=== PATIENT | male | born 1950 | race Caucasian/White ===

== ENCOUNTER 2020-10-16 08:57 | Outpatient (REF) | payer OTHER, SELFPAY ==
[2020-10-16 10:18] LABS: Glucose Urine UA NEG (NEG); Leukocyte Esterase Urine NEG (NEG); Nitrite Urine NEG (NEG); PH 6.5 (5.0-8.0); Specific Gravity - Urine 1.015 (1.005-1.025); Urine Blood NEG (NEG); Urine Ketones NEG (NEG); Urine Protein NEG (NEG-TRACE)
[2020-10-16 10:21] LABS: Basophils Percent Auto 0.9 % (0-2); Eosinophils Absolute Auto 0.3 X10*3/uL (0.0-0.4); Eosinophils Percent Auto 7.4 % (0-4); Hematocrit 39.3 % (42-52); Hemoglobin 13.1 g/dl (14.0-18.0); Imm Gran Abs Auto 0.01 X10*3/uL (0.00-0.03); Imm Gran Pct Auto 0.3 % (0.0-0.4); Lymphocytes Absolute Auto 1.2 X10*3/uL (1.2-4.9); Lymphocytes Percent Auto 36.3 % (20-40); MANUAL DIFF FLAG SCAN; Mean Corpuscular HGB Conc 33.3 g/dl (31.0-36.0); Mean Corpuscular Hemoglobin 30.5 pg (27.0-33.0); Mean Corpuscular Volume 91.4 fL (80-98); Monocytes Absolute Auto 0.8 X10*3/uL (0.1-1.2); Monocytes Percent Auto 23.8 % (2-11); Neutrophils Absolute Auto 1.1 X10*3/uL (2.0-8.3); Neutrophils Percent Auto 31.3 % (45-73); Platelet Count 164 X10*3/uL (160-400); Red Cell Distribution Width 12.3 % (11.0-16.0); SCAN SMEAR FLAG 1; White Blood Count 3.4 X10*3/uL (4.8-10.8)
[2020-10-16 10:22] LABS: Appearance Urine CLEAR; Color Urine YELLOW
[2020-10-16 10:31] LABS: RBC Urine 0-2 /HPF (0); WBC Urine 0 /HPF (0-4)
[2020-10-16 10:39] LABS: Alanine Aminotransferase 26 U/L (0-40); Albumin Level 4.4 g/dL (3.5-5.0); Alkaline Phosphatase 82 U/L (39-117); Anion Gap 12 (12-20); Aspartate Amino Transferase 27 U/L (5-37); Bilirubin Total 1.3 mg/dL (0.0-1.0); Blood Urea Nitrogen 20 mg/dL (9-16); C Reactive Protein 0.07 mg/dL (< or = 0.50); Carbon Dioxide 26 mmol/L (22-29); Chloride 106 mmol/L (96-108); Cholesterol 133 mg/dL; Estimated Glomerular Filt Rate 47; Glucose Random 95 mg/dL (60-115); HDL Cholesterol 41 mg/dL; LDL Cholesterol Calculated 75 mg/dl; Potassium 4.5 mmol/L (3.3-5.1); Sodium 139 mmol/L (135-145); Triglycerides 89 mg/dL
[2020-10-16 10:59] LABS: PSA,Total (Free>4and<10) 4.95 ng/mL (0.00-4.00); Thyroid Stimulating Hormone 0.47 uIU/mL (0.32-4.0)
[2020-10-16 11:29] LABS: SLIDE REVIEW VERIFIED
[2020-10-16 11:39] LABS: Erythrocyte Sedimentation Rate 8 MM/HR (0-15)
[2020-10-18 13:27] LABS: Free Prostate Spec Ag 1.6 ng/mL; Percent Free Prostate Spec Ag 36 % (calc) (>25); Prostate Specific Ag Total 4.4 ng/mL (< OR = 4.0)
[2020-10-19 11:27] LABS: CRP High Sensitivity 0.7 mg/L
== END 2020-10-16 08:58 | disposition home or self-care (01) ==
LOC: HO.LAB 08:57
DX: Z00.01 Encounter for general adult medical examination with abnormal findings (principal); Z12.5 Encounter for screening for malignant neoplasm of prostate; N40.0 Benign prostatic hyperplasia without lower urinary tract symptoms
CPT/HCPCS: 36415; 80053; 80061; 81001; 84153; 84154; 84443; 85025; 85652; 86140; 86141

== ENCOUNTER 2021-01-25 12:44 | Emergency (ER) | payer OTHER, SELFPAY ==
--- NOTE | ~2021-01-25 | XR_ITS ---
EXAMINATION: RIGHT HAND. RIGHT FINGERS CLINICAL INFORMATION: Pinky injury. Pain COMPARISON: None TECHNIQUE: Right hand 3 views right fingers 2 views. FINDINGS: Right hand: There is a comminuted fracture of proximal phalanx mid segment fifth digit. The fracture does not extend to the articular surface. Rest of the visualized fingers in the right hand is unremarkable. Soft tissue laceration suspected along the proximal phalanx fifth digit XR/XR hand RT min 3V IMPRESSION: Comminuted fracture proximal phalanx mid segments of digit. There is soft tissue laceration as well. The fracture does not extend to the articular surface.
--- NOTE | ~2021-01-25 | XR_ITS ---
EXAMINATION: RIGHT HAND. RIGHT FINGERS CLINICAL INFORMATION: Pinky injury. Pain COMPARISON: None TECHNIQUE: Right hand 3 views right fingers 2 views. FINDINGS: Right hand: There is a comminuted fracture of proximal phalanx mid segment fifth digit. The fracture does not extend to the articular surface. Rest of the visualized fingers in the right hand is unremarkable. Soft tissue laceration suspected along the proximal phalanx fifth digit XR/XR finger RT min 2V IMPRESSION: Comminuted fracture proximal phalanx mid segments of digit. There is soft tissue laceration as well. The fracture does not extend to the articular surface.
[2021-01-25 12:50] VITALS: BP 158/74; PULSE 67; RESP 18; TEMP 36.6; O2SAT 98; BMI 28.2
[2021-01-25] MEDS: Lidocaine HCl 1 % MPF 5 ML VIAL SUBCUT ×3 (13:56→14:15)
[2021-01-25] MEDS: Diphth,Pertus(ACell),Tet Adult 0.5 ML SYRINGE IM (13:57)
[2021-01-25] MEDS: cephALEXin 500 MG CAPSULE PO (14:57)
--- NOTE | 2021-01-25 14:59 | ED.WOUNDLAC ---
HPI - Wound/Laceration General Chief Complaint: Wound/Laceration Stated Complaint: R HAND LAC Time Seen by Provider: 01/25/21 13:30 History of Present Illness HPI narrative: Patient complains of laceration to right hand and right pinky when a piece of wood kicked back and hit him in the hand well and was using a table saw, he does complain of some decreased sensation and difficulty moving the finger, no other injury Related Data Home Medications Medication Instructions Recorded Confirmed amlodipine 1 tab PO DAILY 02/01/21 02/01/21 atorvastatin 1 tab PO DAILY 02/01/21 02/01/21 cephalexin 1 tab PO QID 02/01/21 02/01/21 methylprednisolone mg PO 02/01/21 02/01/21 metoprolol succinate 1 tab PO DAILY 02/01/21 02/01/21 omeprazole 1 cap PO QAM 02/01/21 02/01/21 tramadol 1 tab PO Q6H PRN 02/01/21 02/01/21 valsartan 1 tab PO DAILY 02/01/21 02/01/21 Previous Rx's Medication Instructions Recorded hydrocodone-acetaminophen 1 - 2 tab PO Q6H PRN #20 tab 02/01/21 Allergies Allergy/AdvReac Type Severity Reaction Status Date / Time codeine [From CODITUSSIN AC] Allergy Intermediate VOMITING Verified 01/31/21 11:34 guaifenesin Allergy Intermediate VOMITING Verified 01/31/21 11:34 [From CODITUSSIN AC] lactose [LACTOSE] Allergy Intermediate GI Verified 01/31/21 11:34 UPSET/DIARRHEA liquid codein Allergy Unknown Unknown Uncoded 01/25/21 14:58 Review of Systems Review of Systems: positive for right hand and right 5th finger laceration Negatives are no head injury no headache no neck pain no back pain no difficulty breathing no fainting Yes all other systems are reviewed and are negative PMFSH Past Medical History Source: nursing notes reviewed Medical History Arthritis High cholesterol HTN (hypertension) Social History Social History Patient Tobacco Use Status: Current someday Tobacco user Tobacco use type: Cigar Use of substances other than those prescribed or required for medical reasons: No Are you DNR?: No Advance Directives: No Advance Directives Information Provided: Yes 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 Physical Exam Vital Signs: Vital Signs: Last Vital Signs Temp 98 F 01/25/21 12:50 Pulse 67 01/25/21 12:50 Resp 18 01/25/21 12:50 BP 158/74 H 01/25/21 12:50 Pulse Ox 98 01/25/21 12:50 Body Mass Index 28.2 general appearance no distress Head is normocephalic atraumatic Neck is supple Respiratory no distress There is a 4 cm laceration at the base of the right 5th finger which is into subcutaneous tissue, the finger is deformed at the middle phalanx and extension and flexion are poorly evaluated so cannot confirm whether there is a tendon deficit, sensation is decreased distal Course Course Course Narrative: right hand laceration 4 cm is cleansed and irrigated with normal saline, explored for foreign body none seen, lidocaine was used for anesthesia using 6 cc of 1% lidocaine The wound was closed with 5 0 nylon suture 7 sutures, bleeding was controlled and bandage was applied X-ray did show a comminuted open fracture so antibiotic was started and patient is referred to Hand doctor for evaluation of possible tendon deficits which could not be evaluated properly given the fracture and for further treatment for opened angulated fracture Discharge Plan Discharge Clinical Impression: Open fracture Patient Disposition: Home, Self-Care Additional Instructions: X-ray showed you broke the finger with a deep large laceration so you need antibiotics to prevent infection We gave a tetanus shot I could not fully evaluate tendon function so you need to follow-up with hand doctor for re-evaluation and to see if you need any further procedure for the broken finger Return any time for redness pain swelling fever red stripe up arm discharge from wound any sign of infected Prescriptions: No Action atorvastatin 40 mg tablet 1 tab PO DAILY RF: 0 metoprolol succinate 200 mg tablet extended release 24 hr 1 tab PO DAILY RF: 0 amlodipine 5 mg tablet 1 tab PO DAILY RF: 0 omeprazole 40 mg capsule,delayed release(DR/EC) 1 cap PO QAM RF: 0 tramadol 50 mg tablet 1 tab PO Q6H PRN (Reason: Pain) RF: 0 valsartan 320 mg tablet 1 tab PO DAILY RF: 0 cephalexin 500 mg tablet 1 tab PO QID RF: 0 methylprednisolone 4 mg tablets,dose pack PO RF: 0 hydrocodone-acetaminophen 5-325 mg tablet 1 - 2 tab PO Q6H PRN (Reason: pain) Qty: 20 RF: 0 Referrals: Crista Sheth MD [Physician] - 2 days (Open fracture left 5th finger proximal phalanx, difficult to evaluate full flexion due to the fracture so cannot confirm tendon function normal) Interventions: ED Discharge Assessment Last Done: 01/25/21 15:08 Discharge Date/Time: 01/25/21 15:16
== END 2021-01-25 15:16 | disposition home or self-care (01) ==
PROVIDERS: Emergency Provider Emergency Medicine Emergency Medical Services
DX: S62.616B Displaced fracture of proximal phalanx of right little finger, initial encounter for open fracture (principal); I10 Essential (primary) hypertension; W20.8XXA Other cause of strike by thrown, projected or falling object, initial encounter; Y93.89 Activity, other specified; Y92.9 Unspecified place or not applicable; Y99.9 Unspecified external cause status
CPT/HCPCS: 12042; 73130; 73140; 90471; 90715; 99283; 99284

== ENCOUNTER 2021-01-28 07:27 | Outpatient (REF) | payer OTHER, SELFPAY ==
--- NOTE | ~2021-01-28 | XR_ITS ---
EXAMINATION: XR HAND, RIGHT CLINICAL INFORMATION: Fifth digit injury. Follow-up radiograph. COMPARISON: Right hand radiographs on 01/25/2021. TECHNIQUE: PA, lateral, and oblique views of the right hand. FINDINGS: Redemonstrated is a comminuted fracture of the proximal phalanx of the 5th digit. The fracture does not appear to extend into either articular surface. The remainder of the right hand is unchanged in appearance from the recent prior examination. No additional fractures identified. XR/XR hand RT min 3V IMPRESSION: Comminuted fracture of the proximal phalanx of the 5th digit, not significantly changed from 01/25/2021.
== END 2021-01-28 07:28 | disposition home or self-care (01) ==
LOC: HO.XRAY 07:27
PROVIDERS: Visit Provider Physician Assistant
DX: S62.617B Displaced fracture of proximal phalanx of left little finger, initial encounter for open fracture (principal)
CPT/HCPCS: 73130

== ENCOUNTER 2021-01-28 08:55 | Outpatient (REF) | payer OTHER, SELFPAY | END 2021-01-28 08:56 | disposition home or self-care (01) | LOC: HO.HOSX 08:55 | PROVIDERS: Visit Provider Physician Assistant | DX: Z13.89 Encounter for screening for other disorder (principal) ==

== ENCOUNTER 2021-01-31 07:18 | Outpatient (REF) | payer OTHER, SELFPAY ==
--- NOTE | ~2021-01-31 | XR_ITS ---
EXAMINATION: XR HAND, RIGHT CLINICAL INFORMATION: Right finger fracture. COMPARISON: 01/28/2021 and studies dating back to 01/25/2021. TECHNIQUE: PA, lateral, and oblique views of the right hand. FINDINGS: There is again noted to be a comminuted fracture involving the 5th proximal phalanx with approximately 3 mm of volar displacement of the major distal fracture fragment and dorsal angulation of the major distal fracture fragment. No significant change in alignment is appreciated. No definite new periosteal reaction. There is degenerative change of the distal interphalangeal joint with some marginal spurring and some subcortical irregularity of the 2nd and 5th fingers. XR/XR hand RT min 3V IMPRESSION: No significant change in alignment of comminuted fracture proximal 5th phalanx without definite periosteal new bone formation identified.
== END 2021-01-31 07:19 | disposition home or self-care (01) ==
LOC: HO.HOSX 07:18
PROVIDERS: Visit Provider Physician Assistant
DX: S62.616B Displaced fracture of proximal phalanx of right little finger, initial encounter for open fracture (principal); S64.40XA Injury of digital nerve of unspecified finger, initial encounter
CPT/HCPCS: 73130

== ENCOUNTER 2021-02-01 09:36 | Day surgery (SDC) | payer OTHER, SELFPAY ==
--- NOTE | 2021-01-31 11:01 | HO.ANESPROP2 ---
Documented by User: Alondra Suzan 01/31/21 11:03 HPI - Anesthesia Eval Consult details Narrative: 71yo M for Right Small Finger Fx ORIF,I&D,poss fdp and fds repair,poss digital nerve repair PMFSH Active Problems Active Problems: All Active Problems (Updated 01/28/21 @ 11:58 by Zina Watt PA-C) Open finger fracture (Acute) Fracture of proximal phalanx of finger of right hand (Acute) Hand pain (Acute) Past Medical History Medical History Arthritis High cholesterol HTN (hypertension) Social History Social History Patient Tobacco Use Status: Current someday Tobacco user Tobacco use type: Cigar Use of substances other than those prescribed or required for medical reasons: No Are you DNR?: No Advance Directives: No Advance Directives Information Provided: Yes 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 Meds Allergies Allergy/AdvReac Type Severity Reaction Status Date / Time codeine [From CODITUSSIN AC] Allergy Intermediate VOMITING Verified 01/31/21 11:34 guaifenesin Allergy Intermediate VOMITING Verified 01/31/21 11:34 [From CODITUSSIN AC] lactose [LACTOSE] Allergy Intermediate GI Verified 01/31/21 11:34 UPSET/DIARRHEA liquid codein Allergy Unknown Unknown Uncoded 01/25/21 14:58 Home Medications Medication Instructions Recorded Confirmed Last Taken Type amlodipine 1 tab PO DAILY 02/01/21 02/01/21 02/01/21 History atorvastatin 1 tab PO DAILY 02/01/21 02/01/21 02/01/21 History cephalexin 1 tab PO QID 02/01/21 02/01/21 02/01/21 History methylprednisolone mg PO 02/01/21 02/01/21 Unknown History metoprolol succinate 1 tab PO DAILY 02/01/21 02/01/21 02/01/21 History omeprazole 1 cap PO QAM 02/01/21 02/01/21 02/01/21 History tramadol 1 tab PO Q6H PRN 02/01/21 02/01/21 Unknown History valsartan 1 tab PO DAILY 02/01/21 02/01/21 02/01/21 History Exam Exam Date and Time: January 31, 2021 1101 Assessment and Plan Assessment Anesthesia Assessment: Chart Reviewed Documented by User: Salma Marr 02/01/21 10:44 PMF Past Medical History Medical History Arthritis High cholesterol HTN (hypertension) Social History Social History Patient Tobacco Use Status: Current someday Tobacco user Tobacco use type: Cigar Use of substances other than those prescribed or required for medical reasons: No Are you DNR?: No Advance Directives: No Advance Directives Information Provided: Yes 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 Meds Allergies Allergy/AdvReac Type Severity Reaction Status Date / Time codeine [From CODITUSSIN AC] Allergy Intermediate VOMITING Verified 01/31/21 11:34 guaifenesin Allergy Intermediate VOMITING Verified 01/31/21 11:34 [From CODITUSSIN AC] lactose [LACTOSE] Allergy Intermediate GI Verified 01/31/21 11:34 UPSET/DIARRHEA liquid codein Allergy Unknown Unknown Uncoded 01/25/21 14:58 Home Medications Medication Instructions Recorded Confirmed Last Taken Type amlodipine 1 tab PO DAILY 02/01/21 02/01/21 02/01/21 History atorvastatin 1 tab PO DAILY 02/01/21 02/01/21 02/01/21 History cephalexin 1 tab PO QID 02/01/21 02/01/21 02/01/21 History methylprednisolone mg PO 02/01/21 02/01/21 Unknown History metoprolol succinate 1 tab PO DAILY 02/01/21 02/01/21 02/01/21 History omeprazole 1 cap PO QAM 02/01/21 02/01/21 02/01/21 History tramadol 1 tab PO Q6H PRN 02/01/21 02/01/21 Unknown History valsartan 1 tab PO DAILY 02/01/21 02/01/21 02/01/21 History Exam Airway Mallampati Class: II (Edentulous) TM Dist: >3cm Neck ROM: Full Denture: Upper and Lower Loose/Missing/Broken Teeth: Yes, Upper and Lower Heart: RRR Lungs: CTA Assessment and Plan Assessment Anesthesia Assessment: Anesthesia Plan Discussed and Chart Reviewed Final Anesthetic Review NPO: Yes ASA Class: II Final Preanesthetic Review: Meds/Allgs Chart Reviewed, Consent Obtained/Reviewed and Anes Risks/Benef Reviewed Patient Risk: Low Procedure Risk: Low Anesthetic Plan Anesthetic Plan: GA Disposition: Standard PACU
[2021-02-01] VITALS (7 sets, daily range): BP systolic 127–178; BP diastolic 57–86; PULSE 62–73; RESP 16; TEMP 36.3–36.4; O2SAT 97–99; BMI 28.2
--- NOTE | ~2021-02-01 | FL_ITS ---
EXAMINATION: XR FLUOROSCOPY WITH IMAGES CLINICAL INFORMATION: Reduction right fifth finger proximal phalanx COMPARISON: Radiographs right hand 01/31/2021 TECHNIQUE: Fluoroscopy performed by Dr. Crista Sheth. Fluoroscopy time: 1.1 minutes DAP: 277.33 mGycm2 Images: 7 FINDINGS: The comminuted fracture fifth finger proximal phalanx is reduced and fixed with 2 metallic pins. Major fracture fragments are in near anatomic alignment. No dislocation. FL/FL guidance in OR IMPRESSION: Status post reduction comminuted fracture right fifth finger proximal phalanx.
[2021-02-01] MEDS: Lactated Ringers 1,000 ML 100 ML IVCONT (10:23)
--- NOTE | 2021-02-01 11:01 | MHC.SHP ---
Pre-Procedural Eval Section A Date of Service: 02/01/21 Section B Chief Complaint: small finger fx Allergies: Allergies Allergy/AdvReac Type Severity Reaction Status Date / Time codeine [From CODITUSSIN AC] Allergy Intermediate VOMITING Verified 01/31/21 11:34 guaifenesin Allergy Intermediate VOMITING Verified 01/31/21 11:34 [From CODITUSSIN AC] lactose [LACTOSE] Allergy Intermediate GI Verified 01/31/21 11:34 UPSET/DIARRHEA liquid codein Allergy Unknown Unknown Uncoded 01/25/21 14:58 Plan I have reviewed the history and physical and performed a pertinent physical examination on my patient. No changes have occurred unless specified.
--- NOTE | 2021-02-01 11:02 | W.PM.OPN ---
Operative Note Operative Note Date of Service: 02/01/21 Narrative: Operative Note Narrative: Preop diagnosis: 1. right small finger proximal phalanx fracture, comminuted and open 2. Near amputation of right small finger at the base of the proximal phalanx with injury to the ulnar digital nerve and possibly flexor tendons. Postop diagnosis: 1. right small finger proximal phalanx fracture, comminuted and open 2. Near amputation of right small finger at the base of the proximal phalanx with ulnar digital nerve and ulnar digital artery avulsions Procedure: 1. right small finger proximal phalanx fracture I&D 2. right small finger proximal phalanx fracture open reduction internal fixation 3. right small finger ulnar digital nerve neurolysis 4. Right small finger I and D of flexor digitorum superficialis and flexor digitorum profundus tendons at the A2 devyn 5. Ulnar nerve block Surgeon: Crista Sheth MD Anesthesia: General Findings: finger fracture Implants: 0.045 K-wires times 2 Tourniquet time: 75 minutes EBL: Minimal Specimen: None Drains: None Complications: None Disposition: Brought to the recovery room in stable condition Plan: continue oral antibiotics until finished. Follow-up in 1 week for a wound check, postop radiographs and for placement in a short-arm Finger spica cast or splint Anticipate K-wire removal in 4-5 weeks based on interval bony healing Educate the patient that full fracture healing anticipated in approximately 8-12 weeks. Indications: The patient is 71 years old with a near amputation of the right small finger at its base following a table saw injury with kickback of a piece of wood into his right small finger. . The risks and benefits of operative treatment, including but not limited to risk of damage to blood vessels, nerves, tendons, infection, recurrence, delayed or nonunion of fracture, persistent pain or numbness, incomplete resolution of preoperative symptoms, or need for further surgery were discussed with the patient and they wished to proceed with surgery. Procedure: Once consent was obtained patient was brought back to the operating suite and placed in the operating table in a supine position. . Perioperative antibiotics and general anesthesia was administered by the anesthesia team. A tourniquet was applied to the proximal aspect of the Right upper extremity and the limb was prepped and draped in a standard surgical fashion. the limb was elevated and exsanguinated with an Esmarch bandage and the tourniquet inflated to 250 mm Hg for a total tourniquet time of 75 minutes. sutures were removed from and 8 cm long transverse laceration extending from the Dorsal ulnar aspect of the base of the small finger volarly to just proximal to the 4th webspace. the wound was opened using tenotomy scissors. The wound clearly extended down to the flexor tendon sheath at the A2 devyn, as well as the underlying comminuted fracture of the shaft of the proximal phalanx. And exploration of the wound proceeded. The ulnar digital artery was identified and found to be avulsed. The ulnar digital nerve was identified and a neurolysis was performed, evaluating the ends of the ulnar digital nerve. It to had sustained an avulsion injury to the point of rupture And was deemed irreparable. The proximal phalanx fracture was comminuted and in an apex volar position protruding volar to the flexor tendons on the ulnar side and also up against the volar surface of the flexor tendons. The wound was clean with no debris or evidence of foreign body. The flexor tendons were exposed, as there was some disruption of a portion of the A2 devyn. Both the FDP and FDS tendons were evaluated and found to be intact. The tendons were copiously irrigated. And irrigation and debridement was also performed on the open fracture site, and an open reduction of the fracture was performed. The FluoroScan was used during the case to assist with our fracture reduction and placement of all implants. A 0.045 K-wire was placed through the ulnar base of the proximal phalanx. This was advanced across the fracture site and into the shaft. A 2nd 0.045 K-wire was placed through the radial base of the proximal phalanx and similarly advanced across the fracture site and into the shaft. Fracture alignment was assessed for both angular and rotational malalignment. Once satisfied with our fracture reduction and implant placement, the K-wires were bent and cut short and pin caps applied. Final fluoroscopic images were then obtained. evaluation of the flexor tendons again over the fracture site revealed that the tendons were no longer passing directly over the sharp ends of the fracture site. The Wound was again copiously irrigated with normal saline. nonviable tissue was debrided. I also sharply debrided the skin edges using a 15. Blade and iris scissors to facilitate healing. The skin edges were then reapproximated with some 4-0 and 5 0 Prolene suture material. [An ulnar nerve block was then performed by infiltrating about the ulnar nerve at the wrist with some 1% lidocaine with epinephrine for postop pain control.] A Sterile dressing and short volar splint extending to the forearm To the fingertipswas applied. The patient appears to have tolerated the procedure well and with no complications. All digits were well vascularized at the conclusion of the case.
== END 2021-02-01 14:51 | disposition home or self-care (01) ==
PROVIDERS: Visit Provider Orthopaedic Surgery
PROC: (CPT 26735; principal; 2021-02-01 11:20)
DX: S62.616B Displaced fracture of proximal phalanx of right little finger, initial encounter for open fracture (principal); S64.496A Injury of digital nerve of right little finger, initial encounter; S65.011A Laceration of ulnar artery at wrist and hand level of right arm, initial encounter; W45.8XXA Other foreign body or object entering through skin, initial encounter; W29.8XXA Contact with other powered hand tools and household machinery, initial encounter; Y93.89 Activity, other specified; Y92.9 Unspecified place or not applicable; Y99.8 Other external cause status; I10 Essential (primary) hypertension; F17.290 Nicotine dependence, other tobacco product, uncomplicated; Z79.899 Other long term (current) drug therapy; Z88.8 Allergy status to other drugs, medicaments and biological substances
CPT/HCPCS: 26735; 64450; 64417; J0131; J0690; J1100; J1170; J2250; J2405; J3010

== ENCOUNTER 2021-02-09 10:27 | Outpatient (REF) | payer OTHER, SELFPAY ==
--- NOTE | ~2021-02-09 | XR_ITS ---
EXAMINATION: XR HAND, RIGHT CLINICAL INFORMATION: Pain COMPARISON: Previous x-ray most recent 01/31/2021 TECHNIQUE: PA, lateral, and oblique views of the right hand. FINDINGS: There are 2 wires transfixing the comminuted fracture of the proximal phalanx of the fifth finger. Orthopedic hardware appears unchanged. Fracture lines are still seen. Bone alignment is unchanged. No bony callus formation is seen. XR/XR hand RT min 3V IMPRESSION: ORIF of comminuted fracture proximal phalanx of the fifth finger.
== END 2021-02-09 10:28 | disposition home or self-care (01) ==
LOC: HO.HOSX 10:27
PROVIDERS: Visit Provider Orthopaedic Surgery
DX: S64.40XA Injury of digital nerve of unspecified finger, initial encounter (principal); S62.616B Displaced fracture of proximal phalanx of right little finger, initial encounter for open fracture
CPT/HCPCS: 73130

== ENCOUNTER 2021-02-16 08:24 | Outpatient (REF) | payer OTHER, SELFPAY ==
--- NOTE | ~2021-02-16 | XR_ITS ---
EXAMINATION: XR HAND, RIGHT CLINICAL INFORMATION: Right hand pain. Fracture follow up. COMPARISON: Most recent right hand radiographs dated 02/09/2021. TECHNIQUE: PA, lateral, and oblique views of the right hand. FINDINGS: Orthopedic pins redemonstrated across a comminuted, mildly displaced 5th proximal phalangeal fracture. No evidence of hardware complication. No change in fracture alignment. Mild new bone/callus formation. XR/XR hand RT min 3V IMPRESSION: Orthopedic pins across a 5th proximal phalangeal fracture in unchanged anatomic alignment with mild new bone/callus formation.
== END 2021-02-16 08:25 | disposition home or self-care (01) ==
LOC: HO.HOSX 08:24
PROVIDERS: Visit Provider Orthopaedic Surgery
DX: S62.616B Displaced fracture of proximal phalanx of right little finger, initial encounter for open fracture (principal); S64.40XD Injury of digital nerve of unspecified finger, subsequent encounter
CPT/HCPCS: 73130

== ENCOUNTER → 2021-02-24 09:19 | Outpatient (BNVA) | payer OTHER, SELFPAY | PROVIDERS: PCP Orthopaedic Surgery; Visit Provider Orthopaedic Surgery ==

== ENCOUNTER 2021-03-09 08:13 | Outpatient (REF) | payer OTHER, SELFPAY ==
--- NOTE | ~2021-03-09 | XR_ITS ---
EXAMINATION: XR HAND, RIGHT CLINICAL INFORMATION: Right hand pain COMPARISON: February 16, 2021 and studies dating back to January 25, 2021 TECHNIQUE: PA, lateral, and oblique views of the right hand. FINDINGS: 2 pins are again seen transfixing fracture of the right fifth proximal phalanx. No change in alignment is identified. No change in appearance is seen. Fracture lines still evident. There remains degenerative joint disease involving the fifth distal interphalangeal joint with joint space narrowing and spurring present. There is some subchondral cyst formation is present at multiple other interphalangeal joint spaces. XR/XR hand RT min 3V IMPRESSION: No change in appearance or alignment of right fifth proximal phalanx fracture.
== END 2021-03-09 08:14 | disposition home or self-care (01) ==
LOC: HO.HOSX 08:13
PROVIDERS: Visit Provider Orthopaedic Surgery
DX: S64.40XA Injury of digital nerve of unspecified finger, initial encounter (principal); S62.616B Displaced fracture of proximal phalanx of right little finger, initial encounter for open fracture; M25.641 Stiffness of right hand, not elsewhere classified; M79.641 Pain in right hand
CPT/HCPCS: 73130

== ENCOUNTER 2021-04-09 08:40 | Outpatient (REF) | payer OTHER, SELFPAY ==
[2021-04-09 11:04] LABS: Alanine Aminotransferase 21 U/L (0-40); Albumin Level 4.5 g/dL (3.5-5.0); Alkaline Phosphatase 81 U/L (39-117); Anion Gap 14 (12-20); Aspartate Amino Transferase 23 U/L (5-37); Blood Urea Nitrogen 17 mg/dL (9-16); Calcium 9.9 mg/dL (8.4-10.2); Carbon Dioxide 25 mmol/L (22-29); Chloride 107 mmol/L (96-108); Cholesterol 135 mg/dL; Estimated Glomerular Filt Rate 42; Glucose Random 92 mg/dL (60-115); HDL Cholesterol 38 mg/dL; LDL Cholesterol Calculated 72 mg/dl; Potassium 4.9 mmol/L (3.3-5.1); Sodium 141 mmol/L (135-145); Triglycerides 127 mg/dL
[2021-04-09 12:02] LABS: Erythrocyte Sedimentation Rate 7 MM/HR (0-15)
[2021-04-11 12:32] LABS: CRP High Sensitivity 0.6 mg/L
== END 2021-04-09 08:41 | disposition home or self-care (01) ==
LOC: HO.LAB 08:40
DX: E78.2 Mixed hyperlipidemia (principal); I10 Essential (primary) hypertension
CPT/HCPCS: 36415; 80053; 80061; 85652; 86141

== ENCOUNTER 2021-04-19 13:30 | Outpatient (RCR) | payer OTHER, SELFPAY ==
--- NOTE | 2021-03-17 14:48 | MHC.OT.OEV ---
[address] [phone] F: [phone] Occupational Therapy Evaluation Diagnosis: Digital nerve laceration of right little finger Open fracture of proximal phalanx of right little finger Date of Onset: 01/25/21 Date of Surgery: 02/01/21 Attending Provider: Crista Sheth Prescribed Treatment: NITA AND HIRO MD Follow Up Appointment: 04/20/21 History of Current Condition: Pt was working with a tablesaw on 01/25/2021 when he hit a knot in the piece of wood that he was cutting. There was kicked back of this piece of wood into the ulnar aspect of his right hand causing an injury to the right small finger and ulnar aspect of the hand. He does not believe that his hand touch the table saw, but rather the injury was sustained by the piece of wood. He was taken to the operating room on 02/01/2021 where he underwent an I and D of his right small finger proximal phalanx fracture, and open reduction internal fixation of the proximal phalanx fracture. The ulnar digital nerve and ulnar digital artery were both torn with extensive injury and irreparable. The FDS and FDP tendons were found within the open flexor tendon sheath at the A2 devyn. They were intact, but unfortunately overlie the open comminuted proximal phalanx fracture. Pt removed from cast 03/09/21. Significant Medical History: N/A Precautions/Contraindications: POST-OP Patient Goals: GRASP GOLF CLUBS Hand Dominance: Left QuickDASH Score: 28% Prior Level of Function and Occupation Self Care, Employment, Leisure: RECENTLY RETURNED BACK TO WORK [employer], SELF EMPLOYED. LIFTS UP TO 75 POUNDS. 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 MODERATELY LIMITED WITH PARTICIPATING IN HOBBIES, INCLUDING SWINGING AND HOLDING GOLF CLUB. MAKING STEADY IMPROVEMENTS WITH GRASPING AND HOLDING ITEMS IN NON-DOMINANT UE. Sleep: DENIES TROUBLES Driving: MILD DIFFICULTIES HOLDING STEERING WHEEL Pain Assessment Pain Score: 0-2/10 Pain Scale Used: Numeric (0 - 10) Pain Location and Description: DORSAL MCP OF D5 Aggravating Factors: REPORTS STIFFNESS/PAIN IN AM Alleviating Factors: TAKING TRAMADOL FOR ARTHRITIC PAIN Skin and Soft Tissue Assessment Skin and Soft Tissue: Fibrosis Swelling Wound Scar Tissue Comments: SCAR TISSUE TO VOLAR MCP AND HEALED SCAR, TWO DORSAL PIN SITES HEALED Sensory Assessment Temperature: Left Impaired Light Touch: Proprioception: Vibration: Comments: SEMMES AMANDA: DISTAL TO MCP D5 IMPAIRED AT 4.56, ULNAR ASPECT OF THE HAND Edema Assessment Upper Extremity: Left Impaired Lower Extremity: Comments: CIRCUMFERENCE OF D5 PIPj: RIGHT 6.2 CM, LEFT 6.8 CM CIRCUMFERENCE OF D5 DIPj: RIGHT 5.7 CM, LEFT 5.4 CM CIRCUMFERENCE OF D2-D5 MCPs: RIGHT 23.5 CM, LEFT 23.0 CM Dexterity Assessment Dexterity: WFL Comments: WFL PER FUNCTIONAL DEXTERITY TEST Special Tests Comments: AROM(PROM) Strength Wrist Flexion: Extension: Ulnar Deviation: Radial Deviation: Comments: WFL Flexion: Extension: Ulnar Deviation: Radial Deviation: Comments: Digits Index MCP: PIP: DIP: Long MCP: PIP: DIP: Ring MCP: PIP: DIP: Small MCP: L 78, R 90 PIP: L 10/36, R 90 DIP: L 10/ 38, R 76 Comments: GROSSLY 6 CM TIP TO DPC OF RIGHT SMALL FINGER Gross Grasp: R 55 POUNDS, L 118 POUNDS Lateral Pinch: R 16, L 19 Two-Point Pinch: Three-Jaw Compa: Comments: [employer]MAX RUE HEALTHCARE SPECIALIST TESTING Patient Education Primary Language: Grenadian Computer Security Coordinator Required: No Current Knowledge: Understands information with skills for self-management Teaching Method: Demonstration Handouts Verbal Education Needs Identified on Evaluation: ADL's Disease Information Equipment Use Exercise Pain Safety How did patient/family demonstrate learning? Patient demonstrates Patient verbalizes Barriers to Learning: None Readiness for Learning: Accepting Who was educated? Patient Comments: Plan of Care Assessment: SARAH IS 6 WEEKS POST OP ORIF AND I&D OF R SMALL FINGER PROXIMAL PHALANX FRACTURE. HE IS LEFT HAND DOMINANT AND REPORTS A 28% LIMITATION PER THE QUICK DASH ASSESSMENT. OVERALL, HE IS DOING WELL, HAS LOW PAIN AND HAS RECENTLY RETURNED TO WORK. HIS GOAL IS TO RETURN TO PLAYING GOLF AND BEING ABLE TO SWING A GOLF CLUB. Pt WOULD CONTINUE TO BENEFIT FROM ONGOING SKILLED OT TO PROVIDE PATIENT EDUCATION, SCAR MOBILIZATION, EDEMA MANAGEMENT, SENSORY RE-ED, ROM, AND STRENGTH. STG Duration: 2 WEEKS Short Term Goals: IND HEP IND SCAR MOBILIZATION AND SELF MASSAGE IND EDEMA MANAGEMENT STRATEGIES IND USE OF HEAT/ICE IND USE OF SENSORY PROTECTIVE STRATEGIES DURING IADLs AND ADLs LTG Duration: 4 WEEKS Bond Runner Goals: L GRASP >80 POUNDS TOLERATE LIFTING >20 POUNDS WITH JOINT PROTECTION STRATEGIES AND LOW PAIN TOLERATE SWINGING AND GRASPING GOLF CLUB PIPj EXTENSION <5 DEGREES, PIPj FLEXION >45 DEGREES Frequency and Duration: The patient will be seen 2X/WEEK FOR 4 WEEKS Treatment Plan: Therapeutic Exercise Therapeutic Activity Home Exercise Program Splinting Neuro Re-ed Patient Education Desensitization/Sensory Re-ed Edema Control ADL Training Ultrasound NMES Iontophoresis Paraffin Fluidotherapy MHP Cold Packs Joint Mobilization Soft Tissue Mobilization Kinesiotaping Other (see comments) Electronically Signed By: JUANITA SANCHEZ/Marshall Reviewed/agree with student documentation: N/A Therapist: Please sign and return to therapist, Thank you for your referral.
--- NOTE | 2021-04-19 14:14 | MHC.OT.OP ---
[address] [phone] F: [phone] Occupational Therapy Progress Note Diagnosis: Digital nerve laceration of right little finger Open fracture of proximal phalanx of right little finger Date of Surgery: 02/01/21 Date of Evaluation: 03/17/21 Treatments to Date: 8 Subjective: I can do everything, and I can feel a bit more Pain Score: 0 Pain Location: Denies pain in small finger Objective Measures: LODGE ATTENDANT R 82 POUNDS R SF MCP 96 PIPj 60 DIP 46 *slight ext lag (scarring on dorsal digit) and pt w/ flexor weakness Status: Progressing Assessment: 11.5 weeks poot-op and doing well. Good functional black top roller, still limited ROM w/ small finger flexion, also with slight ext and flex lags due to adhesions at base of small finger. Needs reinforcement to increase scar management and sensory re-ed a part of home program. 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 Short Term Goals: IND HEP IND SCAR MOBILIZATION AND SELF MASSAGE (MET) IND EDEMA MANAGEMENT STRATEGIES (MET) IND USE OF HEAT/ICE (MET) IND USE OF SENSORY PROTECTIVE STRATEGIES DURING IADLs AND ADLs (MET) Supervisor Game Farm Goals: L GRASP >80 POUNDS (MET) TOLERATE LIFTING >20 POUNDS WITH JOINT PROTECTION STRATEGIES AND LOW PAIN (MET) TOLERATE SWINGING AND GRASPING GOLF CLUB (MET) PIPj EXTENSION <5 DEGREES, PIPj FLEXION >45 DEGREES Frequency and Duration: The patient will be seen 2x/wk for 3 wks Treatment Plan: Therapeutic Exercise Therapeutic Activity Home Exercise Program Patient Education Desensitization/Sensory Re-ed Edema Control ADL Training Ultrasound NMES Paraffin Fluidotherapy MHP Joint Mobilization Soft Tissue Mobilization Kinesiotaping Electronically Signed By: Joann Lambert OTR/L Reviewed/agree with student documentation: N/A Therapist:
--- NOTE | 2021-05-02 11:06 | MHC.OT.DC ---
[address] [phone] F: [phone] Occupational Therapy Discharge Note Provider: Crista Sheth Diagnosis: Digital nerve laceration of right little finger Open fracture of proximal phalanx of right little finger Date of Surgery: 02/01/21 Date of Evaluation: 03/17/21 Date of Discharge: 05/02/21 Treatments to Date: 8 Discharge Status: Achieved Goals Improved Function Independent with HEP Discharge Summary: MR ZENG HAS PROGRESSED WELL WITH HIS OT SERVICES. HE DENIES DIFFICULTIES WITH ADLs OR IADLs, ABLE TO HOLD HIS MEDICATION/ SMALL PILLS IN THE PALM OF HIS HAND. 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 Pt EDUCATION COMPLETED WITH RECOMMENDATIONS FOR ONGOING SCAR MOBILIZATION AND THER EX PROGRAM. SARAH REPORTS HE IS READY TO TRANSITION TO A SELF MANAGEMENT PROGRAM. D/C OT SERVICES. Electronically Signed By: MARIEL FLYNN OTR/Marshall Reviewed/agree with student documentation: N/A Therapist: Please Sign and return to therapist, thank you for your referral.
== END 2021-05-02 11:00 | disposition home or self-care (01) ==
LOC: HO.OT 13:30
PROVIDERS: Visit Provider Orthopaedic Surgery
DX: S62.616B Displaced fracture of proximal phalanx of right little finger, initial encounter for open fracture (principal); S64.40XD Injury of digital nerve of unspecified finger, subsequent encounter; M25.641 Stiffness of right hand, not elsewhere classified
CPT/HCPCS: 97035; 97110; 97140; 97167; 97530

== ENCOUNTER 2021-04-27 13:07 | Outpatient (REF) | payer OTHER, SELFPAY ==
--- NOTE | ~2021-04-27 | XR_ITS ---
EXAMINATION: XR HAND, RIGHT CLINICAL INFORMATION: Pain in the right hand. COMPARISON: Multiple priors. Most recent radiograph of the right hand dated from 03/09/2021. TECHNIQUE: PA, lateral, and oblique views of the right hand. FINDINGS: Interval removal of pins across a fracture within the right fifth proximal phalanx. The alignment is unchanged but the fracture line is less distinct and there has been callus formation. No new fractures. There is redemonstration of similar moderate joint space narrowing in the interphalangeal joint of the fifth digit with subcortical sclerosis and spurring. Milder joint space narrowing is identified in multiple other interphalangeal joints. XR/XR hand RT min 3V IMPRESSION: No change in alignment of the right fifth proximal phalanx fracture which demonstrates signs of interval healing. 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
== END 2021-04-27 13:08 | disposition home or self-care (01) ==
LOC: HO.HOSX 13:07
PROVIDERS: Visit Provider Orthopaedic Surgery
DX: S64.40XD Injury of digital nerve of unspecified finger, subsequent encounter (principal); S62.616D Displaced fracture of proximal phalanx of right little finger, subsequent encounter for fracture with routine healing
CPT/HCPCS: 73130

== ENCOUNTER 2022-07-14 09:12 | Outpatient (REF) | payer MEDICARE, SELFPAY ==
[2022-07-14 11:41] LABS: Appearance Urine Clear; Color Urine Yellow; Glucose Urine UA Negative (Negative); Leukocyte Esterase Urine Trace (Negative); Nitrite Urine Negative (Negative); Specific Gravity - Urine 1.015 (1.005-1.025); UMIC TRIGGER UA YES; Urine Blood Negative (Negative); Urine Ketones Negative (Negative); Urine Protein Negative (Neg-Trace)
[2022-07-14 11:42] LABS: Fentanyl, urine Not Detected (Not Detect)
[2022-07-14 11:51] LABS: Basophils Percent Auto 1.1 % (0-2); Eosinophils Absolute Auto 0.3 X10*3/uL (0.0-0.4); Eosinophils Percent Auto 8.2 % (0-4); Hematocrit 36.7 % (42.0-52.0); Hemoglobin 12.6 g/dl (14.0-18.0); Imm Gran Abs Auto 0.01 X10*3/uL (0.00-0.03); Imm Gran Pct Auto 0.3 % (0.0-0.4); Lymphocytes Absolute Auto 1.1 X10*3/uL (1.2-4.9); Lymphocytes Percent Auto 30.2 % (20-40); MANUAL DIFF FLAG SCAN; Mean Corpuscular HGB Conc 34.3 g/dl (31.0-36.0); Mean Corpuscular Hemoglobin 30.7 pg (27.0-33.0); Mean Corpuscular Volume 89.3 fL (80.0-98.0); Mean Platelet Volume 12.1 fL (9.4-12.4); Monocytes Absolute Auto 0.9 X10*3/uL (0.1-1.2); Monocytes Percent Auto 23.3 % (2-11); Neutrophils Absolute Auto 1.4 x10*3/uL (2.0-8.3); Neutrophils Percent Auto 36.9 % (45-73); Platelet Count 164 X10*3/uL (160-400); Red Blood Count 4.11 X10*6/uL (4.60-5.80); Red Cell Distribution Width 12.3 % (11.0-16.0); SCAN SMEAR FLAG 1; White Blood Count 3.8 X10*3/uL (4.8-10.8)
[2022-07-14 11:52] LABS: Bacteria Urine None Seen (None Seen); Hyaline Casts Urine 0-2 /LPF (0-2); RBC Urine 0-2 /HPF (0-2); Squamous Epithelial Cell Urine 0-2 /HPF (0-2); WBC Urine 0-5 /HPF (0-5)
[2022-07-14 12:19] LABS: Creatinine Urine 72.02 mg/dL; Microalbum/Creatinine Ratio Ur 9.7 ug/mg cr
[2022-07-14 12:26] LABS: SLIDE REVIEW VERIFIED
[2022-07-14 12:43] LABS: Amphetamine Screen Urine Not Detected (Not Detect); Barbiturates, Urine Not Detected (Not Detect); Benzodiazepines Screen Urine Not Detected (Not Detect); Cannabinoid Screen Urine Not Detected (Not Detect); Cocaine Screen Urine Not Detected (Not Detect); Opiate Screen Urine Not Detected (Not Detect)
[2022-07-14 12:56] LABS: Phencyclidine Screen Urine Not Detected (Not Detect)
[2022-07-14 13:43] LABS: Alanine Aminotransferase 23 U/L (0-40); Albumin Level 4.2 g/dL (3.5-5.0); Alkaline Phosphatase 72 U/L (39-117); Anion Gap 13 (12-20); Aspartate Amino Transferase 24 U/L (5-37); Blood Urea Nitrogen 18 mg/dL (9-16); Calcium 9.3 mg/dL (8.4-10.2); Carbon Dioxide 25 mmol/L (22-29); Chloride 105 mmol/L (96-108); Cholesterol 144 mg/dL; Estimated Glomerular Filt Rate 44; Glucose Fasting 98 mg/dL (60-99); HDL Cholesterol 43 mg/dL; LDL Cholesterol Calculated 83 mg/dl; Potassium 4.6 mmol/L (3.3-5.1); Prostate Specific Antigen Scr 5.59 ng/mL (<0.05-4.0); Sodium 138 mmol/L (135-145); TSH reflex Free T4 0.46 uIU/mL (0.32-4.0); Total Protein 6.6 g/dL (6.5-8.0); Triglycerides 93 mg/dL; Vitamin D 25-OH Total 63.2 ng/mL (>30)
== END 2022-07-14 09:13 | disposition home or self-care (01) ==
LOC: HO.WFDLDS 09:12
PROVIDERS: Visit Provider Family Medicine
DX: Z00.00 Encounter for general adult medical examination without abnormal findings (principal); Z12.5 Encounter for screening for malignant neoplasm of prostate; E55.9 Vitamin D deficiency, unspecified; M54.9 Dorsalgia, unspecified; I10 Essential (primary) hypertension; Z79.891 Long term (current) use of opiate analgesic
CPT/HCPCS: 36415; 80053; 80061; 80307; 81001; 82043; 82306; 84153; 84443; 85025

== ENCOUNTER → 2022-07-24 15:31 | Outpatient (BNVA) | payer MEDICARE, SELFPAY | PROVIDERS: PCP Family Medicine; Visit Provider Internal Medicine | DX: M47.816 Spondylosis without myelopathy or radiculopathy, lumbar region (principal); M47.814 Spondylosis without myelopathy or radiculopathy, thoracic region; F11.20 Opioid dependence, uncomplicated | CPT/HCPCS: 99202 ==

== ENCOUNTER → 2022-08-28 15:21 | Outpatient (REF) | payer MEDICARE, SELFPAY ==
--- NOTE | 2022-08-28 15:24 | CA_ITS ---
Transthoracic Echocardiogram Amended Patient (Last, First, Middle): Sami Lozoya G Gender: Male Date of : 1950 Age: 72 Procedure Date: 08/28/2022 Procedure Type: Transthoracic Echocardiogram Location: OP Height: 195.58 cm Weight: 102.06 kg BSA: 2.35 m2 Heart Rate: bpm BP: 146 / 62 mmHg Engineering Psychologist: Referring MD: Jalen Casiano MD Symptoms: R01.1 - Cardiac murmur, unspecified Study Quality: Adequate ECG Rhythm: Sinus Conclusions: - The left ventricular systolic function is normal. The calculated ejection fraction is 58% by biplane method. - Mildly increased right ventricular cavity size. - The left atrium is mildly dilated. - There is mild tricuspid valve regurgitation. Findings Left Ventricle Normal left ventricular cavity size. There is mildly increased left ventricular wall thickness. The left ventricular systolic function is normal. The calculated ejection fraction is 58% by biplane method. There is no evidence of regional wall motion abnormalities. Diastolic function is normal for age. There is moderate septal asymmetric hypertrophy. Right Ventricle Mildly increased right ventricular cavity size. There is normal right ventricular systolic function. Atria The left atrium is mildly dilated. Interatrial shunt cannot be excluded. The right atrium is normal in size. Aortic Valve There is a normal trileaflet aortic valve. There is no aortic valve stenosis. There is no aortic valve regurgitation. Mitral Valve The mitral valve appears normal. There is trace mitral valve regurgitation. There is no mitral valve stenosis. Pulmonic Valve The pulmonic valve is likely normal. There is trace to mild pulmonic valve regurgitation. Tricuspid Valve Normal tricuspid valve structure. There is mild tricuspid valve regurgitation. There is no evidence of pulmonary hypertension. Great Vessels The asc aorta is normal in size. Venous The inferior vena cava is normal in size and collapses greater than 50% with inspiration. Pericardium/Pleural There is no evidence of pericardial effusion. Prior Study Comparison Changes noted compared to prior study dated: 11/28/2013. PFO with right to left shunt on bubble described in prior study; not clearly seen in this study. Measurements 2D Linear Measurements IVSd: 1.39 0.6-0.9/0.6-1.0 cm LVIDd: 5.15 3.9-5.3/4.2-5.9 cm LVIDd Index: 2.19 2.4-3.2/2.2-3.1 cm/m2 LVIDs: 3.18 2.0-3.6 cm LVPWd: 1.28 0.7-1.1 cm Ao Root: 3.90 2.1-3.5 cm LA Diam: 4.30 2.7-3.8/3.0-4.0 cm LAIDs Index: 1.83 1.5-2.3 cm/m2 LV Mass: 355.29 67-162/88-224 g LV Mass Index: 151.19 43-95/49-115 g/m2 LVOT Diam: 2.40 3.0+(-)1.3 cm 2D Volumes LA Vol: 33.70 2D Systolic Function EF 4C: 53.00 >55% EF 2C: 60.10 >55% EF BiP: 57.70 >55% Mitral Valve MV Pk E: 0.90 MV PK A: 1.17 MV Decel Time: 212.00 E/A: 0.80 E'Lateral: 10.30 E'Medial: 7.07 E/E' Med: 12.70 E/E' Lat: 8.70 PHT: 62.00 MVA PHT: 3.55 Decel [place]: 4.22 Aortic Valve AoV Pk Bryon: 1.46 AoV Mn Bryon: 0.97 AoV VTI: 0.36 AoV Pk Grad: 9.00 Aov Mn Grad: 5.00 MARIANO Cont.VTI: 2.74 LVOT LVOT Pk Bryon: 0.88 LVOT Mn Bryon: 0.54 LVOT VTI: 0.22 LVOT Pk Grad: 3.00 LVOT Mn Grad: 1.00 LVOT Diam: 2.40 LVOT Area: 4.52 Diastolic Function MV Pk E: 0.90 MV Pk A: 1.17 E/A: 0.80 E'Medial: 7.07 E/E' Med: 12.70 E' Laterial: 10.30 E/E' Lat: 8.70 Right Ventricle TAPSE (mm): 36.00 TVS' Bryon: 16.00 Tricuspid Valve TR Pk Bryon: 2.38 TR Pk Grad: 23.00 RA Press: 3.00 RVSP: 26.00 Great Vessels Aorta Ao Root-2D: 3.90 2.0-3.7 cm Ao Asc: 3.50 2.1-3.4 cm Pulmonary Valve PV Pk Bryon: 1.00 Peak PV Grad: 4.00 Updated in Other Vendor System with Status of Final Keegan Hurd MD electronically signed on 08/29/2022 10:25:06 AM with status of Final
== END ==
LOC: HO.CARD 15:21
PROVIDERS: PCP Family Medicine; Visit Provider Family Medicine
DX: R01.1 Cardiac murmur, unspecified (principal)
CPT/HCPCS: 93306

== ENCOUNTER 2022-08-30 16:00 | Outpatient (RCR) | payer MEDICARE, SELFPAY ==
--- NOTE | 2022-08-09 18:12 | MHC.PT.EP ---
[facility] [place] Office [place] Office [place] Office [address] Willow Tran [address] [phone] F: [phone] F: [phone] F: [phone] F: [phone] Physical Therapy Plan of Care Date of Evaluation: Date of Surgery: N/A Diagnosis: thoracic and lumbar spondylosis (RC) Assessment: pt is a 72 y/o male presenting to physical therapy w/ referring diagnosis of thoracic and lumbar spondylosis. Impairments include pain, decreased range of motion, decreased strength, impaired functional mobility, impaired postural awareness, and altered ambulation mechanics. pt is a good candidate for skilled PT due to age, potential remediation of impairments, typyical disease/condition progression and prognosis, comorbidities, and motivation. pt would benefit from skilled PT intervention to provide a tailored strengthening and stretching exercise program, functional training, gait training, postural re-training, neuromuscular re-education, modalities as needed for pain, equipment safety demonstration. Frequency and Duration: The patient will be seen 1x/wk for 3 wks Short Term Goals: pt will be I w/ HEP to promote self-management of condition. Kst Operator Goals: pt will improve lumbar flexion by 25% to improve ease in lower body ADLs/dressing. pt will demo proper lifting mechanics x5 reps from floor to chest w/o verbal cueing to promote neutral spine w/ work-related tasks. Treatment Plan: Modalities to reduce pain, spasms and effusion. Manual therapy to restore motion and function. Therapeutic exercise to improve strength and flexibility. Neuromuscular re-education for posture and balance. Therapeutic activities to return to functional activities of daily living. Electronically signed by: Margie Orozco PT, DPT Please sign and return to therapist. Thank you for your referral.
--- NOTE | 2022-09-06 15:12 | MHC.PT.DC ---
[facility] [place] Office [place] Office [place] Office [address] Willow Tran 140 [facility] [phone] F: [phone] F: [phone] F: [phone] F: [phone] Physical Therapy Discharge Report Diagnosis: thoracic and lumbar spondylosis (RC) Date of Surgery: N/A Date of Evaluation: 08/09/22 Date of Discharge: 09/06/22 Treatments to Date: 4 Cancellations to Date: 1 No Shows to Date: 0 Discharge Status: Improved Function Recommend MD Follow-up Discharge Summary: The patient reported a slight improvement in his pain but still persistent symptoms. He was shown a home exercise program focusing more on spinal mobility and flexibility. He also found the TENS helpful in promoting muscle relaxation. He may benefit from an at-home TENS unit. He is discharged from this physical therapy plan of care. Electronically signed by: Margie Orozco PT, DPT Please sign and return to therapist. Thank you for your referral.
== END 2022-09-06 15:13 | disposition home or self-care (01) ==
LOC: HO.PT 16:00
PROVIDERS: Visit Provider Internal Medicine
DX: M47.816 Spondylosis without myelopathy or radiculopathy, lumbar region (principal); M47.814 Spondylosis without myelopathy or radiculopathy, thoracic region
CPT/HCPCS: 97014; 97110; 97161

== ENCOUNTER 2022-09-06 11:45 | Outpatient (REF) | payer MEDICARE, SELFPAY ==
[2022-09-06 14:46] LABS: Anion Gap 14 (12-20); Blood Urea Nitrogen 22 mg/dL (9-16); Calcium 9.3 mg/dL (8.4-10.2); Carbon Dioxide 23 mmol/L (22-29); Chloride 110 mmol/L (96-108); Estimated Glomerular Filt Rate 38; Glucose Random 97 mg/dL (60-115); Potassium 4.3 mmol/L (3.3-5.1); Sodium 143 mmol/L (135-145)
== END 2022-09-06 11:46 | disposition home or self-care (01) ==
LOC: HO.WFDLDS 11:45
PROVIDERS: Visit Provider Family Medicine
DX: Z00.00 Encounter for general adult medical examination without abnormal findings (principal); N18.9 Chronic kidney disease, unspecified
CPT/HCPCS: 36415; 80048

== ENCOUNTER 2022-10-13 09:32 | Outpatient (REF) | payer MEDICARE, SELFPAY ==
[2022-10-13 12:59] LABS: Alanine Aminotransferase 22 U/L (0-40); Alkaline Phosphatase 76 U/L (39-117); Anion Gap 13 (12-20); Aspartate Amino Transferase 21 U/L (5-37); Bilirubin Total 0.6 mg/dL (0.0-1.0); Blood Urea Nitrogen 17 mg/dL (9-16); Calcium 8.9 mg/dL (8.4-10.2); Carbon Dioxide 23 mmol/L (22-29); Chloride 106 mmol/L (96-108); Estimated Glomerular Filt Rate 44; Glucose Random 113 mg/dL (60-115); Potassium 4.1 mmol/L (3.3-5.1); Sodium 138 mmol/L (135-145); Total Protein 6.4 g/dL (6.5-8.0)
== END 2022-10-13 09:33 | disposition home or self-care (01) ==
LOC: HO.WFDLDS 09:32
PROVIDERS: Visit Provider Family Medicine
DX: N18.9 Chronic kidney disease, unspecified (principal)
CPT/HCPCS: 36415; 80053

== ENCOUNTER → 2022-10-20 08:59 | Outpatient (BNVA) | payer MEDICARE, SELFPAY | PROVIDERS: PCP Family Medicine; Visit Provider Nurse Practitioner Family | DX: R97.20 Elevated prostate specific antigen [PSA] (principal); R35.0 Frequency of micturition; R39.15 Urgency of urination | CPT/HCPCS: 99202 ==

== ENCOUNTER 2022-11-27 15:30 | Outpatient (REF) | payer MEDICARE, SELFPAY ==
--- NOTE | ~2022-11-27 | US_ITS ---
EXAMINATION: US RETROPERITONEAL COMPLETE (RENAL) CLINICAL INFORMATION: Frequency of micturition. COMPARISON: None available. TECHNIQUE: Real-time imaging of the kidneys and bladder. FINDINGS: RIGHT KIDNEY: 10.7 x 5.3 x 4.3 cm (SAG x AP x TRV). The kidney is normal in size, contour, and echogenicity. Renal cortical thickness is normal. No calculi or focal parenchymal lesions. No hydronephrosis. Slight convex protrusion of the right mid renal pole favored to reflect a prominent dromedary hump, isoechoic to the remainder of the renal parenchyma, however recommend confirmation with CT or MR renal mass protocol to ensure no underlying lesion. LEFT KIDNEY: 11.6 x 5.9 x 3.8 cm (SAG x AP x TRV). The kidney is normal in size, contour, and echogenicity. Renal cortical thickness is normal. No renal calculi or hydronephrosis. Benign-appearing 1.6 cm renal cyst, no imaging follow-up recommended. BLADDER: Well distended and normal. Bilateral ureteral jets are demonstrated. Prevoid bladder volume is 1281 mL. Postvoid bladder volume is 1235 mL. Urinary bladder diverticulum is noted. ADDITIONAL FINDINGS: Prostate is enlarged with a volume of 79.6 mL. US/US retroperitoneal comp IMPRESSION: 1. Slight convex protrusion of the right mid renal pole favored to reflect a prominent dromedary hump, isoechoic to the remainder of the renal parenchyma, however recommend confirmation with CT or MR renal mass protocol to ensure no underlying lesion. 2. Large postvoid bladder residual of 1235 mL. 3. Prostate is enlarged with a volume of 79.6 mL. 4. Urinary bladder diverticulum is noted. The report will be called to the ordering clinician by a [facility] Physician Contractor [employer] Building.
== END 2022-11-27 15:31 | disposition home or self-care (01) ==
LOC: HO.US 15:30
PROVIDERS: PCP Family Medicine; Visit Provider Nurse Practitioner Family
DX: R35.0 Frequency of micturition (principal); R39.15 Urgency of urination; R97.20 Elevated prostate specific antigen [PSA]
CPT/HCPCS: 76770

== ENCOUNTER 2022-11-28 07:10 | Outpatient (REF) | payer MEDICARE, SELFPAY ==
[2022-11-28 12:16] LABS: Anion Gap 13 (12-20); Blood Urea Nitrogen 20 mg/dL (9-16); Carbon Dioxide 24 mmol/L (22-29); Chloride 109 mmol/L (96-108); Estimated Glomerular Filt Rate 41; Glucose Random 94 mg/dL (60-115); Potassium 4.3 mmol/L (3.3-5.1); Sodium 142 mmol/L (135-145)
[2022-11-28 13:27] LABS: PSA,Total (Free>4and<10) 5.21 ng/mL (0.00-4.00)
[2022-11-30 09:34] LABS: Free Prostate Spec Ag 2.4 ng/mL; Percent Free Prostate Spec Ag 47 % (calc) (>25); Prostate Specific Ag Total 5.1 ng/mL (< OR = 4.0)
== END 2022-11-28 07:11 | disposition home or self-care (01) ==
LOC: HO.WFDLDS 07:10
PROVIDERS: Nurse Practitioner Family; Visit Provider Family Medicine
DX: Z00.00 Encounter for general adult medical examination without abnormal findings (principal); Z12.5 Encounter for screening for malignant neoplasm of prostate; N18.9 Chronic kidney disease, unspecified; R35.0 Frequency of micturition; R39.15 Urgency of urination; R97.20 Elevated prostate specific antigen [PSA]
CPT/HCPCS: 36415; 80048; 84153; 84154

== ENCOUNTER → 2022-12-01 11:03 | Outpatient (BNVA) | payer MEDICARE, SELFPAY | PROVIDERS: PCP Family Medicine; Referring Provider Family Medicine; Visit Provider Internal Medicine Cardiovascular Disease | DX: I42.2 Other hypertrophic cardiomyopathy (principal); I10 Essential (primary) hypertension | CPT/HCPCS: 93005; 99202 ==

== ENCOUNTER → 2022-12-06 11:42 | Outpatient (BNVA) | payer MEDICARE, SELFPAY | PROVIDERS: PCP Family Medicine; Visit Provider Nurse Practitioner Family | DX: N39.490 Overflow incontinence (principal); R97.20 Elevated prostate specific antigen [PSA]; N40.1 Benign prostatic hyperplasia with lower urinary tract symptoms; R33.8 Other retention of urine; R35.0 Frequency of micturition | CPT/HCPCS: 99212 ==

== ENCOUNTER → 2023-01-05 08:56 | Outpatient (REF) | payer MEDICARE, SELFPAY ==
--- NOTE | ~2023-01-05 | NM_ITS ---
Exercise Myocardial perfusion study Indication: Atherosclerotic cardiovascular disease to evaluate for myocardial ischemia Technique: The patient was brought in for an exercise perfusion study on 01/05/2023. Patient performed exercise as per Flo protocol and was injected 35 mCi of sestamibi was given intravenously one target HR was achieved. Images were obtained using the SPECT gamma camera interlaced with the gating device. Images were obtained in supine position. Resting perfusion study was performed on 01/09/2023. Patient was administered 35 mCi of sestamibi intravenously at rest. Images were then obtained in supine position. Images obtained with and without CT attenuation. Total DLP 107 mGy-cm. Images were processed with the software and compared side to side in short axis, horizontal long axis and vertical long axis views. Findings: The stress perfusion study showed non attenuated images show mildly reduced uptake in the basal inferior wall of the LV myocardium. Remainder of the LV myocardium is normally perfused. Attenuation corrected images show normal uptake of radiotracer in all segments of LV myocardium. The gated study shows mildly reduced LV systolic function with calculated LVEF of 45%, although visually there appears to be normal overall LV systolic function. LV cavity is normal in size. The gated study shows normal systolic wall thickening and contraction of all segments. There is no transient ischemic dilation. Resting study shows non attenuated images show mildly to moderately reduced uptake in the basal inferior wall of the LV myocardium. Attenuation corrected uptake. Gating at rest reveals normal systolic wall motion with ejection fraction at 53%. The findings are consistent with likely normal myocardial perfusion. NM/NM cardiolite stress test Impression: 1. Normal 2. Gated LVEF is 53% at rest 3. Transient ischemic dilatation not present Stress EKG is borderline positive for ischemia
--- NOTE | 2023-01-05 08:58 | CA_ITS ---
Acquisition Time: 2023-01-05 09:17:54 Total Exercise Time: 00:07:35 Test Indications: CAD Medications: SEE H Protocol: BETHANY Max HR: 127 BPM 85% of Pred: 149 BPM Max BP: 138/070 mmHG Max Work Load: 9.4 METS Exercise stress test with exercise 7 min 35 sec of Bethany protocol, briefly achieving 85% MPHR, with moderate sob, no chest discomfort, with isolated PACs, with blunted BP response with exercise with max exercise BP 120/40, then up to 132/50 at 2 min recovery. with EKG artifact at peak, then noted to have J point depression with upsloping STs early recovery followed by borderline ST depression inferiorly. Not able to exclude ischemia. Nuclear images pending. Test reviewed with Dr Gabriel Referred By: Juan Jose Gabriel Overread By: UMBERTO DUMONT
== END ==
LOC: HO.CARD 08:56
PROVIDERS: PCP Family Medicine; Visit Provider Internal Medicine Cardiovascular Disease
DX: I25.10 Atherosclerotic heart disease of native coronary artery without angina pectoris (principal)
CPT/HCPCS: 78452; 93017; A9500

== ENCOUNTER → 2023-01-16 14:57 | Outpatient (BNVA) | payer MEDICARE, SELFPAY | PROVIDERS: PCP Family Medicine; Visit Provider Urology | DX: R39.15 Urgency of urination (principal); R33.9 Retention of urine, unspecified | CPT/HCPCS: 52000; 99212 ==

== ENCOUNTER 2023-03-13 15:27 | Outpatient (AMB) | payer MEDICARE, SELFPAY ==
[2023-03-13 15:30] VITALS: BP 112/58; PULSE 67; O2SAT 96; BMI 27.4
--- NOTE | 2023-03-13 15:30 | A.OFFPC_ITS ---
Vital Signs 03/13/23 15:30 Height 6 ft 5 in Weight 231 lb 8 oz BMI 27.4 BP 112/58 L Blood Pressure Location Lt brachial Position Sitting Pulse 67 Pulse Source Pulse Oximeter Pulse Oximetry (%) 96 Oxygen Delivery Method Room Air Intake Visit Reasons: f/u HTN Intake Note: Patient is here for follow up on hypertension today. Allergies codeine [From CODITUSSIN AC] Allergy (Intermediate, Verified 03/13/23 15:33) VOMITING guaifenesin [From CODITUSSIN AC] Allergy (Intermediate, Verified 03/13/23 15:33) VOMITING lactose [LACTOSE] Allergy (Intermediate, Verified 03/13/23 15:33) GI UPSET/DIARRHEA Tobacco use date assessed: 03/13/23 Fall risk assessment: No Falls in past year Last assessed Fall Risk: 03/13/23 Dental Screening Dental Screen Date: 03/13/23 Did you have a dental visit in the last 12 months?: No Did you have a dental problem in the last 6 months where you did not have access to dental care?: No Was dental information given to patient?: No HPI f/u HTN HPI Details 73 y/o male presents to f/u hypertension. Blood pressure today is 112/58. He is on amlodipine 5mg and metoprolol 200mg daily. Also on valsartan 80mg daily. CRF and is followed by anthropologist. Pt reports constipation in the morning. He states he does not drink water much. COUNT INCLUDES THE [facility] Medical History Arthritis High cholesterol HTN (hypertension) Family History Father Diabetes Mother No problems noted. 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 Yony Mora, Mariaelena Olguin, Anirudh Ferguson and colleagues, with an educational dieter from [employer]. Physical exam (Primary Care) Vital Signs: Last Vital Signs Pulse 67 03/13/23 15:30 BP 112/58 L 03/13/23 15:30 Pulse Ox 96 03/13/23 15:30 Oxygen Delivery Method Room Air 03/13/23 15:30 BMI result Body Mass Index 27.4 Tobacco/Smoking Status: Tobacco use Status Tobacco use date assessed 03/13/23 03/13/23 15:37 Patient Tobacco Use Status Current someday Tobacco 03/13/23 15:37 Tobacco use type Cigar 03/13/23 15:37 e-Cigarette/Vaping Use Never Used 03/13/23 15:37 Thrive Assessment: Date of Thrive Assessment Date Thrive assessed 08/18/22 03/13/23 15:37 Assessment and Plan Assessment & Plan (1) Hypertension: Code(s): I10 - Essential (primary) hypertension Plan: Blood pressure is well controlled. Goal is less than 140/90 Continue current medication regimen (2) Chronic renal failure: Code(s): N18.9 - Chronic kidney disease, unspecified Plan: Due to check Renal function Labs ordered Has seen Nephrology and will refer back if needed Increase hydration (3) Constipation: Code(s): K59.00 - Constipation, unspecified Plan: Increase hydration Will give him a short course of MiraLax Orders: Orders Comprehensive Met. Panel Today N18.9 - Chronic kidney disease, unspecified Complete Blood Count Auto Diff Today D64.9 - Anemia, unspecified, Z00.00 - Encounter for general adult medical examination without abnormal findings Microalbumin, Random (w Creat) Today I10 - Essential (primary) hypertension, N18.9 - Chronic kidney disease, unspecified Medications: New polyethylene glycol 3350 (Miralax) 17 grams PO DAILY 10 ea 0RF 10 days Coding Level of Care Code Est Pt Level 3 (48679) Diagnoses Hypertension I10 Chronic renal failure N18.9 Constipation K59.00
== END 2023-03-13 16:09 | disposition home or self-care (01) ==
PROVIDERS: Visit Provider Family Medicine
DX: I12.9 Hypertensive chronic kidney disease with stage 1 through stage 4 chronic kidney disease, or unspecified chronic kidney disease (principal); N18.9 Chronic kidney disease, unspecified; K59.00 Constipation, unspecified
CPT/HCPCS: 99213

== ENCOUNTER 2023-05-01 09:11 | Outpatient (AMB) | payer MEDICARE, SELFPAY ==
--- NOTE | 2023-05-01 09:11 | A.OFFVIS_ITS ---
Intake Intake Visit Reasons: H&P (greenlight (05/07) Intake Note: patient is present for telehealth Allergies codeine [From CODITUSSIN AC] Allergy (Intermediate, Verified 05/01/23 09:12) VOMITING guaifenesin [From CODITUSSIN AC] Allergy (Intermediate, Verified 05/01/23 09:12) VOMITING lactose [LACTOSE] Allergy (Intermediate, Verified 05/01/23 09:12) GI UPSET/DIARRHEA HPI HPI Comments History of Present Illness Details Drew is a pleasant male. He is a patient Dr. Casiano. He seen for the following urologic conditions - neurogenic bladder - elevated PSA - erectile dysfunction Telemedicine Evaluation 15 min Consultation [employer] Carlos Alberto Video attempted Planned upcoming GreenLight laser prostatectomy Discussed postprocedure course He understands there may or may not be bladder recovery after the procedure Renal bladder ultrasound confirms incomplete emptying Stopped CIC after prostatic trauma Cystoscopy with large prostate Upcoming laser enucleation of the prostate with suprapubic tube placement Possible UTI antibiotics prescribed Neurogenic bladder On initial assessment found to have large postvoid residual of over 1000 cc PSA 11/26 5.1 Creatinine 1.7 Instructed on clean intermittent catheterization Medical therapy finasteride, terazosin Imaging - 11/26 renal bladder ultrasound 80 g pro state [facility] Medical History Arthritis High cholesterol HTN (hypertension) Family History Father Diabetes Mother No problems noted. 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 Current occupational exposures/hazards: No Cognitive needs: No Hearing needs: No Vision needs: No Review of Systems Const All systems reviewed & are unremarkable except as noted in HPI and below Reports no additional complaints Resp Reports no additional complaints GI Reports no additional complaints Reports as per HPI Musc Reports no additional complaints Physical Exam Telemedicine evaluation Appropriate responses Regular breathing rate and rhythm HEENT Head: Yes normal to inspection Ears: hearing grossly normal bilaterally Eyes General: appearance normal, both eyes and all related structures Neck Neck: Yes normal visual inspection Chest Chest palpation & inspection: normal inspection of the chest Resp Effort & Inspection: normal respiratory effort and able to speak in complete sentences Assessment & Plan Assessment & Plan (1) Incomplete bladder emptying: Code(s): R33.9 - Retention of urine, unspecified Plan Risks, benefits and alternatives to therapy were discussed. These include but are not limited to infection, bleeding, damage to local organs and tissues, need for further interventions. Anesthetic risks regarding cardiac arrhythmia, blood clots, and potential mortality were discussed. The patient understands the typical recovery time and the outpatient nature of the procedure. After consideration of these risks the patient gives full informed consent and they wish to move ahead with the procedure. - GreenLight laser prostatectomy with suprapubic tube Patient Instructions: Imaging studies, laboratory and physical exam results were discussed and reviewed in detail. No major barriers to patient understanding were identified. An opportunity to ask questions regarding the treatment plan was provided. All questions were answered. The patient expressed understanding and agreement with the above treatment plan. The patient is aware they should contact our office by phone for worsening of their current condition or the appearance of new urologic symptoms. Compliance is encouraged with any medications and followup testing that is ordered. It is a privilege to participate in the urologic care of your patient. If you have any questions or concerns regarding treatment for the above conditions, or other urologic issues, please do not hesitate to contact me. The office telephone contact is [phone]. This note is constructed using voice recognition software. While every effort has been made to ensure accuracy physical laboratory assistant errors may have been included. Yours sincerely, Dr Juan Carlos Sommers MD, [facility] - Urology Providers of Expert, Compassionate Care for the Genitourinary System Telehealth Telehealth Location of provider rendering services: practice address Location of patient: address on file Patient Identification confirmed using: Name, : Yes Telehealth method: voice only Patient verbally consented to treatment: Yes Patient verbally consented to billing insurance company: Yes Patient informed of any privacy concerns related to visit: Yes Coding Level of Care Code Tele Est Pt Level 4 (08881) Diagnoses Incomplete bladder emptying R33.9
== END 2023-05-01 09:42 | disposition home or self-care (01) ==
LOC: HO.HUSH 09:11
PROVIDERS: PCP Family Medicine; Visit Provider Urology
DX: R33.9 Retention of urine, unspecified (principal)
CPT/HCPCS: 99442

== ENCOUNTER → 2023-05-01 09:11 | Outpatient (BNVA) | payer MEDICARE, SELFPAY | PROVIDERS: PCP Family Medicine; Visit Provider Urology ==

== ENCOUNTER 2023-05-07 07:19 | Day surgery (SDC) | payer MEDICARE, SELFPAY ==
[2023-05-03 10:50] VITALS: BMI 27.4
--- NOTE | 2023-05-04 09:54 | P.CONAN_ITS ---
Documented by User: Alondra Mares NP 05/04/23 09:58 HPI - Anesthesia Eval Consult details Narrative: 73yo M for Laser Ablation Prostate w/Green Light, Insertion Suprapubic Tube [place] [facility] [place] for ? HOCM: Asymmetric septal hypertrophy and this is elderly gentleman most likely hypertensive in nature. Unlikely that this represents hypertrophic cardiomyopathy given any lack of EKG abnormality. He has no symptoms related to it. He also has no finding suggestive of obstructive physiology both on clinical exam as well as by echocardiogram. At this point time would continue to pursue medical therapy at this point time. I do not think he requires any further risk stratification. There is no family history of premature sudden cardiac or evidence of hypertrophic cardiomyopathy. He himself has no cardiac symptoms including no symptoms of palpitations or lightheadedness or syncope. No further cardiol f/u needed at this time. [facility] Active Problems Active Problems: All Active Problems (Updated 05/03/23 @ 10:37 by Sandi Lopez RN) Constipation (Acute) Incomplete bladder emptying (Acute) Overflow incontinence (Acute) Asymmetric septal hypertrophy (Acute) Lower extremity edema (Acute) Urinary urgency (Acute) Urinary frequency (Acute) Viral illness (Acute) Heart murmur (Acute) Adult general medical exam (Acute) Screening for prostate cancer (Acute) Screening for colon cancer (Acute) Mild anemia (Acute) Chronic renal failure (Acute) Spondylosis, thoracic (Acute) Lumbar spondylosis (Acute) Back pain (Acute) GERD (gastroesophageal reflux disease) (Acute) Elevated PSA (Acute) Urinary hesitancy (Acute) Erectile dysfunction (Acute) Low vitamin D level (Acute) Hyperlipidemia (Acute) Hypertension (Acute) Laboratory exam ordered as part of routine general medical examination (Acute) Stiffness of finger joint of right hand (Acute) Digital nerve laceration, finger (Acute) Open fracture of proximal phalanx of right little finger (Acute) Open finger fracture (Acute) Fracture of proximal phalanx of finger of right hand (Acute) Hand pain (Acute) Arthritis (Acute) Past Medical History Medical History Cardiomyopathy Heart murmur GERD (gastroesophageal reflux disease) Chronic renal insufficiency Arthritis High cholesterol HTN (hypertension) Family History Family History Father Diabetes Mother No problems noted. Brother CAD (coronary artery disease) Surgical History Surgical History Hx of total knee replacement History of esophagogastroduodenoscopy (EGD) H/O colonoscopy Hx of bilateral cataract extraction History of open reduction and internal fixation (ORIF) procedure Social History Social History Housing: House Patient Tobacco Use Status: Never used Tobacco Tobacco use type: Cigar e-Cigarette/Vaping Use: Never Used Second Hand Smoke Exposure: No Are you DNR?: No Advance Directives: No Advance Directives Information Provided: Yes Recently lost weight without trying: Unsure service: No Current occupational status: employed and 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 Current occupational exposures/hazards: No Cognitive needs: No Hearing needs: No Vision needs: No Meds Allergies Allergy/AdvReac Type Severity Reaction Status Date / Time codeine [From CODITUSSIN AC] Allergy Intermediate VOMITING Verified 05/01/23 09:12 guaifenesin Allergy Intermediate VOMITING Verified 05/01/23 09:12 [From CODITUSSIN AC] lactose [LACTOSE] Allergy Intermediate GI Verified 05/01/23 09:12 UPSET/DIARRHEA Home Medications Medication Instructions Recorded Confirmed Last Taken Type aspirin 81 mg tablet,delayed 81 mg PO DAILY 10/20/22 05/03/23 Unknown History release amlodipine 5 mg tablet 5 mg PO DAILY 12/06/22 05/03/23 05/07/23 History Exam Exam Date and Time: May 04, 2023 0954 Height,Weight and Vital Signs: Height 6 ft 5 in Weight 104.78 kg Pertinent Lab Results Pertinent Lab Results: Laboratory Tests 11/28/22 07:15 Sodium 142 Potassium 4.3 Chloride 109 H Carbon Dioxide 24 BUN 20 H Creatinine 1.67 H Narrative Narrative: NM cardiolite stress test 01/2023 Impression: 1. Normal 2. Gated LVEF is 53% at rest 3. Transient ischemic dilatation not present Stress EKG is borderline positive for ischemia ECHO 11/2022 Conclusions: - The left ventricular systolic function is normal. The calculated ejection fraction is 58% by biplane method. - Mildly increased right ventricular cavity size. - The left atrium is mildly dilated. - There is mild tricuspid valve regurgitation. Assessment and Plan Assessment Anesthesia Assessment: Chart Reviewed Documented by User: Taylor Gallo MD 05/07/23 09:01 [facility] Active Problems Active Problems: All Active Problems (Updated 05/07/23 @ 08:37 by Taylor Gallo MD) Constipation (Acute) Incomplete bladder emptying (Acute) Overflow incontinence (Acute) Asymmetric septal hypertrophy (Acute) Lower extremity edema (Acute) Urinary urgency (Acute) Urinary frequency (Acute) Viral illness (Acute) Heart murmur (Acute) Adult general medical exam (Acute) Screening for prostate cancer (Acute) Screening for colon cancer (Acute) Mild anemia (Acute) Chronic renal insufficiency BUN/Cr 20/1.67 11/28/22 Est GFR 41 Spondylosis, thoracic (Acute) Lumbar spondylosis (Acute) Back pain (Acute) GERD (gastroesophageal reflux disease) (Acute) Elevated PSA (Acute) Urinary hesitancy (Acute) Erectile dysfunction (Acute). Denies use of sildenafil recently Low vitamin D level (Acute) Hyperlipidemia (Acute) Hypertension (Acute) Laboratory exam ordered as part of routine general medical examination (Acute) Stiffness of finger joint of right hand (Acute) Digital nerve laceration, finger (Acute) Open fracture of proximal phalanx of right little finger (Acute) Open finger fracture (Acute) Fracture of proximal phalanx of finger of right hand (Acute) Hand pain (Acute) Arthritis (Acute) Contact with Covid positive people at work but remains asymptomatic Denies EARNEST Past Medical History Medical History Cardiomyopathy Heart murmur GERD (gastroesophageal reflux disease) Chronic renal insufficiency Arthritis High cholesterol HTN (hypertension) Family History Family History Father Diabetes Mother No problems noted. Brother CAD (coronary artery disease) Family history of problems with anesthesia: No Surgical History Surgical History Hx of total knee replacement History of esophagogastroduodenoscopy (EGD) H/O colonoscopy Hx of bilateral cataract extraction History of open reduction and internal fixation (ORIF) procedure History of Problems with Anesthesia: No Social History Social History Housing: House Patient Tobacco Use Status: Never used Tobacco Tobacco use type: Cigar e-Cigarette/Vaping Use: Never Used Second Hand Smoke Exposure: No Are you DNR?: No Advance Directives: No Advance Directives Information Provided: Yes Recently lost weight without trying: Unsure service: No Current occupational status: employed and 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 Current occupational exposures/hazards: No Cognitive needs: No Hearing needs: No Vision needs: No Meds Allergies Allergy/AdvReac Type Severity Reaction Status Date / Time codeine [From CODITUSSIN AC] Allergy Intermediate VOMITING Verified 05/01/23 09:12 guaifenesin Allergy Intermediate VOMITING Verified 05/01/23 09:12 [From CODITUSSIN AC] lactose [LACTOSE] Allergy Intermediate GI Verified 05/01/23 09:12 UPSET/DIARRHEA Home Medications Medication Instructions Recorded Confirmed Last Taken Type aspirin 81 mg tablet,delayed 81 mg PO DAILY 10/20/22 05/03/23 Unknown History release amlodipine 5 mg tablet 5 mg PO DAILY 12/06/22 05/03/23 05/07/23 History Exam Height,Weight and Vital Signs: Height 6 ft 5 in Weight 104.78 kg Vital Signs Temp Pulse Resp BP Pulse Ox O2 Del Method 05/07/23 07:56 97.4 F 63 18 127/65 97 Room Air Airway Mallampati Class: III TM Dist: >3cm Neck ROM: Full Denture: Upper and Lower Heart: RRR Lungs: CTAB Assessment and Plan Assessment Anesthesia Assessment: Anesthesia Plan Discussed Final Anesthetic Review Family History of Problems with Anesthesia: No History of Problems with Anesthesia: No NPO: Yes ASA Class: III Final Preanesthetic Review: No Changes in Pt Med Stat, Meds/Allgs Chart Reviewed, Consent Obtained/Reviewed and Anes Risks/Benef Reviewed Patient Risk: Intermediate Procedure Risk: Low Assessment/Block/Sedation in SS: Assess/Block/Sedation-SS Anesthetic Plan Anesthetic Plan: GA Disposition: Standard PACU
[2023-05-07 07:56] VITALS: BP 127/65; PULSE 63; RESP 18; TEMP 36.3; O2SAT 97; BMI 27.9
[2023-05-07 07:59] VITALS: BMI 27.9
--- NOTE | 2023-05-07 09:16 | MHC.SHP ---
Pre-Procedural Eval Section A Date of Service: 05/07/23 The patient is an INPATIENT: No Changes since office visit: No Cold of Flu in the past 2 weeks, No New Medical Problems, No Changes in Medication and No Patient answered all questions The History & Physical has been completed within 30 days and I have reviewed it.: Yes Section B Chief Complaint: Retention of urine, unspecified Details of Present Illness: Urinary?retention?with?catheter?failure Relevant Social History: None Present Medications: see Short Stay Collaborative assessment Medical History: No relevant PMH History of Previous Operations: No relevant previous surgery Allergies: Allergies Allergy/AdvReac Type Severity Reaction Status Date / Time codeine [From CODITUSSIN AC] Allergy Intermediate VOMITING Verified 05/01/23 09:12 guaifenesin Allergy Intermediate VOMITING Verified 05/01/23 09:12 [From CODITUSSIN AC] lactose [LACTOSE] Allergy Intermediate GI Verified 05/01/23 09:12 UPSET/DIARRHEA Review of Systems Sugical H&P ROS: Negative: Constitution, Cardiovascular, Respiratory, Neurological, Psychiatric, Hem-Onc, Allergic/Immunologic, Gastrointestinal, Genitourinary, Musculoskeletal, Integumentary, Endocrine and Eyes/Ears/Nose/Throat Exam Surgical H&P Exam: Normal: HEENT, Normal: Heart, Normal: Lungs, Normal: Extremities, Normal: Abdomen, Normal: Skin and Normal: Neurological Plan Diagnosis/Plan: Unchanged (Cystoscopy,?suprapubic?tube,?laser?prostate) I have reviewed the history and physical and performed a pertinent physical examination on my patient. No changes have occurred unless specified. Time Spent With Patient Time: Total time managing care of this patient today ____ minutes.
[2023-05-07 10:39] VITALS: BP 102/51; PULSE 64; RESP 16; TEMP 36.3; O2SAT 96
--- NOTE | 2023-05-07 10:43 | W.PM.OPN ---
Operative Note Operative Note Date of Service: 05/07/23 Narrative: PreOperative Diagnosis: Bladder outlet obstruction?with?urinary?retention Post Operative Diagnosis: Bladder outlet obstruction?with?urinary?retention Procedure: GreenLight Laser Enucleation of the prostate, suprapubic?tube?placement Surgeon: Dr Juan Carlos Sommers Anesthesia: General History of bladder outlet obstruction. Treated with alpha-jamar and other medications. Still with symptoms. On cystoscopy in office has tight bladder neck. Recommendation for prostate procedure with laser enucleation of prostate. Risks and benefits have been discussed. Focus was placed on development of retrograde ejaculation which is a normal part of this procedure. Procedure: After informed consent was verified the patient was brought to the operating room and placed in a supine position. Anesthesia was administered per protocol. Patient was placed in modified dorsal lithotomy position and prepped and draped in a sterile fashion. Safety pause time-out was confirmed. Antibiotics have been given. A Twenty-four Mozambican laser cystoscope was inserted per urethra. No abnormalities were found of the anterior and bulbar urethra. The bladder was examined and both ureteric orifices were seen in their normal positions away from the area of interest. Grade?3?trabeculation?with?large?capacity?and?difficulty?emptying?with?retained?urine Decision?made?to?place?a?suprapubic?tube?prior?to?GreenLight?laser?prostatectomy. Local?anesthetic?infiltrated?proximally?2?fingerbreadths?superior?to?the?symphysis?pubis?in?the?midline.??Spinal?needle?used?as?Finder and?inserted?into?the?bladder.??Spinal?needle?was?seen?entering?the?bladder?under?cystoscopy.??Spinal?needle?removed. Under?direct?visualization?a?1?cm?vertical?incision?made?in?the?midline.??Trocar?placed?into?the?bladder.?? Sixteen?Mozambican?Guevara?catheter?placed?into?trocar?and?inflated. Using a GreenLight laser with settings of 80 w incisions were made at the 5 and 7 o'clock position. The incisions were taken down from the bladder neck down to the level of the veru. These were gradually deepened in order to define the lateral aspects of the median lobe area. Once clearly defined they will also extended in the lateral directions in order to create a deep groove. The median lobe was then ablated and enucleated tissue released into the bladder with the laser power increased to 120 W. Once the median lobe area had been cleared attention was directed to the lateral lobes. Starting with the patient's left lateral lobe. First the 05:00 o'clock groove was further developed. This was moved in the lateral direction to undermine the tissue on the lateral side running from the bladder neck to the prostate apex. Focus was then placed on the laser at the 1 o'clock position to developing a secondary groove down to the level of bladder fibers. The creation of a second deep groove defined a segment of intervening tissue similar to a slice of orange. At the apex of the prostate the 2 grooves were linked the us releasing the intervening tissue. This tissue was then removed with a combination of enucleation and ablation working from the apex toward the bladder neck. A similar procedure was repeated on the patient's right-hand side. The only differences being the position of the lateral groove at he 7 'oclock positioin and the secondary groove at the 11 o'clock position, Otherwise the procedure was developed in a mirror fashion. After the majority of tissue had been debulked remnant tissue was ablated with the side fire laser and the curve of the prostate followed up each side wall clearly defining the anterior remnant strip that remained between the 11 and 1 o'clock positions. When this was had been completed debris and pieces of prostate were removed from the bladder with irrigation. Both ureteric orifices were reviewed again in shown to be patent in away from any areas of energy damage. The apical area was reviewed in any stray ooze was controlled. A 22 Mozambican 30 cc balloon Guevara catheter was placed over a stylet into the bladder. Clear efflux was obtained upopn irrigation with a Antonio piston syringe. 30 cc was placed in the balloon and gentle traction was placed. A snap was used to hold tension on the catheter to control bleeding during patient moved and transported. A drainage bag was placed. Once transportation is complete to the PACU the snap will be removed. The patient tolerated the procedure well, he was extubated in the operating and transferred in a stable condition to the recovery area. Total Power 81 kW Lasing time 16:57 Pathology: Prostate tissue Drains: Guevara catheter
[2023-05-07 10:44] VITALS: BP 108/39; PULSE 61; RESP 16; O2SAT 97
[2023-05-07 10:49] VITALS: BP 114/48; PULSE 61; RESP 16; O2SAT 99
[2023-05-07] MEDS: Acetaminophen 325 MG TABLET 975 MG PO (10:53)
[2023-05-07 10:54] VITALS: BP 110/49; PULSE 60; RESP 16; O2SAT 98
[2023-05-07 11:09] VITALS: BP 108/49; PULSE 62; RESP 16; TEMP 36.3; O2SAT 99
== END 2023-05-07 12:29 | disposition home or self-care (01) ==
PROVIDERS: PCP Family Medicine; Visit Provider Urology
PROC: (CPT 52648; principal; 2023-05-07 09:10)
PROC: (CPT 51102; 2023-05-07 09:10)
DX: R33.9 Retention of urine, unspecified (principal); I12.9 Hypertensive chronic kidney disease with stage 1 through stage 4 chronic kidney disease, or unspecified chronic kidney disease; N18.9 Chronic kidney disease, unspecified; D64.9 Anemia, unspecified; R97.20 Elevated prostate specific antigen [PSA]; E78.00 Pure hypercholesterolemia, unspecified; K21.9 Gastro-esophageal reflux disease without esophagitis; N52.9 Male erectile dysfunction, unspecified; F17.200 Nicotine dependence, unspecified, uncomplicated; Z79.82 Long term (current) use of aspirin; Z79.899 Other long term (current) drug therapy
CPT/HCPCS: 52649; 51102; J1956; J2795; J3010

== ENCOUNTER → 2023-05-07 07:19 | Outpatient (BNV) | payer MEDICARE, SELFPAY | PROVIDERS: PCP Family Medicine; Visit Provider Urology | DX: N32.0 Bladder-neck obstruction (principal); R33.9 Retention of urine, unspecified | CPT/HCPCS: 51102; 52649 ==

== ENCOUNTER → 2023-05-10 08:57 | Outpatient (BNVA) | payer MEDICARE, SELFPAY | PROVIDERS: PCP Family Medicine; Visit Provider Urology | DX: R33.9 Retention of urine, unspecified (principal) | CPT/HCPCS: 51700 ==

== ENCOUNTER 2023-06-07 11:17 | Outpatient (AMB) | payer MEDICARE, SELFPAY ==
--- NOTE | 2023-06-07 11:41 | MHC.OFFVIS ---
Intake Intake Visit Reasons: first sp tube change Intake Note: Patient is present for SP Tube Change Urology Medications: sildenafil, terazosin Blood Thinner: none Loan Auditor Required: No Accompanied by: Self / Same As Patient Allergies codeine [From CODITUSSIN AC] Allergy (Intermediate, Verified 06/14/23 15:52) VOMITING guaifenesin [From CODITUSSIN AC] Allergy (Intermediate, Verified 06/14/23 15:52) VOMITING lactose [LACTOSE] Allergy (Intermediate, Verified 06/14/23 15:52) GI UPSET/DIARRHEA HPI HPI Comments History of Present Illness Details Drew is a pleasant male. He is a patient Dr. Casiano. He seen for the following urologic conditions - neurogenic bladder - elevated PSA - erectile dysfunction Helpful suprapubic tube placement Undergoing GreenLight laser prostatectomy Has tolerated procedure postop Using clean technique catheter upsized to 18 Greenlandic Understands that suprapubic tube may be removed if bladder function recovery Neurogenic bladder On initial assessment found to have large postvoid residual of over 1000 cc PSA 11/26 5.1 Creatinine 1.7 Instructed on clean intermittent catheterization Medical therapy finasteride, terazosin Imaging - 11/26 renal bladder ultrasound 80 g prostate GreenLight laser prostatectomy and suprapubic tube placement PFSH Medical History Cardiomyopathy Heart murmur GERD (gastroesophageal reflux disease) Chronic renal insufficiency Arthritis High cholesterol HTN (hypertension) Surgical History Hx of total knee replacement History of esophagogastroduodenoscopy (EGD) H/O colonoscopy Hx of bilateral cataract extraction History of open reduction and internal fixation (ORIF) procedure Family History Father Diabetes Mother No problems noted. 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 Current occupational exposures/hazards: No Cognitive needs: No Hearing needs: No Vision needs: No Review of Systems Const Denies chills and Denies fever(s) Card Reports no additional complaints and Denies syncope Resp Denies cough GI Denies abdominal pain and Denies heartburn Reports as per HPI and Denies change in libido Neuro Denies syncope Psych Denies change in libido Endo Denies change in libido Physical Exam Const General: cooperative, healthy appearing, comfortable and no acute distress Orientation/consciousness: patient oriented x3 HEENT Face and sinus: Yes normal facial exam Mouth: moist mucous membranes Neck Neck: Yes normal visual inspection, Yes full ROM and Yes trachea midline Chest Chest palpation & inspection: normal inspection of the chest Resp Effort & Inspection: normal respiratory effort, able to speak in complete sentences and no respiratory distress GI Inspection: Yes normal to inspection Back/Spine/Pelvis Cervical Spine: normal cervical lordosis Thoracic/Lumbar Spine: thoracic and lumbar spine normal to inspection Skin General skin exam: no rashes or lesions noted Neuro General: patient oriented x3, gait normal, tone normal and moves all extremities Extrem General: Yes normal to inspection and Yes capillary refill normal Office Procedures Bladder/Catheter Procedure Details: Sixteen Greenlandic Guevara catheter removed Eighteen Greenlandic placed with clean technique suprapubic tube 31687-[id number] of bladder tube Procedure code (CPT) selection complete Assessment & Plan Assessment & Plan (1) Incomplete bladder emptying: Code(s): R33.9 - Retention of urine, unspecified (2) Overflow incontinence: Code(s): N39.490 - Overflow incontinence Plan One month follow-up Patient Instructions: Imaging studies, laboratory and physical exam results were discussed and reviewed in detail. No major barriers to patient understanding were identified. An opportunity to ask questions regarding the treatment plan was provided. All questions were answered. The patient expressed understanding and agreement with the above treatment plan. The patient is aware they should contact our office by phone for worsening of their current condition or the appearance of new urologic symptoms. Compliance is encouraged with any medications and followup testing that is ordered. It is a privilege to participate in the urologic care of your patient. If you have any questions or concerns regarding treatment for the above conditions, or other urologic issues, please do not hesitate to contact me. The office telephone contact is [phone]. This note is constructed using voice recognition software. While every effort has been made to ensure accuracy instructor decorating errors may have been included. Yours sincerely, Dr Juan Carlos Sommers MD, [facility] - Urology Providers of Expert, Compassionate Care for the Genitourinary System Coding Level of Care Code Est Pt Level 3 (40295) Diagnoses Incomplete bladder emptying R33.9 Overflow incontinence N39.490 CPT Codes Bladder/Catheter Procedure - CPT: 97648-Ppeatt of bladder tube ([id number])
== END 2023-06-07 12:02 | disposition home or self-care (01) ==
PROVIDERS: PCP Family Medicine; Visit Provider Urology
DX: R33.9 Retention of urine, unspecified (principal); N39.490 Overflow incontinence
CPT/HCPCS: 51705; 99024

== ENCOUNTER → 2023-06-07 11:17 | Outpatient (BNVA) | payer MEDICARE, SELFPAY | PROVIDERS: PCP Family Medicine; Visit Provider Urology ==

== ENCOUNTER 2023-06-07 11:59 | Outpatient (REF) | payer MEDICARE, SELFPAY ==
[2023-06-07 13:32] LABS: Basophils Percent Auto 0.7 % (0-2); Eosinophils Absolute Auto 0.3 X10*3/uL (0.0-0.4); Eosinophils Percent Auto 5.2 % (0-4); Hematocrit 27.8 % (42.0-52.0); Hemoglobin 8.6 g/dl (14.0-18.0); Imm Gran Abs Auto 0.01 X10*3/uL (0.00-0.03); Imm Gran Pct Auto 0.2 % (0.0-0.4); Lymphocytes Absolute Auto 1.5 X10*3/uL (1.2-4.9); Lymphocytes Percent Auto 27.1 % (20-40); MANUAL DIFF FLAG SCAN; Mean Corpuscular HGB Conc 30.9 g/dl (31.0-36.0); Mean Corpuscular Hemoglobin 23.6 pg (27.0-33.0); Mean Corpuscular Volume 76.2 fL (80.0-98.0); Mean Platelet Volume 11.3 fL (9.4-12.4); Monocytes Absolute Auto 1.2 X10*3/uL (0.1-1.2); Monocytes Percent Auto 20.8 % (2-11); Neutrophils Absolute Auto 2.6 x10*3/uL (2.0-8.3); Platelet Count 233 X10*3/uL (160-400); Red Blood Count 3.65 X10*6/uL (4.60-5.80); Red Cell Distribution Width 16.1 % (11.0-16.0); SCAN SMEAR FLAG 1; White Blood Count 5.6 X10*3/uL (4.8-10.8)
[2023-06-07 13:46] LABS: Alanine Aminotransferase 16 U/L (0-40); Albumin Level 4.2 g/dL (3.5-5.0); Alkaline Phosphatase 82 U/L (39-117); Anion Gap 8 (12-20); Aspartate Amino Transferase 19 U/L (5-37); Bilirubin Total 0.4 mg/dL (0.0-1.0); Blood Urea Nitrogen 20 mg/dL (9-16); Calcium 9.3 mg/dL (8.4-10.2); Carbon Dioxide 25 mmol/L (22-29); Chloride 110 mmol/L (96-108); Estimated Glomerular Filt Rate 42; Glucose Random 111 mg/dL (60-115); Potassium 4.4 mmol/L (3.3-5.1); Sodium 139 mmol/L (135-145); Total Protein 7.3 g/dL (6.5-8.0)
[2023-06-07 14:11] LABS: Creatinine Urine 87.02 mg/dL; Microalbum/Creatinine Ratio Ur 101.1 ug/mg cr (<30)
[2023-06-07 14:19] LABS: SLIDE REVIEW VERIFIED
== END 2023-06-07 12:00 | disposition home or self-care (01) ==
LOC: HO.10HDL 11:59
PROVIDERS: Visit Provider Family Medicine
DX: Z00.00 Encounter for general adult medical examination without abnormal findings (principal); D64.9 Anemia, unspecified; I12.9 Hypertensive chronic kidney disease with stage 1 through stage 4 chronic kidney disease, or unspecified chronic kidney disease; N18.9 Chronic kidney disease, unspecified; Z43.5 Encounter for attention to cystostomy; N31.9 Neuromuscular dysfunction of bladder, unspecified; R33.9 Retention of urine, unspecified; N39.490 Overflow incontinence
CPT/HCPCS: 36415; 51705; 80053; 82043; 82570; 85025; 99212

== ENCOUNTER 2023-06-14 15:38 | Outpatient (AMB) | payer MEDICARE, SELFPAY ==
--- NOTE | 2023-06-14 15:50 | A.OFFPC_ITS ---
Vital Signs 06/14/23 15:56 Height 6 ft 5 in Weight 236 lb BMI 28.0 BP 126/72 Blood Pressure Location Lt brachial Position Sitting Pulse 59 Pulse Source Pulse Oximeter Pulse Oximetry (%) 99 Oxygen Delivery Method Room Air Intake Visit Reasons: f/u HTN Intake Note: Patient is here to follow up on hypertension. Allergies codeine [From CODITUSSIN AC] Allergy (Intermediate, Verified 06/14/23 15:52) VOMITING guaifenesin [From CODITUSSIN AC] Allergy (Intermediate, Verified 06/14/23 15:52) VOMITING lactose [LACTOSE] Allergy (Intermediate, Verified 06/14/23 15:52) GI UPSET/DIARRHEA Tobacco use date assessed: 06/14/23 Fall risk assessment: No Falls in past year Last assessed Fall Risk: 06/14/23 HPI f/u HTN HPI Details 73 y/o male presents to f/u hypertension and CRF. Blood pressure today 126/72. He is on valsartan 80mg, amlodipine 5mg and metoprolol 200mg daily. Labs were drawn 06/07/23. Reviewed labs with pt. Anemia. Creatinine level mildly improved from 1.67 to 1.61. Pt reports L big toe pain. PFSH Medical History Cardiomyopathy Heart murmur GERD (gastroesophageal reflux disease) Chronic renal insufficiency Arthritis High cholesterol HTN (hypertension) Surgical History Hx of total knee replacement History of esophagogastroduodenoscopy (EGD) H/O colonoscopy Hx of bilateral cataract extraction History of open reduction and internal fixation (ORIF) procedure Family History Father Diabetes Mother No problems noted. 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 Yony Mora, Mariaelena Olguin, Anirudh Ferguson and colleagues, with an educational dieter from [employer]. Review of Systems Const Denies chills, Denies fatigue, Denies fever(s), Denies headache(s) and Denies weakness ENT Denies dizziness and Denies headache(s) Card Denies dyspnea Resp Denies cough, Denies dyspnea, Denies wheezing and Denies other (shortness of breath) Musc Denies numbness and Denies tingling Neuro Denies dizziness, Denies headache(s), Denies numbness, Denies tingling and Denies weakness Psych Denies anxiety and Denies depression Endo Denies fatigue Aller/Immun Denies wheezing Physical exam (Primary Care) Vital Signs: Last Vital Signs Pulse 59 06/14/23 15:56 BP 126/72 06/14/23 15:56 Pulse Ox 99 06/14/23 15:56 Oxygen Delivery Method Room Air 06/14/23 15:56 BMI result Body Mass Index 28.0 Tobacco/Smoking Status: Tobacco use Status Tobacco use date assessed 06/14/23 06/14/23 15:58 Patient Tobacco Use Status Never used Tobacco 06/14/23 15:58 Tobacco use type Cigar 06/14/23 15:58 e-Cigarette/Vaping Use Never Used 06/14/23 15:58 Thrive Assessment: Date of Thrive Assessment Date Thrive assessed 08/18/22 06/14/23 15:58 Const General: well developed; No acute distress Nutritional Appearance: well nourished Orientation/consciousness: patient oriented x3 HENMT Head: Yes normocephalic and Yes atraumatic Eyes General: appearance normal, both eyes and all related structures Pupils: Equal, round and reactive pupils present EOM: EOMs intact bilaterally Resp Effort & Inspection: normal respiratory effort Auscultation: clear to auscultation bilaterally Cardio Rate: regular rate Rhythm: regular rhythm Heart sounds: S1 normal heart sound present, S2 normal heart sound present, no gallops, no murmurs and no rubs Neuro General: patient oriented x3 and gait normal Cranial nerves: Yes Equal, round and reactive pupils present Psych Affect: normal affect Assessment and Plan Assessment & Plan (1) Hypertension: Code(s): I10 - Essential (primary) hypertension Plan: Sugars?well?controlled.??However?he?is?using?valsartan?80?mg?daily?and?has?impai red?renal?function Will?decrease?valsartan?from?80?mg?daily?to?40?mg?daily?and?concomitantly?increa se?amlodipine?from?5?mg?daily?to?10?mg?daily Continue?metoprolol (2) Chronic renal failure: Code(s): N18.9 - Chronic kidney disease, unspecified Plan: Mild?chronic?renal?failure?and?has?seen?Nephrology.??Also? followed?by?Urology?for?obstruction?with?cystostomy tube?for?improved?drainage?though?after?a?TURP?he?is?now?urinating?rather?well.? ?He?is?also?on?tamsulosin?for?this. Nevertheless,?after?over?a?month ,?his?creatinine?has?only?dropped?from?1?down?to?1.61. I?am?reducing?his?valsartan?as?described?above Will?get?him?back?in?2?months?to?follow-up. He?will?be?seeing?Nephrology?and?will?follow-up?by?their?labs. (3) Toe pain, left: Code(s): M79.675 - Pain in left toe(s) Plan: Ingrown?nail. Will?refer?to?Podiatry Orders: Referrals Podiatry Referral M79.675 - Pain in left toe(s) Medications: Changed From amlodipine 10 mg PO DAILY To amlodipine 10 mg PO DAILY 30 tabs 1RF 30 days From valsartan 80 mg PO DAILY 90 tabs 2RF 90 days To valsartan 40 mg PO DAILY 30 tabs 2RF 30 days Coding Level of Care Code Est Pt Level 4 (19809) Diagnoses Hypertension I10 Chronic renal failure N18.9 Toe pain, left M79.675
[2023-06-14 15:56] VITALS: BP 126/72; PULSE 59; O2SAT 99; BMI 28.0
== END 2023-06-14 16:40 | disposition home or self-care (01) ==
PROVIDERS: PCP Family Medicine; Visit Provider Family Medicine
DX: I12.9 Hypertensive chronic kidney disease with stage 1 through stage 4 chronic kidney disease, or unspecified chronic kidney disease (principal); N18.9 Chronic kidney disease, unspecified; M79.675 Pain in left toe(s)
CPT/HCPCS: 99214

== ENCOUNTER → 2023-07-04 13:19 | Outpatient (BNVA) | payer MEDICARE, SELFPAY | PROVIDERS: PCP Family Medicine; Visit Provider Urology ==

== ENCOUNTER → 2023-07-17 14:18 | Outpatient (BNVA) | payer MEDICARE, SELFPAY | PROVIDERS: PCP Family Medicine; Visit Provider Urology | DX: R33.9 Retention of urine, unspecified (principal) | CPT/HCPCS: 51798 ==

== ENCOUNTER 2023-07-26 11:40 | Outpatient (REF) | payer MEDICARE, SELFPAY ==
[2023-07-26 14:33] LABS: Basophils Percent Auto 1.1 % (0-2); Eosinophils Absolute Auto 0.3 X10*3/uL (0.0-0.4); Eosinophils Percent Auto 8.4 % (0-4); Hematocrit 26.5 % (42.0-52.0); Hemoglobin 8.2 g/dl (14.0-18.0); Lymphocytes Absolute Auto 1.2 X10*3/uL (1.2-4.9); Lymphocytes Percent Auto 32.4 % (20-40); MANUAL DIFF FLAG SCAN; Mean Corpuscular HGB Conc 30.9 g/dl (31.0-36.0); Mean Corpuscular Hemoglobin 22.5 pg (27.0-33.0); Mean Corpuscular Volume 72.8 fL (80.0-98.0); Mean Platelet Volume 10.8 fL (9.4-12.4); Monocytes Percent Auto 26.1 % (2-11); Neutrophils Absolute Auto 1.2 x10*3/uL (2.0-8.3); Platelet Count 210 X10*3/uL (160-400); Red Blood Count 3.64 X10*6/uL (4.60-5.80); Red Cell Distribution Width 17.9 % (11.0-16.0); SCAN SMEAR FLAG 1; White Blood Count 3.8 X10*3/uL (4.8-10.8)
[2023-07-26 14:46] LABS: Anion Gap 13 (12-20); Blood Urea Nitrogen 23 mg/dL (9-16); Calcium 9.1 mg/dL (8.4-10.2); Carbon Dioxide 22 mmol/L (22-29); Chloride 108 mmol/L (96-108); Estimated Glomerular Filt Rate 37; Glucose Random 116 mg/dL (60-115); Potassium 4.6 mmol/L (3.3-5.1); Sodium 138 mmol/L (135-145)
[2023-07-26 14:53] LABS: SLIDE REVIEW VERIFIED
== END 2023-07-26 11:41 | disposition home or self-care (01) ==
LOC: HO.WFDLDS 11:40
PROVIDERS: Visit Provider Family Medicine
DX: Z00.00 Encounter for general adult medical examination without abnormal findings (principal)
CPT/HCPCS: 36415; 80048; 85025

== ENCOUNTER 2023-08-16 14:28 | Outpatient (AMB) | payer MEDICARE, SELFPAY ==
[2023-08-16 14:51] VITALS: BP 120/72; PULSE 68; O2SAT 100; BMI 28.3
--- NOTE | 2023-08-16 14:51 | A.OFFPC_ITS ---
Vital Signs 08/16/23 14:51 Height 6 ft 5 in Weight 239 lb BMI 28.3 BP 120/72 Blood Pressure Location Lt brachial Position Sitting Pulse 68 Pulse Source Pulse Oximeter Pulse Oximetry (%) 100 Oxygen Delivery Method Room Air Intake Visit Reasons: f/u HTN Intake Note: Patient is here to follow up on hypertension. Allergies codeine [From CODITUSSIN AC] Allergy (Intermediate, Verified 08/16/23 14:56) VOMITING guaifenesin [From CODITUSSIN AC] Allergy (Intermediate, Verified 08/16/23 14:56) VOMITING lactose [LACTOSE] Allergy (Intermediate, Verified 08/16/23 14:56) GI UPSET/DIARRHEA Tobacco use date assessed: 08/16/23 Fall risk assessment: No Falls in past year Last assessed Fall Risk: 08/16/23 HPI f/u HTN HPI Details 73 y/o male presents to f/u hypertension and renal failure. Also f/u anemia. Blood pressure today 120/72. He is on valsartan 80mg, amlodipine 5mg and metoprolol 200mg daily. Labs were drawn 07/26/23. Reviewed labs with pt. Ongoing mild anemia. Creatinine level worsened from 1.61 to 1.83. [facility] Medical History Cardiomyopathy Heart murmur GERD (gastroesophageal reflux disease) Chronic renal insufficiency Arthritis High cholesterol HTN (hypertension) Surgical History Hx of total knee replacement History of esophagogastroduodenoscopy (EGD) H/O colonoscopy Hx of bilateral cataract extraction History of open reduction and internal fixation (ORIF) procedure Family History Father Diabetes Mother No problems noted. 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 Yony Mora, Mariaelena Olguin, Anirudh Ferguson and colleagues, with an educational dieter from [employer]. Review of Systems Const Denies chills, Denies fatigue, Denies fever(s), Denies headache(s) and Denies weakness ENT Denies dizziness and Denies headache(s) Card Denies dyspnea Resp Denies cough, Denies dyspnea, Denies wheezing and Denies other (shortness of breath) Musc Denies numbness and Denies tingling Skin/Breast Reports rash Neuro Denies dizziness, Denies headache(s), Denies numbness, Denies tingling and Denies weakness Psych Denies anxiety and Denies depression Endo Denies fatigue Aller/Immun Denies wheezing Physical exam (Primary Care) Vital Signs: Last Vital Signs Pulse 68 08/16/23 14:51 BP 120/72 08/16/23 14:51 Pulse Ox 100 08/16/23 14:51 Oxygen Delivery Method Room Air 08/16/23 14:51 BMI result Body Mass Index 28.3 Tobacco/Smoking Status: Tobacco use Status Tobacco use date assessed 08/16/23 08/16/23 14:58 Patient Tobacco Use Status Never used Tobacco 08/16/23 14:53 Tobacco use type Cigar 08/16/23 14:53 e-Cigarette/Vaping Use Never Used 08/16/23 14:53 Thrive Assessment: Date of Thrive Assessment Date Thrive assessed 08/18/22 08/16/23 14:53 Const General: well developed; No acute distress Nutritional Appearance: well nourished Orientation/consciousness: patient oriented x3 [facility] Head: Yes normocephalic and Yes atraumatic Eyes General: appearance normal, both eyes and all related structures Pupils: Equal, round and reactive pupils present EOM: EOMs intact bilaterally Resp Effort & Inspection: normal respiratory effort Neuro General: patient oriented x3 and gait normal Cranial nerves: Yes Equal, round and reactive pupils present Psych Affect: normal affect Assessment and Plan Assessment & Plan (1) Hypertension: Code(s): I10 - Essential (primary) hypertension Plan: Had?decreased?valsartan?and?added?amlodipine?due?to?rising?creatinine?level. Blood?pressure?remains?well?controlled (2) Chronic renal failure: Code(s): N18.9 - Chronic kidney disease, unspecified Plan: As?above,?had?decreased?valsartan?but?creatinine?level?has?continue?to?rise. More?recently?he?has?had?catheter?removed?and?is?urinating?well. Will?recheck?creatinine?level?at?next?lab?draw Follow-up?with?nephrology?as?recommended If?creatinine?continues?to?rise,?would?further?reduce?valsartan. Nephrology?feels?that?his?chronic?kidney?disease?is?secondary?to?hypertensive?ne phrosclerosis?but?that?acute?renal?injury?is?due?to?hypoperfusion. Could?consider?some?hydralazine?to?maintain?good?blood?pressure?control?while?im proving?renal?perfusion.??Mentioned?this?with?patient?today. (3) Constipation: Code(s): K59.00 - Constipation, unspecified Plan: Increase?hydration (4) Anemia: Code(s): D64.9 - Anemia, unspecified Plan: Ongoing?anemia. This?is?a?microcytic?anemia?and?anemia?secondary?to?chronic?kidney?disease. He?will?try?iron?every?other?day.??Repeating?CBC?and?anemia?labs?with?his?next?b lood?draw (5) Rash: Code(s): R21 - Rash and other nonspecific skin eruption Plan: Likely?eczema He?can?use?hydrocortisone?when?it?flares?up?and?he?should?be?using?a?moisturizin g?cream?frequently?throughout?his?day Orders: Orders Complete Blood Count Auto Diff Today D64.9 - Anemia, unspecified, Z00.00 - Encounter for general adult medical examination without abnormal findings IRON PROFILE Today D64.9 - Anemia, unspecified Reticulocyte Count Today D64.9 - Anemia, unspecified Vitamin B12 and Folate Today D64.9 - Anemia, unspecified, E53.8 - Deficiency of other specified B group vitamins Comprehensive Met. Panel Today N18.9 - Chronic kidney disease, unspecified Medications: New ferrous sulfate 325 mg PO Q OTHER DAY 30 days 15 tabs 2RF Coding Level of Care Code Est Pt Level 4 (28583) Diagnoses Hypertension I10 Chronic renal failure N18.9 Constipation K59.00 Anemia D64.9 Rash R21
== END 2023-08-16 15:27 | disposition home or self-care (01) ==
PROVIDERS: PCP Family Medicine; Visit Provider Family Medicine
DX: I12.9 Hypertensive chronic kidney disease with stage 1 through stage 4 chronic kidney disease, or unspecified chronic kidney disease (principal); N18.9 Chronic kidney disease, unspecified; K59.00 Constipation, unspecified; D64.9 Anemia, unspecified; R21 Rash and other nonspecific skin eruption
CPT/HCPCS: 99214

== ENCOUNTER 2023-08-28 13:14 | Outpatient (AMB) | payer MEDICARE, SELFPAY ==
--- NOTE | 2023-08-28 13:32 | A.OFFVIS_ITS ---
Intake Intake Visit Reasons: 6w/PVR Intake Note: Patient is Present for Follow Up PVR Urology Medication: Terazosin, Finasteride, Sildenafil Antibiotic Allergies: None Blood Thinners: Aspirin PVR: 362 Allergies codeine [From CODITUSSIN AC] Allergy (Intermediate, Verified 08/28/23 13:34) VOMITING guaifenesin [From CODITUSSIN AC] Allergy (Intermediate, Verified 08/28/23 13:34) VOMITING lactose [LACTOSE] Allergy (Intermediate, Verified 08/28/23 13:34) GI UPSET/DIARRHEA Medication List - Last Reconciled 08/28/23 by Juan Carlos Sommers MD amlodipine 10 mg PO DAILY 30 days aspirin 81 mg PO DAILY atorvastatin 40 mg PO DAILY 90 days blood pressure monitor Automatic, Digital. Dx: I10. Daily As directed, 999 days/lifetime cholecalciferol (vitamin D3) 50 mcg PO DAILY 30 days ferrous sulfate 325 mg PO Q OTHER DAY 30 days finasteride 5 mg PO DAILY 90 days metoprolol succinate ER 200 mg PO DAILY 90 days omeprazole 40 mg PO QAM 90 days sildenafil 100 mg PO DAILY PRN 30 days terazosin 5 mg PO BEDTIME 90 days tramadol 50 mg PO DAILY PRN 28 days valsartan 40 mg PO DAILY 30 days HPI HPI Comments History of Present Illness Details Drew is a pleasant male. He is a patient Dr. Casiano. He seen for the following urologic conditions - neurogenic bladder - elevated PSA - erectile dysfunction Current PVR 362 Doing well following procedure Suprapubic tube out Continuing with medical therapy Follow-up 6 months with PSA and PVR Neurogenic bladder On initial assessment found to have large postvoid residual of over 1000 cc PSA 11/26 5.1 Creatinine 1.7 Medical therapy finasteride, terazosin Imaging - 11/26 renal bladder ultrasound 80 g pro state GreenLight laser prostatectomy and suprapubic tube placement 05/28 [facility] Medical History Cardiomyopathy Heart murmur GERD (gastroesophageal reflux disease) Chronic renal insufficiency Arthritis High cholesterol HTN (hypertension) Surgical History Hx of total knee replacement History of esophagogastroduodenoscopy (EGD) H/O colonoscopy Hx of bilateral cataract extraction History of open reduction and internal fixation (ORIF) procedure Family History Father Diabetes Mother No problems noted. 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 Current occupational exposures/hazards: No Cognitive needs: No Hearing needs: No Vision needs: No Review of Systems Const Denies chills and Denies fever(s) Card Reports no additional complaints and Denies syncope Resp Denies cough GI Denies abdominal pain and Denies heartburn Reports as per HPI and Denies change in libido Neuro Denies syncope Psych Denies change in libido Endo Denies change in libido Physical Exam Const General: cooperative, healthy appearing, comfortable and no acute distress Orientation/consciousness: patient oriented x3 HEENT Face and sinus: Yes normal facial exam Mouth: moist mucous membranes Neck Neck: Yes normal visual inspection, Yes full ROM and Yes trachea midline Chest Chest palpation & inspection: normal inspection of the chest Resp Effort & Inspection: normal respiratory effort, able to speak in complete sentences and no respiratory distress GI Inspection: Yes normal to inspection Back/Spine/Pelvis Cervical Spine: normal cervical lordosis Thoracic/Lumbar Spine: thoracic and lumbar spine normal to inspection Skin General skin exam: no rashes or lesions noted Neuro General: patient oriented x3, gait normal, tone normal and moves all extremities Extrem General: Yes normal to inspection and Yes capillary refill normal Office Procedures Post Void Residual Post Residual Void Post Void Residual (PVR): 362 [id number] Void Residual by ultrasound Assessment & Plan Assessment & Plan (1) Incomplete bladder emptying: Code(s): R33.9 - Retention of urine, unspecified (2) Elevated PSA: Code(s): R97.20 - Elevated prostate specific antigen [PSA] Plan Six month follow-up PSA and PVR Orders: Orders AMB Post Void Residual by ultrasound Today R33.9 - Retention of urine, unspecified Prostate Specific Antigen 6 Months R97.20 - Elevated prostate specific antigen [PSA] Patient Instructions: Imaging studies, laboratory and physical exam results were discussed and reviewed in detail. No major barriers to patient understanding were identified. An opportunity to ask questions regarding the treatment plan was provided. All questions were answered. The patient expressed understanding and agreement with the above treatment plan. The patient is aware they should contact our office by phone for worsening of their current condition or the appearance of new urologic symptoms. Compliance is encouraged with any medications and followup testing that is ordered. It is a privilege to participate in the urologic care of your patient. If you have any questions or concerns regarding treatment for the above conditions, or other urologic issues, please do not hesitate to contact me. The office telep bennett contact is [phone]. This note is constructed using voice recognition software. While every effort has been made to ensure accuracy direct service professional errors may have been included. Yours sincerely, Dr Jaun Carlos Sommers MD, [facility] - Urology Providers of Expert, Compassionate Care for the Genitourinary System Coding Level of Care Code Est Pt Level 3 (47930) Diagnoses Incomplete bladder emptying R33.9 Elevated PSA R97.20 CPT Codes Post Residual Void - PVR CPT Code: 90870-Btar Void Residual by ultrasound ([id number])
== END 2023-08-28 13:59 | disposition home or self-care (01) ==
PROVIDERS: PCP Family Medicine; Visit Provider Urology
DX: R33.9 Retention of urine, unspecified (principal); R97.20 Elevated prostate specific antigen [PSA]
CPT/HCPCS: 99213

== ENCOUNTER → 2023-08-28 13:14 | Outpatient (BNVA) | payer MEDICARE, SELFPAY | PROVIDERS: PCP Family Medicine; Visit Provider Urology | DX: R33.9 Retention of urine, unspecified (principal); R97.20 Elevated prostate specific antigen [PSA] | CPT/HCPCS: 51798; 99212 ==

== ENCOUNTER 2023-10-19 07:36 | Outpatient (REF) | payer MEDICARE, SELFPAY ==
[2023-10-19 11:43] LABS: Basophils Absolute Auto 0.1 X10*3/uL (0.0-0.2); Basophils Percent Auto 0.8 % (0-2); Mean Platelet Volume 11.3 fL (9.4-12.4); SCAN SMEAR FLAG 1
[2023-10-19 11:45] LABS: Eosinophils Absolute Auto 0.4 X10*3/uL (0.0-0.4); Eosinophils Percent Auto 6.5 % (0-4); Hematocrit 32.5 % (42.0-52.0); Hemoglobin 10.2 g/dl (14.0-18.0); Imm Gran Abs Auto 0.01 X10*3/uL (0.00-0.03); Imm Gran Pct Auto 0.2 % (0.0-0.4); Immature Retic Fraction 21.1 % (2.3-13.4); Lymphocytes Absolute Auto 1.4 X10*3/uL (1.2-4.9); Lymphocytes Percent Auto 24.1 % (20-40); MANUAL DIFF FLAG SCAN; Mean Corpuscular HGB Conc 31.4 g/dl (31.0-36.0); Mean Corpuscular Hemoglobin 23.4 pg (27.0-33.0); Mean Corpuscular Volume 74.5 fL (80.0-98.0); Monocytes Absolute Auto 1.2 X10*3/uL (0.1-1.2); Monocytes Percent Auto 20.7 % (2-11); Neutrophils Absolute Auto 2.9 x10*3/uL (2.0-8.3); Neutrophils Percent Auto 47.7 % (45-73); Platelet Count 214 X10*3/uL (160-400); Red Blood Count 4.36 X10*6/uL (4.60-5.80); Red Cell Distribution Width 21.7 % (11.0-16.0); Retic HGB Equivalent 28.1 pg (30.0-35.0); Reticulocyte Percent 1.9 % (0.5-1.8); Reticulocytes Absolute 0.081 X10*6/uL (0.026-0.095)
[2023-10-19 11:50] LABS: PLT ABN DIST 1
[2023-10-19 12:01] LABS: SLIDE REVIEW VERIFIED
[2023-10-19 12:38] LABS: Alanine Aminotransferase 19 U/L (0-40); Albumin Level 4.1 g/dL (3.5-5.0); Alkaline Phosphatase 87 U/L (39-117); Anion Gap 11 (12-20); Aspartate Amino Transferase 21 U/L (5-37); Bilirubin Total 0.7 mg/dL (0.0-1.0); Blood Urea Nitrogen 20 mg/dL (9-16); Calcium 9.4 mg/dL (8.4-10.2); Carbon Dioxide 23 mmol/L (22-29); Chloride 108 mmol/L (96-108); Estimated Glomerular Filt Rate 34; Glucose Random 96 mg/dL (60-115); Iron 198 mcg/dL (45-160); Percent Iron Saturation 58 % (15-50); Potassium 4.3 mmol/L (3.3-5.1); Sodium 138 mmol/L (135-145); Total Iron Binding Capacity 344 mcg/dL (228-428); Total Protein 7.1 g/dL (6.5-8.0); Unsaturated Iron Binding 146 ug/dL
[2023-10-19 12:53] LABS: Prostate Specific Antigen 4.52 ng/mL (<0.05-4.0)
[2023-10-19 13:03] LABS: Vitamin B12 545 pg/mL (200-900)
== END 2023-10-19 07:37 | disposition home or self-care (01) ==
LOC: HO.WFDLDS 07:36
PROVIDERS: Urology; Visit Provider Family Medicine
DX: Z00.00 Encounter for general adult medical examination without abnormal findings (principal); D64.9 Anemia, unspecified; E53.8 Deficiency of other specified B group vitamins; N18.9 Chronic kidney disease, unspecified; R97.20 Elevated prostate specific antigen [PSA]; Z12.5 Encounter for screening for malignant neoplasm of prostate
CPT/HCPCS: 36415; 80053; 82607; 82746; 83540; 84153; 85025; 85045

== ENCOUNTER 2023-10-25 10:45 | Outpatient (AMB) | payer MEDICARE, SELFPAY ==
[2023-10-25 10:50] VITALS: BP 132/60; PULSE 57; O2SAT 98; BMI 29.5
--- NOTE | 2023-10-25 10:50 | MHC.PC.OV ---
Vital Signs 10/25/23 10:50 Height 6 ft 5 in Weight 248 lb 8 oz BMI 29.5 BP 132/60 Blood Pressure Location Lt brachial Position Sitting Pulse 57 Pulse Source Pulse Oximeter Pulse Oximetry (%) 98 Oxygen Delivery Method Room Air Intake Visit Reasons: f/u CRF Intake Note: Patient is here for follow up on CRF today. He is here concerned about excema, iron pills giving him acid reflux from iron pills. Allergies codeine [From CODITUSSIN AC] Allergy (Intermediate, Verified 10/25/23 10:53) VOMITING guaifenesin [From CODITUSSIN AC] Allergy (Intermediate, Verified 10/25/23 10:53) VOMITING lactose [LACTOSE] Allergy (Intermediate, Verified 10/25/23 10:53) GI UPSET/DIARRHEA Tobacco use date assessed: 10/25/23 Fall risk assessment: No Falls in past year Last assessed Fall Risk: 10/25/23 Dental Screening Dental Screen Date: 10/25/23 Did you have a dental visit in the last 12 months?: No Did you have a dental problem in the last 6 months where you did not have access to dental care?: No Was dental information given to patient?: Patient declined HPI f/u CRF HPI Details 73 y/o male presents to f/u CRF and hypertension. Also f/u anemia. Labs were drawn 10/19/23. Reviewed labs with pt. Ongoing anemia but improving. Creatinine level worsened from 1.83 to 1.97. Blood pressure today 132/60. He is on valsartan 40mg, amlodipine 10mg, metoprolol 200mg daily. Pt reports intermittent cloudiness in urine. PFSH Medical History Cardiomyopathy Heart murmur GERD (gastroesophageal reflux disease) Chronic renal insufficiency Arthritis High cholesterol HTN (hypertension) Surgical History Hx of total knee replacement History of esophagogastroduodenoscopy (EGD) H/O colonoscopy Hx of bilateral cataract extraction History of open reduction and internal fixation (ORIF) procedure Family History Father Diabetes Mother No problems noted. 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 1. Little interest or pleasure in doing things: not at all 2. Feeling down, depressed, or hopeless: not at all 3. Trouble falling or staying asleep, or sleeping too much: not at all 4. Feeling tired or having little energy: not at all 5. Poor appetite or overeating: not at all 6. Feeling bad about yourself - or that you are a failure or have let yourself or your family down: not at all 7. Trouble concentrating on things, such as reading the newspaper or watching television: not at all 8. Moving or speaking so slowly that other people could have noticed. Or the opposite - being so fidgety or restless that you have been moving around a lot more than usual: not at all 9. Thoughts that you would be better off or of hurting yourself in some way: not at all Total score: 0 Source: Developed by Drs. Yony Mora, Mariaelena Olguin, Anirudh Ferguson and colleagues, with an educational dieter from [employer]. Thrive Questionnaire Date Thrive assessed: 10/25/23 I am a: Patient What is your living situation today?: I have a steady place to live Within the past 12 months, did the food you bought not last and you didn't have the money to get more?: Never true Within the past 12 months, did you worry whether your food would run out before you got money to buy more?: Never true Do you have trouble paying for medicines?: No Do you have trouble getting transportation to medical appointments?: No Do you have trouble paying your heating and electricity bill?: No Do you have trouble taking care of your child, family member or friend?: No Do you have trouble with day-to-day activities such as bathing, preparing meals, shopping, managing finances, etc.?: No Are you currently unemployed and looking for a job?: No Are you interested in more education?: No THRIVE Score: 0 AUDIT C Alcohol Use Questionnaire (AUDIT-C) 1. How often do you have a drink containing alcohol?: Monthly or less 2. How many drinks containing alcohol do you have on a typical day when you are drinking?: 1 or 2 3. How often do you have six or more drinks on one occasion?: Never Total Score: 1 EMIL-7 AMB Questionnaire EMIL-7 Date EMIL - 7 assessed: 10/25/23 Feeling nervous, anxious, or on edge: 0 = Not at all Not being able to stop or control worryin = Not at all Worrying too much about different things: 0 = Not at all Trouble relaxin = Not at all Being so restless that it is hard to sit still: 0 = Not at all Becoming easily annoyed or irritable: 0 = Not at all Feeling afraid as if something awful might happen: 0 = Not at all Total EMIL-7 score (0-4 normal; 5-9 mild; 10-14 moderate; 15-21 severe): 0 Source: Developed by Drs. Yony Mora, Mariaelena Olguin, Anirudh Ferguson and colleagues, with an educational dieter from [employer]. Review of Systems Const Denies chills, Denies fatigue, Denies fever(s), Denies headache(s) and Denies weakness ENT Denies dizziness and Denies headache(s) Card Denies chest pain, Denies lightheadedness, Denies dyspnea and Denies other (Palpitations) Resp Denies cough, Denies dyspnea, Denies wheezing and Denies other ( shortness of breath) Musc Denies numbness and Denies tingling Neuro Denies dizziness, Denies headache(s), Denies numbness, Denies tingling, Denies paresthesias and Denies weakness Psych Denies anxiety and Denies depression Endo Denies fatigue Aller/Immun Denies wheezing Physical exam (Primary Care) Vital Signs: Last Vital Signs Pulse 57 10/25/23 10:50 BP 132/60 10/25/23 10:50 Pulse Ox 98 10/25/23 10:50 Oxygen Delivery Method Room Air 10/25/23 10:50 BMI result Body Mass Index 29.5 Tobacco/Smoking Status: Tobacco use Status Tobacco use date assessed 10/25/23 10/25/23 10:56 Patient Tobacco Use Status Never used Tobacco 10/25/23 10:56 Tobacco use type Cigar 10/25/23 10:56 e-Cigarette/Vaping Use Never Used 10/25/23 10:56 PHQ-9: PHQ-9 Score PHQ-9: Total score 0 10/25/23 11:21 Thrive Assessment: Date of Thrive Assessment Date Thrive assessed 10/25/23 10/25/23 11:01 Const General: no acute distress and well developed Nutritional Appearance: well nourished Orientation/consciousness: patient oriented x3 HENMT Head: Yes normocephalic and Yes atraumatic Eyes General: appearance normal, both eyes and all related structures Pupils: Equal, round and reactive pupils present EOM: EOMs intact bilaterally Resp Effort & Inspection: normal respiratory effort Auscultation: clear to auscultation bilaterally Cardio Rate: regular rate Rhythm: regular rhythm Heart sounds: S1 normal heart sound present, S2 normal heart sound present, no gallops, no murmurs and no rubs Neuro General: patient oriented x3 and gait normal Cranial nerves: Yes Equal, round and reactive pupils present Psych Affect: normal affect Assessment and Plan Assessment & Plan (1) Chronic renal failure: Code(s): N18.9 - Chronic kidney disease, unspecified Plan: Creatinine?level?continues?to?rise. Stopping?valsartan.??Starting?hydralazine?to?address?blood?pressure?and?renal?failure. Checking?renal?Doppler?to?rule?out?renal?artery?stenosis Follow-up?with?nephrology?as?recommended (2) Hypertension: Code(s): I10 - Essential (primary) hypertension Plan: Blood?pressure?is?a?little?high?and?stopping?valsartan?due?to?renal?failure Start?hydralazine Continue?metoprolol?and?amlodipine. (3) Mild anemia: Code(s): D64.9 - Anemia, unspecified Plan: Anemia?is?improving?with?iron?supplementation. He?can?switch?to?taking?this?every?3rd?day Will?continue?to?follow-up?on?H&H (4) Cloudy urine: Code(s): R82.90 - Unspecified abnormal findings in urine Plan: Check?urine?dip?and?urinalysis Orders: Orders US renal doppler Today N18.9 - Chronic kidney disease, unspecified UA and rflx microscopic Today R82.90 - Unspecified abnormal findings in urine, Z00.00 - Encounter for general adult medical examination without abnormal findings IRON PROFILE Today D64.9 - Anemia, unspecified Complete Blood Count Auto Diff Today D64.9 - Anemia, unspecified, Z00.00 - Encounter for general adult medical examination without abnormal findings Medications: New triamcinolone acetonide 0.5% 1 appl topical DAILY 30 grams 1RF 14 days hydralazine 10 mg PO TID 90 tabs 3RF 30 days Discontinued valsartan Discontinued Reason: Doctor's Order 40 mg PO DAILY 30 days 30 tabs 2RF Coding Level of Care Code Est Pt Level 4 (64761) Diagnoses Chronic renal failure N18.9 Hypertension I10 Mild anemia D64.9 Cloudy urine R82.90
== END 2023-10-25 11:44 | disposition home or self-care (01) ==
PROVIDERS: PCP Family Medicine; Visit Provider Family Medicine
DX: I12.9 Hypertensive chronic kidney disease with stage 1 through stage 4 chronic kidney disease, or unspecified chronic kidney disease (principal); N18.9 Chronic kidney disease, unspecified; D64.9 Anemia, unspecified; R82.90 Unspecified abnormal findings in urine
CPT/HCPCS: 81003; 99214

== ENCOUNTER 2023-10-25 14:42 | Outpatient (REF) | payer MEDICARE, SELFPAY ==
[2023-10-25 15:06] LABS: Appearance Urine Turbid; Color Urine Yellow; Glucose Urine UA Negative (Negative); Leukocyte Esterase Urine Large (3+) (Negative); Nitrite Urine Negative (Negative); Specific Gravity - Urine <= 1.005 (1.005-1.025); UMIC TRIGGER UA YES; Urine Blood Small (1+) (Negative); Urine Ketones Negative (Negative); Urine Protein Negative (Neg-Trace)
[2023-10-25 15:36] LABS: Bacteria Urine None Seen (None Seen); Hyaline Casts Urine 0-2 /LPF (0-2); RBC Urine 0-2 /HPF (0-2); Squamous Epithelial Cell Urine 0-2 /HPF (0-2); WBC Urine >50 /HPF (0-5)
== END 2023-10-25 14:43 | disposition home or self-care (01) ==
LOC: HO.LNP 14:42
PROVIDERS: Visit Provider Family Medicine
DX: Z00.00 Encounter for general adult medical examination without abnormal findings (principal)
CPT/HCPCS: 81001; 81003

== ENCOUNTER 2023-12-27 10:48 | Outpatient (AMB) | payer MEDICARE, SELFPAY ==
--- NOTE | 2023-12-27 11:02 | A.OFFPC_ITS ---
Vital Signs 12/27/23 11:05 Height 6 ft 5 in Weight 246 lb BMI 29.2 BP 130/82 Blood Pressure Location Lt brachial Position Sitting Pulse 57 Pulse Source Pulse Oximeter Pulse Oximetry (%) 98 Oxygen Delivery Method Room Air Intake Visit Reasons: f/u HTN & CRF Intake Note: Patient is here to follow up on hypertension and and CRF. Allergies codeine [From CODITUSSIN AC] Allergy (Intermediate, Verified 12/27/23 11:07) VOMITING guaifenesin [From CODITUSSIN AC] Allergy (Intermediate, Verified 12/27/23 11:07) VOMITING lactose [LACTOSE] Allergy (Intermediate, Verified 12/27/23 11:07) GI UPSET/DIARRHEA Medication List - Last Reconciled 12/27/23 by Jalen Casiano MD amlodipine 10 mg PO DAILY 30 days aspirin 81 mg PO DAILY atorvastatin 40 mg PO DAILY 90 days blood pressure monitor Automatic, Digital. Dx: I10. Daily As directed, 999 days/lifetime cholecalciferol (vitamin D3) 50 mcg PO DAILY 30 days ferrous sulfate 325 mg PO Q OTHER DAY 30 days finasteride 5 mg PO DAILY 90 days hydralazine 10 mg PO TID 30 days metoprolol succinate ER 200 mg PO DAILY 90 days omeprazole 40 mg PO QAM 90 days sildenafil 100 mg PO DAILY PRN 30 days terazosin 5 mg PO BEDTIME 90 days tramadol 50 mg PO DAILY PRN 28 days triamcinolone acetonide 0.5% 1 appl topical DAILY 14 days Tobacco use date assessed: 12/27/23 Fall risk assessment: No Falls in past year Last assessed Fall Risk: 12/27/23 Dental Screening Dental Screen Date: 10/25/23 HPI f/u HTN & CRF HPI Details 73 y/o male presents to f/u hypertension and CRF. Had changed valsartan to hydralazine and continued his metoprolol, amlodipine. Had ordered a renal Doppler. He is followed by Nephrology. Blood pressure today 130/82. He is on metoprolol 200mg, amlodipine 10mg, hydralazine 10mg t.i.d. Pt notes he has been consistent with his hydralazine use 95% of the time. Pt has complaints of shoulder pain. HPI Comments History of Present Illness Details Documentation assistance for Jalen Casiano MD, was provided by Asim Kumar,? Cross Country/Track [employer] Coach on 12/27/2023 11:37 AM EST. Beth, Dr. Casiano, have read, observed, and verified documentation. [facility] Medical History Cardiomyopathy Heart murmur GERD (gastroesophageal reflux disease) Chronic renal insufficiency Arthritis High cholesterol HTN (hypertension) Surgical History Hx of total knee replacement History of esophagogastroduodenoscopy (EGD) H/O colonoscopy Hx of bilateral cataract extraction History of open reduction and internal fixation (ORIF) procedure Family History (Updated 12/27/23 @ 11:09 by Janette Marino CMA) Father Diabetes Mother No problems noted. 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 Yony Mora, Mariaelena Olguin, Anirudh Ferguson and colleagues, with an educational dieter from [employer]. Review of Systems Const Denies chills, Denies fatigue, Denies fever(s), Denies headache(s) and Denies weakness ENT Denies dizziness and Denies headache(s) Card Denies dyspnea Resp Denies cough, Denies dyspnea, Denies wheezing and Denies other (shortness of breath) Musc Details: Shoulder pain Denies numbness and Denies tingling Neuro Denies dizziness, Denies headache(s), Denies numbness, Denies tingling and Denies weakness Psych Denies anxiety and Denies depression Endo Denies fatigue Aller/Immun Denies wheezing Physical exam (Primary Care) Vital Signs: Last Vital Signs Pulse 57 12/27/23 11:05 BP 130/82 12/27/23 11:05 Pulse Ox 98 12/27/23 11:05 Oxygen Delivery Method Room Air 12/27/23 11:05 BMI result Body Mass Index 29.2 Tobacco/Smoking Status: Tobacco use Status Tobacco use date assessed 12/27/23 12/27/23 11:12 Patient Tobacco Use Status Never used Tobacco 12/27/23 11:04 Tobacco use type Cigar 12/27/23 11:04 e-Cigarette/Vaping Use Never Used 12/27/23 11:04 Thrive Assessment: Date of Thrive Assessment Date Thrive assessed 10/25/23 12/27/23 11:04 Const General: well developed; No acute distress Nutritional Appearance: well nourished Orientation/consciousness: patient oriented x3 HENMT Head: Yes normocephalic and Yes atraumatic Eyes General: appearance normal, both eyes and all related structures Pupils: Equal, round and reactive pupils present EOM: EOMs intact bilaterally Resp Effort & Inspection: normal respiratory effort Auscultation: clear to auscultation bilaterally Cardio Rate: regular rate Rhythm: regular rhythm Heart sounds: S1 normal heart sound present, S2 normal heart sound present, no gallops, no murmurs and no rubs Neuro General: patient oriented x3 and gait normal Cranial nerves: Yes Equal, round and reactive pupils present Psych Affect: normal affect Assessment and Plan Assessment & Plan (1) Hypertension: Code(s): I10 - Essential (primary) hypertension Plan: Patient?with?chronic?renal?failure?and?hypertension.??I?had?discontinued?his?nancy sartan?as?creatinine?level?continued?to?climb. Switched?him?to?hydralazine?and?ordered?lab?work.??He?has?not?had?this?drawn?yet Blood?pressure?shows?fair?control.??Goal?is?less?than?130/80 Continue?current?medication?regimen Watch?salt/sodium?and?alcohol (2) Chronic renal failure: Code(s): N18.9 - Chronic kidney disease, unspecified Plan: As?above,?renal?fun ction?had?been?declining?and?I?discontinued?valsartan?and?added?hydralazine?for? blood?pressure?control. Ordered?a?renal?ultrasound?but?this?has?not?been?performed?yet?and?I?will?ask?th e?office?to?check?on?the?status?of?this?study He?has?seen?his?ore dryer,?Dr. Noble but?I?do?not?have?his?most?recent?note?so?I?am?requesting?the (3) Shoulder pain: Code(s): M25.519 - Pain in unspecified shoulder Plan: Left?shoulder?pain.??Avoiding?NSAIDs?due?to?renal?failure Does?have?tramadol?for?pain Will?give?him?a?short?course?of?cyclobenzaprine?x5?days?at?bedtime. Also?advised?ice/heat?and?relative?rest (4) Abnormal urine: Code(s): R82.90 - Unspecified abnormal findings in urine Plan: Ongoing?abnormal?urine. Will?give?him?empiric?treatment?with?cephalexin Recheck?urinalysis If?not ?improving?after?cephalexin,?he?will?let?me?know?and?at?that?point?I?will?refer? him?back?to?his?urologist. Orders: Orders Comprehensive Met. Panel Today N18.9 - Chronic kidney disease, unspecified UA and rflx microscopic Today R82.90 - Unspecified abnormal findings in urine, Z00.00 - Encounter for general adult medical examination without abnormal findings Complete Blood Count Auto Diff Today D64.9 - Anemia, unspecified, Z00.00 - Enc ounter for general adult medical examination without abnormal findings IRON PROFILE Today D64.9 - Anemia, unspecified Medications: New cephalexin 500 mg PO Q12H 10 days 20 caps 0RF cyclobenzaprine 10 mg PO BEDTIME 5 days PRN 5 tabs 0RF muscle spasm Coding Level of Care Code Est Pt Level 4 (52161) Diagnoses Hypertension I10 Chronic renal failure N18.9 Shoulder pain M25.519 Abnormal urine R82.90
[2023-12-27 11:05] VITALS: BP 130/82; PULSE 57; O2SAT 98; BMI 29.2
== END 2023-12-27 11:55 | disposition home or self-care (01) ==
PROVIDERS: PCP Family Medicine; Visit Provider Family Medicine
DX: I12.9 Hypertensive chronic kidney disease with stage 1 through stage 4 chronic kidney disease, or unspecified chronic kidney disease (principal); N18.9 Chronic kidney disease, unspecified; M25.512 Pain in left shoulder; R82.90 Unspecified abnormal findings in urine
CPT/HCPCS: 99214

== ENCOUNTER 2023-12-27 11:48 | Outpatient (REF) | payer MEDICARE, SELFPAY ==
[2023-12-27 14:34] LABS: Appearance Urine Turbid; Color Urine Yellow; Glucose Urine UA Negative (Negative); Leukocyte Esterase Urine Large (3+) (Negative); Nitrite Urine Negative (Negative); UMIC TRIGGER UA YES; Urine Blood Small (1+) (Negative); Urine Ketones Negative (Negative); Urine Protein 30 (1+) mg/dL (Neg-Trace)
[2023-12-27 14:35] LABS: Basophils Percent Auto 0.7 % (0-2); Eosinophils Absolute Auto 0.2 X10*3/uL (0.0-0.4); Eosinophils Percent Auto 3.5 % (0-4); Hematocrit 33.3 % (42.0-52.0); Hemoglobin 10.6 g/dl (14.0-18.0); Imm Gran Abs Auto 0.01 X10*3/uL (0.00-0.03); Imm Gran Pct Auto 0.2 % (0.0-0.4); Lymphocytes Absolute Auto 1.6 X10*3/uL (1.2-4.9); Lymphocytes Percent Auto 28.5 % (20-40); MANUAL DIFF FLAG SCAN; Mean Corpuscular HGB Conc 31.8 g/dl (31.0-36.0); Mean Corpuscular Hemoglobin 24.8 pg (27.0-33.0); Mean Platelet Volume 11.1 fL (9.4-12.4); Monocytes Absolute Auto 1.4 X10*3/uL (0.1-1.2); Monocytes Percent Auto 25.2 % (2-11); Neutrophils Absolute Auto 2.4 x10*3/uL (2.0-8.3); Neutrophils Percent Auto 41.9 % (45-73); Platelet Count 244 X10*3/uL (160-400); Red Blood Count 4.27 X10*6/uL (4.60-5.80); Red Cell Distribution Width 17.2 % (11.0-16.0); SCAN SMEAR FLAG 1; White Blood Count 5.7 X10*3/uL (4.8-10.8)
[2023-12-27 14:42] LABS: Alanine Aminotransferase 23 U/L (0-40); Albumin Level 4.3 g/dL (3.5-5.0); Alkaline Phosphatase 90 U/L (39-117); Anion Gap 14 (12-20); Aspartate Amino Transferase 27 U/L (5-37); Bilirubin Total 0.5 mg/dL (0.0-1.0); Blood Urea Nitrogen 19 mg/dL (9-16); Calcium 9.5 mg/dL (8.4-10.2); Carbon Dioxide 24 mmol/L (22-29); Chloride 106 mmol/L (96-108); Estimated Glomerular Filt Rate 45; Glucose Random 106 mg/dL (60-115); Iron 31 mcg/dL (45-160); Percent Iron Saturation 9 % (15-50); Potassium 4.2 mmol/L (3.3-5.1); Sodium 140 mmol/L (135-145); Total Iron Binding Capacity 341 mcg/dL (228-428); Total Protein 7.4 g/dL (6.5-8.0); Unsaturated Iron Binding 310 ug/dL
[2023-12-27 14:47] LABS: Bacteria Urine Trace (None Seen); Hyaline Casts Urine 0-2 /LPF (0-2); RBC Urine 0-2 /HPF (0-2); Squamous Epithelial Cell Urine 0-2 /HPF (0-2); WBC Clumps Urine Present; WBC Urine >50 /HPF (0-5)
[2023-12-27 14:56] LABS: SLIDE REVIEW VERIFIED
== END 2023-12-27 11:49 | disposition home or self-care (01) ==
LOC: HO.WFDLDS 11:48
PROVIDERS: Visit Provider Family Medicine
DX: Z00.00 Encounter for general adult medical examination without abnormal findings (principal); D64.9 Anemia, unspecified; N18.9 Chronic kidney disease, unspecified
CPT/HCPCS: 36415; 80053; 81001; 83540; 85025

== ENCOUNTER 2024-01-22 08:01 | Outpatient (REF) | payer MEDICARE, SELFPAY ==
--- NOTE | ~2024-01-22 | US_ITS ---
EXAMINATION: ULTRASOUND RENAL WITH DOPPLER CLINICAL INFORMATION: Hypertension. COMPARISON: Renal ultrasound 11/27/2022. TECHNIQUE: Real-time grayscale, color Doppler, and duplex Doppler evaluation of the kidneys and renal vasculature was performed. FINDINGS: RENAL MEASUREMENTS: Right: 11.0 x 5.8 x 6.8 cm (Sag x AP x TV) Left: 13.4 x 6.1 x 4.6 cm (Sag x AP x TV) The renal parenchyma appears normal. No hydronephrosis or nephrolithiasis. DOPPLER INTERROGATION: AORTA: Mid aorta: 139 cm/sec RIGHT MAIN RENAL ARTERY: Proximal: 89 cm/sec Mid: 167 cm/sec Distal: 94 cm/sec LEFT MAIN RENAL ARTERY: Proximal: 113 cm/sec Mid: 199 cm/sec Distal: 96 cm/sec RENAL-AORTIC RATIO (RAR): Right: Not calculated due to mid aortic velocity outside of range 40-100 cm/s making RAR inaccurate. Left: Not calculated due to mid aortic velocity outside of range 40-100 cm/s making RAR inaccurate. SEGMENTAL RESISTIVE INDICES: Right: 0.75-0.78 Left: 0.72-0.79 RENAL VEINS: Right: Patent with normal waveform. Left: Patent with normal waveform. US/US renal doppler IMPRESSION: Findings consistent with less than 60% stenosis of the mid left renal artery. Recommend further evaluation with CTA or MRA of the abdomen without and with intravenous contrast.
--- NOTE | ~2024-01-22 | US_ITS ---
EXAMINATION: ULTRASOUND RENAL WITH DOPPLER CLINICAL INFORMATION: Hypertension. COMPARISON: Renal ultrasound 11/27/2022. TECHNIQUE: Real-time grayscale, color Doppler, and duplex Doppler evaluation of the kidneys and renal vasculature was performed. FINDINGS: RENAL MEASUREMENTS: Right: 11.0 x 5.8 x 6.8 cm (Sag x AP x TV) Left: 13.4 x 6.1 x 4.6 cm (Sag x AP x TV) The renal parenchyma appears normal. No hydronephrosis or nephrolithiasis. DOPPLER INTERROGATION: AORTA: Mid aorta: 139 cm/sec RIGHT MAIN RENAL ARTERY: Proximal: 89 cm/sec Mid: 167 cm/sec Distal: 94 cm/sec LEFT MAIN RENAL ARTERY: Proximal: 113 cm/sec Mid: 199 cm/sec Distal: 96 cm/sec RENAL-AORTIC RATIO (RAR): Right: Not calculated due to mid aortic velocity outside of range 40-100 cm/s making RAR inaccurate. Left: Not calculated due to mid aortic velocity outside of range 40-100 cm/s making RAR inaccurate. SEGMENTAL RESISTIVE INDICES: Right: 0.75-0.78 Left: 0.72-0.79 RENAL VEINS: Right: Patent with normal waveform. Left: Patent with normal waveform. US/US renal BI IMPRESSION: Findings consistent with less than 60% stenosis of the mid left renal artery. Recommend further evaluation with CTA or MRA of the abdomen without and with intravenous contrast.
== END 2024-01-22 08:02 | disposition home or self-care (01) ==
LOC: HO.US 08:01
PROVIDERS: Visit Provider Family Medicine
DX: I12.9 Hypertensive chronic kidney disease with stage 1 through stage 4 chronic kidney disease, or unspecified chronic kidney disease (principal); N18.9 Chronic kidney disease, unspecified
CPT/HCPCS: 76775; 93975

== ENCOUNTER 2024-02-26 09:32 | Outpatient (REF) | payer MEDICARE, SELFPAY ==
[2024-02-26 11:27] LABS: Eosinophils Absolute Auto 0.3 X10*3/uL (0.0-0.4); Eosinophils Percent Auto 7.8 % (0-4); Hematocrit 32.3 % (42.0-52.0); Hemoglobin 10.4 g/dl (14.0-18.0); Imm Gran Abs Auto 0.01 X10*3/uL (0.00-0.03); Imm Gran Pct Auto 0.3 % (0.0-0.4); Lymphocytes Absolute Auto 1.4 X10*3/uL (1.2-4.9); Lymphocytes Percent Auto 34.2 % (20-40); MANUAL DIFF FLAG SCAN; Mean Corpuscular HGB Conc 32.2 g/dl (31.0-36.0); Mean Corpuscular Hemoglobin 25.6 pg (27.0-33.0); Mean Corpuscular Volume 79.6 fL (80.0-98.0); Mean Platelet Volume 11.4 fL (9.4-12.4); Monocytes Absolute Auto 0.9 X10*3/uL (0.1-1.2); Monocytes Percent Auto 22.3 % (2-11); Neutrophils Absolute Auto 1.4 x10*3/uL (2.0-8.3); Neutrophils Percent Auto 34.4 % (45-73); Platelet Count 205 X10*3/uL (160-400); Red Blood Count 4.06 X10*6/uL (4.60-5.80); Red Cell Distribution Width 18.5 % (11.0-16.0); SCAN SMEAR FLAG 1
[2024-02-26 11:40] LABS: Appearance Urine Clear; Color Urine Yellow; Glucose Urine UA Negative (Negative); Leukocyte Esterase Urine Negative (Negative); Nitrite Urine Negative (Negative); Urine Blood Negative (Negative); Urine Ketones Negative (Negative); Urine Protein Negative (Neg-Trace)
[2024-02-26 11:46] LABS: Iron 32 mcg/dL (45-160); Percent Iron Saturation 11 % (15-50); SLIDE REVIEW VERIFIED; Total Iron Binding Capacity 294 mcg/dL (228-428); Unsaturated Iron Binding 262 ug/dL
== END 2024-02-26 09:33 | disposition home or self-care (01) ==
LOC: HO.WFDLDS 09:32
PROVIDERS: Visit Provider Family Medicine
DX: Z00.00 Encounter for general adult medical examination without abnormal findings (principal); R82.90 Unspecified abnormal findings in urine; D64.9 Anemia, unspecified
CPT/HCPCS: 36415; 81003; 83540; 85025

== ENCOUNTER 2024-02-28 10:40 | Outpatient (AMB) | payer MEDICARE, SELFPAY ==
--- NOTE | 2024-02-28 10:51 | MHC.OFFVIS ---
Intake Visit Reasons: 6M Follow Up-PSA/PVR/Urinalysis(set) Intake Note: Patient is Present for 6M Follow Up PVR/PSA/URINALYSIS Urology Medication: Terazosin, Finasteride, Sildenafil Antibiotic Allergies: None Blood Thinners: Aspirin PVR: 362 TODAY'S PVR:0ML'S Photo Manager Required: No Allergies codeine [From CODITUSSIN AC] Allergy (Intermediate, Verified 02/28/24 10:53) VOMITING guaifenesin [From CODITUSSIN AC] Allergy (Intermediate, Verified 02/28/24 10:53) VOMITING lactose [LACTOSE] Allergy (Intermediate, Verified 02/28/24 10:53) GI UPSET/DIARRHEA Medication List - Last Reconciled 02/28/24 by Juan Carlos Sommers MD amlodipine 10 mg PO DAILY 30 days aspirin 81 mg PO DAILY atorvastatin 40 mg PO DAILY 90 days blood pressure monitor Automatic, Digital. Dx: I10. Daily As directed, 999 days/lifetime cephalexin 500 mg PO Q12H 10 days cholecalciferol (vitamin D3) 50 mcg PO DAILY 30 days ferrous sulfate 325 mg PO Q OTHER DAY 30 days finasteride 5 mg PO DAILY 90 days hydralazine 10 mg PO TID 30 days metoprolol succinate ER 200 mg PO DAILY 90 days omeprazole 40 mg PO QAM 90 days sildenafil 100 mg PO DAILY PRN 30 days terazosin 5 mg PO BEDTIME 90 days tramadol 50 mg PO DAILY PRN 28 days triamcinolone acetonide 0.5% 1 appl topical DAILY 14 days HPI Comments Details: Drew is a pleasant male. He is a patient Dr. Casiano. He seen for the following urologic conditions - neurogenic bladder - elevated PSA - erectile dysfunction Six-month follow-up GreenLight laser Current PVR 0 cc PSA 11/27 4.5 Neurogenic bladder On initial assessment found to have large postvoid residual of over 1000 cc PSA 11/26 5.1 Creatinine 1.7 Medical therapy finasteride, terazosin Imaging - 11/26 renal bladder ultrasound 80 g prostate GreenLight laser prostatectomy and suprapubic tube placement 05/28 [facility] Medical History Cardiomyopathy Heart murmur GERD (gastroesophageal reflux disease) Chronic renal insufficiency Arthritis High cholesterol HTN (hypertension) Surgical History Hx of total knee replacement History of esophagogastroduodenoscopy (EGD) H/O colonoscopy Hx of bilateral cataract extraction History of open reduction and internal fixation (ORIF) procedure Family History (Updated 12/27/23 @ 11:09 by Janette Marino CMA) Father Diabetes Mother No problems noted. 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 Current occupational exposures/hazards: No Cognitive needs: No Hearing needs: No Vision needs: No Review of Systems Const Denies chills and Denies fever(s) Card Reports no additional complaints and Denies syncope Resp Denies cough GI Denies abdominal pain and Denies heartburn Reports as per HPI and Denies change in libido Neuro Denies syncope Psych Denies change in libido Endo Denies change in libido Physical Exam Const General: cooperative, healthy appearing, comfortable and no acute distress Orientation/consciousness: patient oriented x3 HEENT Face and sinus: Yes normal facial exam Mouth: moist mucous membranes Neck Neck: Yes normal visual inspection, Yes full ROM and Yes trachea midline Chest Chest palpation & inspection: normal inspection of the chest Resp Effort & Inspection: normal respiratory effort, able to speak in complete sentences and no respiratory distress GI Inspection: Yes normal to inspection Back/Spine/Pelvis Cervical Spine: normal cervical lordosis Thoracic/Lumbar Spine: thoracic and lumbar spine normal to inspection Skin General skin exam: no rashes or lesions noted Neuro General: patient oriented x3, gait normal, tone normal and moves all extremities Extrem General: Yes normal to inspection and Yes capillary refill normal Office Procedures Post Void Residual Post Residual Void Post Void Residual (PVR): 0 [id number] Void Residual by ultrasound Results AMB Urinalysis, Automated UA Leukoctes 0 [place]/uL Last Edit by MARIA FERNANDA Nicholas on 02/28/24 10:59 UA Nitrite Negative Last Edit by MARIA FERNANDA Nicholas on 02/28/24 10:59 UA Urobilinogen 0.2 mg/dL Last Edit by MARIA FERNANDA Nicholas on 02/28/24 10:59 UA Protein 0 mg/dL Last Edit by MARIA FERNANDA Nicholas on 02/28/24 10:59 UA pH 6.0 Last Edit by MARIA FERNANDA Nicholas on 02/28/24 10:59 UA Blood 0 Jose/uL Last Edit by MARIA FERNANDA Nicholas on 02/28/24 10:59 UA Specific [place] 1.010 Last Edit by MARIA FERNANDA Nicholas on 02/28/24 10:59 UA Ketone Negative Last Edit by MARIA FERNANDA Nicholas on 02/28/24 10:59 UA Bilirubin 0 mg/dL Last Edit by MARIA FERNANDA Nicholas on 02/28/24 10:59 UA Glucose 0 mg/dL Last Edit by MARIA FERNANDA Nicholas on 02/28/24 10:59 Results Reviewed Results Reviewed: Laboratory Last Values Urine pH (Auto) 6.0 02/28/24 10:58 Specific [place] (Auto) 1.010 02/28/24 10:58 Urine Protein (Auto) 0 mg/dL 02/28/24 10:58 Glucose (UA)(Auto) 0 mg/dL 02/28/24 10:58 Urine Ketones (Auto) Negative 02/28/24 10:58 Urine Blood (Auto) 0 Jose/uL 02/28/24 10:58 Urine Nitrite (Auto) Negative 02/28/24 10:58 Urine Bilirubin (Auto) 0 mg/dL 02/28/24 10:58 Urine Urobilinogen (Auto) 0.2 mg/dL 02/28/24 10:58 Leukocyte Esterase (Auto) 0 [place]/uL 02/28/24 10:58 Assessment & Plan Assessment & Plan (1) Urinary urgency: Code(s): R39.15 - Urgency of urination Category: Medical (2) Urinary frequency: Code(s): R35.0 - Frequency of micturition Category: Medical Plan Six-month follow-up PSA Orders: Orders AMB Urinalysis Automated Today Z13.9 - Encounter for screening, unspecified PSA,Total (Free>4and<10) 6 Months R97.20 - Elevated prostate specific antigen [PSA] Patient Instructions: Imaging studies, laboratory and physical exam results were discussed and reviewed in detail. No major barriers to patient understanding were identified. An opportunity to ask questions regarding the treatment plan was provided. All questions were answered. The patient expressed understanding and agreement with the above treatment plan. The patient is aware they should contact our office by phone for worsening of their current condition or the appearance of new urologic symptoms. Compliance is encouraged with any medications and followup testing that is ordered. It is a privilege to participate in the urologic care of your patient. If you have any questions or concerns regarding treatment for the above conditions, or other urologic issues, please do not hesitate to contact me. The office telephone contact is [phone]. This note is constructed using voice recognition software. While every effort has been made to ensure accuracy devulcanizer head errors may have been included. Yours sincerely, Dr Juan Carlos Sommers MD, [facility] - Urology Providers of Expert, Compassionate Care for the Genitourinary System Coding Level of Care Code Est Pt Level 3 (23120) Diagnoses Urinary urgency R39.15 Urinary frequency R35.0 CPT Codes Post Residual Void - PVR CPT Code: 67868-[id number] Void Residual by ultrasound ([id number])
== END 2024-02-28 11:19 | disposition home or self-care (01) ==
PROVIDERS: PCP Family Medicine; Visit Provider Urology
DX: R39.15 Urgency of urination (principal); R35.0 Frequency of micturition; Z13.9 Encounter for screening, unspecified
CPT/HCPCS: 99213

== ENCOUNTER → 2024-02-28 10:40 | Outpatient (BNVA) | payer MEDICARE, SELFPAY | PROVIDERS: PCP Family Medicine; Visit Provider Urology | DX: R39.15 Urgency of urination (principal); R35.0 Frequency of micturition | CPT/HCPCS: 51798; 81003; 99212 ==

== ENCOUNTER 2024-03-20 11:41 | Outpatient (AMB) | payer MEDICARE, SELFPAY ==
--- NOTE | 2024-03-20 11:50 | MHC.PC.OV ---
Vital Signs 03/20/24 11:55 Height 6 ft 5 in Weight 241 lb 4 oz BMI 28.6 BP 120/60 Blood Pressure Location Rt brachial Position Sitting Respiration 16 Pulse 61 Pulse Source Pulse Oximeter Temp 98 F Temp Source Tympanic Pulse Oximetry (%) 98 Oxygen Delivery Method Room Air Intake Visit Reasons: f/u hypertension Intake Note: follow up for htn Allergies codeine [From CODITUSSIN AC] Allergy (Intermediate, Verified 03/20/24 11:53) VOMITING guaifenesin [From CODITUSSIN AC] Allergy (Intermediate, Verified 03/20/24 11:53) VOMITING lactose [LACTOSE] Allergy (Intermediate, Verified 03/20/24 11:53) GI UPSET/DIARRHEA Tobacco use date assessed: 12/27/23 Dental Screening Dental Screen Date: 10/25/23 HPI f/u hypertension HPI Details 74 y/o male presents to f/u hypertension, CRF. Blood pressure today 120/60. He is on metoprolol 200mg, hydralazine 10mg t.i.d., amlodipine 10mg daily. Recent creatinine level 12/27/23 at 1.54 Has been noticing some foot numbness/puffiness the past two days HPI Comments History of Present Illness Details Documentation assistance for Jalen Casiano MD, was provided by Asim Kumar, Customer Experience Intern on 03/20/2024 at 12:08 PM EST. I, Dr. Casiano, have read, observed, and verified documentation. [facility] Medical History Cardiomyopathy Heart murmur GERD (gastroesophageal reflux disease) Chronic renal insufficiency Arthritis High cholesterol HTN (hypertension) Surgical History Hx of total knee replacement History of esophagogastroduodenoscopy (EGD) H/O colonoscopy Hx of bilateral cataract extraction History of open reduction and internal fixation (ORIF) procedure Family History (Updated 12/27/23 @ 11:09 by Janette Marino CMA) Father Diabetes Mother No problems noted. 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 Yony Mora, Mariaelena Olguin, Anirudh Ferguson and colleagues, with an educational dieter from [employer]. Review of Systems Const Denies chills, Denies fatigue, Denies fever(s), Denies headache(s) and Denies weakness ENT Denies dizziness and Denies headache(s) Card Denies dyspnea Resp Denies cough, Denies dyspnea, Denies wheezing and Denies other (shortness of breath) Musc Denies numbness and Denies tingling Neuro Denies dizziness, Denies headache(s), Denies numbness, Denies tingling and Denies weakness Psych Denies anxiety and Denies depression Endo Denies fatigue Aller/Immun Denies wheezing Physical exam (Primary Care) Vital Signs: Last Vital Signs Temp 98 F 03/20/24 11:55 Pulse 61 03/20/24 11:55 Resp 16 03/20/24 11:55 BP 120/60 03/20/24 11:55 Pulse Ox 98 03/20/24 11:55 Oxygen Delivery Method Room Air 03/20/24 11:55 BMI result Body Mass Index 28.6 Tobacco/Smoking Status: Tobacco use Status Tobacco use date assessed 12/27/23 03/20/24 11:51 Patient Tobacco Use Status Never used Tobacco 03/20/24 11:51 Tobacco use type Cigar 03/20/24 11:51 e-Cigarette/Vaping Use Never Used 03/20/24 11:51 Thrive Assessment: Date of Thrive Assessment Date Thrive assessed 10/25/23 03/20/24 11:51 Const General: well developed; No acute distress Nutritional Appearance: well nourished Orientation/consciousness: patient oriented x3 HENMT Head: Yes normocephalic and Yes atraumatic Eyes General: appearance normal, both eyes and all related structures Pupils: Equal, round and reactive pupils present EOM: EOMs intact bilaterally Resp Effort & Inspection: normal respiratory effort Neuro General: patient oriented x3 and gait normal Cranial nerves: Yes Equal, round and reactive pupils present Psych Affect: normal affect Assessment and Plan Assessment & Plan (1) Hypertension: Code(s): I10 - Essential (primary) hypertension Plan: Blood?pressure?is?well?controlled.??Goal?is?less?than?140/90 Continue?current?medication?regimen (2) Chronic renal failure: Code(s): N18.9 - Chronic kidney disease, unspecified Plan: Much?improved?with?use?of?hydralazine He?continues?metoprolol?and?amlodipine?as?well?for?blood?pressure Ultrasound?did?show?some?renal?artery?stenosis?less?than?60% Follow-up?with?nephrology?as?recommended (3) Numbness of feet: Code(s): R20.0 - Anesthesia of skin Plan: Patient?has?a?small?region?of?numbness?at?distal?plantar?aspect?of?foot?between?when?2nd?and?3rd?metatarsals He?is?on?his?feet?for?long?hours?and?wears?boots/steel?toe?boot Likely?nerve?compression?and?I?advised?he?change?his?foot?gear. If?not?improving?will?refer?him?back?to?Podiatry Coding Level of Care Code Est Pt Level 4 (26793) Diagnoses Hypertension I10 Chronic renal failure N18.9 Numbness of feet R20.0
[2024-03-20 11:55] VITALS: BP 120/60; PULSE 61; RESP 16; TEMP 36.6; O2SAT 98; BMI 28.6
== END 2024-03-20 12:17 | disposition home or self-care (01) ==
PROVIDERS: PCP Family Medicine; Visit Provider Family Medicine
DX: I12.9 Hypertensive chronic kidney disease with stage 1 through stage 4 chronic kidney disease, or unspecified chronic kidney disease (principal); N18.9 Chronic kidney disease, unspecified; R20.0 Anesthesia of skin
CPT/HCPCS: 99214

== ENCOUNTER 2024-08-26 08:55 | Outpatient (REF) | payer MEDICARE, SELFPAY ==
[2024-08-26 11:32] LABS: Appearance Urine Clear; Color Urine Yellow; Glucose Urine UA Negative (Negative); Leukocyte Esterase Urine Negative (Negative); Nitrite Urine Negative (Negative); Urine Blood Negative (Negative); Urine Ketones Negative (Negative); Urine Protein Negative (Neg-Trace)
[2024-08-26 12:10] LABS: Alanine Aminotransferase 32 U/L (0-40); Alkaline Phosphatase 71 U/L (39-117); Anion Gap 9 (12-20); Aspartate Amino Transferase 37 U/L (5-37); Bilirubin Total 0.7 mg/dL (0.0-1.0); Blood Urea Nitrogen 18 mg/dL (9-16); Calcium 8.7 mg/dL (8.4-10.2); Carbon Dioxide 26 mmol/L (22-29); Chloride 107 mmol/L (96-108); Cholesterol 124 mg/dL (<200); Estimated Glomerular Filt Rate 43; Glucose Fasting 96 mg/dL (60-99); HDL Cholesterol 37 mg/dL (>40); LDL Cholesterol Calculated 67 mg/dL (<100); Potassium 4.1 mmol/L (3.3-5.1); Sodium 138 mmol/L (135-145); Total Protein 6.9 g/dL (6.5-8.0); Triglycerides 101 mg/dL (<150)
== END 2024-08-26 08:56 | disposition home or self-care (01) ==
LOC: HO.WFDLDS 08:55
PROVIDERS: Visit Provider Family Medicine
DX: Z00.00 Encounter for general adult medical examination without abnormal findings (principal); R82.90 Unspecified abnormal findings in urine
CPT/HCPCS: 36415; 80053; 80061; 81003

== ENCOUNTER 2024-08-28 09:41 | Outpatient (AMB) | payer MEDICARE, SELFPAY ==
--- NOTE | 2024-08-28 09:42 | A.OFFVIS_ITS ---
Intake Visit Reasons: 6M PSA/PVR(Set) Intake Note: Patient is present for 6M PSA/ PVR Urology Medication:SILDENAFIL,TERAZOSIN,FINASTERIDE Antibiotic Allergy:GUAIFENESIN Blood Thinner:ASPIRIN Last PVR:362ML'S Todays PVR:194ML'S Manager Card Required: No Allergies codeine [From CODITUSSIN AC] Allergy (Intermediate, Verified 08/28/24 09:43) VOMITING guaifenesin [From CODITUSSIN AC] Allergy (Intermediate, Verified 08/28/24 09:43) VOMITING lactose [LACTOSE] Allergy (Intermediate, Verified 08/28/24 09:43) GI UPSET/DIARRHEA HPI Comments Details: Drew is a pleasant male. He is a patient Dr. Casiano. He seen for the following urologic conditions - neurogenic bladder - elevated PSA - erectile dysfunction Current PVR high proximally 200 cc Remains on medications Will start finasteride Terazosin has caused some degree of dizziness but tolerable Trial bethanechol Plan check cystoscopy Discussed bladder stimulation PSA 11/27 4.5, 08/30 3.6 Neurogenic bladder On initial assessment found to have large postvoid residual of over 1000 cc PSA 11/26 5.1 Creatinine 1.7 Medical therapy finasteride, terazosin Imaging - 11/26 renal bladder ultrasound 80 g prostate GreenLight laser prostatectomy and suprapubic tube placement 05/28 [facility] Medical History Cardiomyopathy Heart murmur GERD (gastroesophageal reflux disease) Chronic renal insufficiency Arthritis High cholesterol HTN (hypertension) Surgical History Hx of total knee replacement History of esophagogastroduodenoscopy (EGD) H/O colonoscopy Hx of bilateral cataract extraction History of open reduction and internal fixation (ORIF) procedure Family History (Updated 12/27/23 @ 11:09 by Janette Marino CMA) Father Diabetes Mother No problems noted. 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 Current occupational exposures/hazards: No Cognitive needs: No Hearing needs: No Vision needs: No Review of Systems Const Denies chills and Denies fever(s) Card Reports no additional complaints and Denies syncope Resp Denies cough GI Denies abdominal pain and Denies heartburn Reports as per HPI and Denies change in libido Neuro Denies syncope Psych Denies change in libido Endo Denies change in libido Physical Exam Const General: cooperative, healthy appearing, comfortable and no acute distress Orientation/consciousness: patient oriented x3 HEENT Face and sinus: Yes normal facial exam Mouth: moist mucous membranes Neck Neck: Yes normal visual inspection, Yes full ROM and Yes trachea midline Chest Chest palpation & inspection: normal inspection of the chest Resp Effort & Inspection: normal respiratory effort, able to speak in complete sentences and no respiratory distress GI Inspection: Yes normal to inspection Back/Spine/Pelvis Cervical Spine: normal cervical lordosis Thoracic/Lumbar Spine: thoracic and lumbar spine normal to inspection Skin General skin exam: no rashes or lesions noted Neuro General: patient oriented x3, gait normal, tone normal and moves all extremities Extrem General: Yes normal to inspection and Yes capillary refill normal Office Procedures Post Void Residual Post Residual Void Post Void Residual (PVR): 194 [id number] Void Residual by ultrasound Assessment & Plan Assessment & Plan (1) Incomplete bladder emptying: Code(s): R33.9 - Retention of urine, unspecified Category: Medical (2) Neurogenic urinary bladder disorder: Code(s): N31.9 - Neuromuscular dysfunction of bladder, unspecified Category: Medical Plan Trial bethanechol Check cystoscopy Orders: Orders AMB Urinalysis Automated Today Z13.9 - Encounter for screening, unspecified Medications: New bethanechol chloride 50 mg PO BID 30 days 60 tabs 1RF N39.0 - Urinary tract infection, site not specified, R33.9 - Retention of urine, unspecified Discontinued finasteride Discontinued Reason: Patient Completed Course 5 mg PO DAILY 90 days 90 tabs 3RF N32.0 - Bladder-neck obstruction Patient Instructions: Imaging studies, laboratory and physical exam results were discussed and reviewed in detail. No major barriers to patient understanding were identified. An opportunity to ask questions regarding the treatment plan was provided. All questions were answered. The patient expressed understanding and agreement with the above treatment plan. The patient is aware they should contact our office by phone for worsening of their current condition or the appearance of new urologic symptoms. Compliance is encouraged with any medications and followup testing that is ordered. It is a privilege to participate in the urologic care of your patient. If you have any questions or concerns regarding treatment for the above conditions, or other urologic issues, please do not hesitate to contact me. The office telephone contact is [phone]. This note is constructed using voice recognition software. While every effort has been made to ensure accuracy food service manager errors may have been included. Yours sincerely, Dr Juan Carlos Sommers MD, [facility] - Urology Providers of Expert, Compassionate Care for the Genitourinary System Coding Level of Care Code Est Pt Level 4 (98865) Diagnoses Incomplete bladder emptying R33.9 Neurogenic urinary bladder disorder N31.9 CPT Codes Post Residual Void - PVR CPT Code: 13260-[id number] Void Residual by ultrasound ([id number])
--- OUTSIDE RECORDS SUMMARY | 2024-08-28 10:58 | XMS_ITS | Clinical Summary ---
Author Organization [facility] Address [address] [facility] [address] [place] [address] Phone Care Team Providers Care Cap Coverer Name Role Phone Jalen Casiano MD Primary Care Provider Allergies No known active allergies Medications metoprolol succinate XL (TOPROL-XL) 200 MG 24 hr tablet Take 200 mg by mouth 1 (one) time each day Do not crush or chew. Active atorvastatin (LIPITOR) 40 MG tablet Take 40 mg by mouth 1 (one) time each day Active omeprazole (PriLOSEC) [address] capsule Take 40 mg by mouth 1 (one) time each day Do not crush or chew. Active traMADol (ULTRAM) 50 MG tablet Take 50 mg by mouth every 6 (six) hours if needed for moderate pain Active sildenafil (VIAGRA) 100 MG tablet Take 100 mg by mouth 1 (one) time each day if needed for erectile dysfunction Active aspirin (ST JIM) 81 MG EC tablet Take 81 mg by mouth 1 (one) time each day Active magnesium sulfate granules Take by mouth Active b complex vitamins capsule Take 1 capsule by mouth 1 (one) time each day Active Cholecalciferol (Vitamin D3) 50 MCG (1999 UT) chewable tablet Chew 1 tablet every other day 30 tablet 3 3 Active hydrALAZINE 25 MG tablet Take 1 tablet (25 mg total) by mouth in the morning and 1 tablet (25 mg total) in the evening. 180 tablet 3 4 07/11/20 25 Active Active Problems Problem Noted Date Diagnosed Date Acute nontraumatic kidney injury 06/18/2023 Hypertensive chronic kidney disease 11/20/2022 Essential (primary) hypertension 11/20/2022 Anemia, not otherwise specified 11/20/2022 Stage 3a chronic kidney disease 11/20/2022 Resolved Problems Problem Noted Date Diagnosed Date Resolved Date Stage 3b chronic kidney disease 06/18/2023 06/18/2023 Encounters Date Type Department Care Team Description 07/11/2024 9:45 AM EST Office Visit [facility] [address] [phone] Richmond Noble MD Stage 3a chronic kidney disease (HCC) (Primary Dx); Hypertensive chronic kidney disease; Other acute kidney failure (HCC) from Last 3 Months Family History Medical History Relation Comments Hypertension Father Hypertension Mother Relation Status Comments Father Mother Social History Tobacco Use Types Packs/Day Years Used Date Smoking Tobacco: Every Day Cigars Smokeless Tobacco: Never Tobacco Cessation:Ready to Q uit: Not Asked; Counseling Given: No Alcohol Use Standard Drinks/Week Comments Yes 0 (1 standard drink = 0.6 oz pur e alcohol) Sex and Gender Information Value Date Recorded Sex Assigned at Not on file Legal Sex Male 3:01 PM EST Gender Identity Not on file Sexual Orientation Not on file Last Filed Vital Signs Vital Sign Reading Time Taken Comments Blood Pressure 142/72 07/11/2024 9:59 AM EST Pulse 58 07/11/2024 9:59 AM EST Temperature - - Respiratory Rate - - Oxygen Saturation - - Inhaled Oxygen Concentration - - Weight 113 kg (248 lb 6.4 oz) 07/11/2024 9:59 AM EST Height - - Body Mass Index - - Plan of Treatment Upcoming Encounters Date Type Department Care Team (Late st Contact Info) Description 2025 3:30 PM EDT Office Visit [facility] [address] [phone] Richmond Noble MD [address] [phone] Health Maintenance Due Date Last Done Comments Pneumococcal Vaccine: 65+ Ye ars (1 of 2 - PCV) 1956 Colorectal Cancer Screening: Annual FOBT 01/13/2000 Colorectal Cancer Screening: Colonoscopy 01/13/2000 Colorectal Cancer Screening: Sigmoidoscopy 01/13/2000 Influenza Vaccine (#1) 2024 Hepatitis B Vaccine Aged Out No longe r eligible based on patient's age to complete this topic Procedures Procedure Name Priority Date/Time Associated Diagnosis Comments VITAMIN D 25 HYDROXY Routine 07/01/2024 3:08 PM EST Other acute kidney failure (HCC) Stage 3a chronic kidney disease (HCC) Hypertensive chronic kidney disease PROTEIN / CREATININE RATIO, URINE Routine 07/01/2024 3:08 PM EST Other acute kidney failure (HCC) Stage 3a chronic kidney disease (HCC) Hypertensive chronic kidney disease RENAL FUNCTION PANEL Routine 07/01/2024 3:08 PM EST Other acute kidney failure (HCC) Stage 3a chronic kidney disease (HCC) Hypertensive chronic kidney disease PTH, INTACT Routine 07/01/2024 3:08 PM EST Other acute kidney failure (HCC) Stage 3a chronic kidney disease (HCC) Hypertensive chronic kidney disease from Last 3 Months Results * Urine Protein / creatinine ratio (07/01/2024 3:08 PM EST) Creatinine, Ur 43.7 Not Estab. mg/dL [facility] Protein, Ur 4.0 Not Estab. mg/dL [facility] Urine Protein/Creatin ine Ratio 92 0 - 200 mg/g creat [facility] Urine (Urine, Clean Catch) 07/01/2024 3:08 PM EST 07/01/2024 us Richmond Noble MD LAB URINE ORDERABLES Final Resu lt [facility] [address] [place] [phone] * Vitamin D 25 hydroxy (07/01/2024 3:08 PM EST) Vitamin D, 25-OH, Total 52.0 30.0 - 100.0 ng/mL [facility] Comment: Vitamin D deficiency has been defined by the [place] of [employer] and an Endocrine Society practice guideline as a level of serum 25-OH vitamin D less than 20 ng/mL (1,2). The Endocrine Society went on to further define vitamin D insufficiency as a level between 21 and 29 ng/mL (2). 1. IOM ([place] of [employer]). 2010. Dietary reference ?? intakes for calcium and D. [place]: The ?? National [employer]. 2. Nemesio MF, Mickie PELAYO, Jeremias PEOPLES, et al. ?? Evaluation, treatment, and prevention of vitamin D ?? deficiency: an Endocrine Society clinical practice ?? guideline. JCEM. 2010; 96(7):1911-30. Blood (Blood, Venous) 07/01/2024 3:08 PM EST 07/01/2024 Richmond Noble MD LAB BLOOD ORDERABLES Final Resu lt [facility] [address] [place] [address] * PTH, intact (07/01/2024 3:08 PM EST) PTH 33 15 - 65 pg/mL [facility] Blood (Blood, Venous) 07/01/2024 3:08 PM EST 07/01/2024 Richmond Noble MD LAB BLOOD ORDERABLES [facility] [address] [place] [address] * (ABNORMAL) Renal function panel (07/01/2024 3:08 PM EST) Glucose 128(H) 70 - 99 mg/dL [facility] BUN 17 8 - 27 mg/dL [facility] Creatinine 1.45(H) 0.76 - 1.27 mg/dL [facility] eGFR CKD-EPI CR 2020 51(L) >59 mL/min/1.7 3 [facility] BUN/Creatinine Ratio 12 10 - 24 [facility] Sodium 139 134 - 144 mmol/L [facility] Potassium 4.5 3.5 - 5.2 mmol/L [facility] Chloride 102 96 - 106 mmol/L [facility] Bicarbonate (CO2) 22 20 - 29 mmol/L [facility] Calcium 9.6 8.6 - 10.2 mg/dL [facility] Phosphorus 3.6 2.8 - 4.1 mg/dL [facility] Albumin 4.5 3.8 - 4.8 g/dL [facility] Blood (Blood, Venous) 07/01/2024 3:08 PM EST 07/01/2024 us Richmond Noble MD LAB BLOOD ORDERABLES Final Resu lt [facility] [address] [place] [phone] from Last 3 Months Insurance [facility] Care Teams Cap Coverer Relationship Specialty Start Date End Date Jalen Casiano MD [address] [place] [phone] PCP - General Family Medicine 08/22/22
== END 2024-08-28 10:17 | disposition home or self-care (01) ==
PROVIDERS: PCP Family Medicine; Visit Provider Urology
DX: R33.9 Retention of urine, unspecified (principal); N31.9 Neuromuscular dysfunction of bladder, unspecified
CPT/HCPCS: 99214

== ENCOUNTER → 2024-08-28 09:41 | Outpatient (BNVA) | payer MEDICARE, SELFPAY | PROVIDERS: PCP Family Medicine; Visit Provider Urology | DX: R33.9 Retention of urine, unspecified (principal); N31.9 Neuromuscular dysfunction of bladder, unspecified | CPT/HCPCS: 51798; 99212 ==

== ENCOUNTER 2024-09-18 08:51 | Outpatient (AMB) | payer MEDICARE, SELFPAY ==
--- NOTE | 2024-09-18 08:58 | A.OFFPC_ITS ---
Vital Signs 09/18/24 09:03 Height 6 ft 5 in Weight 248 lb 2 oz BMI 29.4 BP 120/60 Blood Pressure Location Lt brachial Position Sitting Respiration 14 Pulse 66 Pulse Source Pulse Oximeter Temp 97.8 F Temp Source Oral Pulse Oximetry (%) 97 Oxygen Delivery Method Room Air Intake Visit Reasons: Extended exam with f/u labs and health maint. Intake Note: extended exam Allergies codeine [From CODITUSSIN AC] Allergy (Intermediate, Verified 09/18/24 09:01) VOMITING guaifenesin [From CODITUSSIN AC] Allergy (Intermediate, Verified 09/18/24 09:01) VOMITING lactose [LACTOSE] Allergy (Intermediate, Verified 09/18/24 09:01) GI UPSET/DIARRHEA Tobacco use date assessed: 12/27/23 Dental Screening Dental Screen Date: 10/25/23 HPI Extended exam with f/u labs and health maint. HPI Details 74 y/o male presents for an extended exa m with f/u labs and health maintenance. Labs drawn 08/22/24. Reviewed labs with pt. Ongoing mild anemia. Triglycerides 101. TC 124. LDL 67. HDL low at 37. Creatinine level 1.58. Blood pressure today 120/60, 66p. He is on metoprolol 200mg, amlodipine 10mg daily. Reports ongoing shoulder pain and had seen urgent care for the strain. Had fallen on his L shoulder. No fracture. Difficulty sleeping due to the pain. HPI Comments History of Present Illness Details Documentation assistance for Jalen Casiano MD, was provided by Asim Kumar,? Manager Of Disaster Recovery on 09/18/2024 at 9:38 AM EST. I, Dr. Casiano, have read, observed, and verified documentation. ?? PFS Medical History Cardiomyopathy Heart murmur GERD (gastroesophageal reflux disease) Chronic renal insufficiency Arthritis High cholesterol HTN (hypertension) Surgical History Hx of total knee replacement History of esophagogastroduodenoscopy (EGD) H/O colonoscopy Hx of bilateral cataract extraction History of open reduction and internal fixation (ORIF) procedure Family History Father Diabetes Mother No problems noted. 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 1. Little interest or pleasure in doing things: not at all 2. Feeling down, depressed, or hopeless: not at all 3. Trouble falling or staying asleep, or sleeping too much: not at all 4. Feeling tired or having little energy: not at all 5. Poor appetite or overeating: not at all 6. Feeling bad about yourself - or that you are a failure or have let yourself or your family down: not at all 7. Trouble concentrating on things, such as reading the newspaper or watching television: not at all 8. Moving or speaking so slowly that other people could have noticed. Or the opposite - being so fidgety or restless that you have been moving around a lot more than usual: not at all 9. Thoughts that you would be better off or of hurting yourself in some way: not at all Total score: 0 Depression Screening Interpretation: Negative Depression Screening Done: Yes 96224 - PHQ-9 Billing: Yes Source: Developed by Drs. Yony Mora, Mariaelena Olguin, Anirudh Ferguson and colleagues, with an educational dieter from [employer]. Thrive Questionnaire Date Thrive assessed: 09/18/24 I am a: Patient What is your living situation today?: I have a steady place to live Within the past 12 months, did the food you bought not last and you didn't have the money to get more?: Never true Within the past 12 months, did you worry whether your food would run out before you got money to buy more?: Never true Do you have trouble paying for medicines?: No Do you have trouble getting transportation to medical appointments?: No Do you have trouble paying your heating and electricity bill?: No Do you have trouble taking care of your child, family member or friend?: No Do you have trouble with day-to-day activities such as bathing, preparing meals, shopping, managing finances, etc.?: No Are you currently unemployed and looking for a job?: No Are you interested in more education?: No Please select the resources that you would like help with: None Currently or been in a relationship where the following occur: No concerns reported THRIVE Score: 0 AUDIT C Alcohol Use Questionnaire (AUDIT-C) 1. How often do you have a drink containing alcohol?: 2-4 times a month 2. How many drinks containing alcohol do you have on a typical day when you are drinking?: 3 or 4 3. How often do you have six or more drinks on one occasion?: Never Total Score: 3 Score Reviewed/Action Taken: Yes EMIL-7 AMB Questionnaire EMIL-7 Date EMIL - 7 assessed: 09/18/24 Feeling nervous, anxious, or on edge: 0 = Not at all Not being able to stop or control worryin = Not at all Worrying too much about different things: 0 = Not at all Trouble relaxin = Not at all Being so restless that it is hard to sit still: 0 = Not at all Becoming easily annoyed or irritable: 0 = Not at all Feeling afraid as if something awful might happen: 0 = Not at all Total EMIL-7 score (0-4 normal; 5-9 mild; 10-14 moderate; 15-21 severe): 0 Source: Developed by Drs. Yony Mora, Mariaelena Olguin, Anirudh Ferguson and colleagues, with an educational dieter from [employer]. EMIL-7 Assessment Billing EMIL-7 Assessment Tool: EMIL-7 Assessment 53040 Review of Systems Const Denies chills, Denies fatigue, Denies fever(s), Denies headache(s) and Denies weakness Eyes Denies change in vision ENT Denies dizziness, Denies headache(s), Denies hearing loss, Denies nasal congestion, Denies sinus pain, Denies sinus pressure and Denies sore throat Card Denies chest pain, Denies lightheadedness, Denies dyspnea and Denies other (palpitations) Resp Denies cough, Denies dyspnea and Denies wheezing GI Denies abdominal pain, Denies melena, Denies hematochezia, Denies change in bowel habits, Denies dyspepsia and Denies nausea Denies hematuria and Denies dysuria Musc Denies abnormal gait, Denies myalgias, Denies arthralgias, Denies numbness and Denies tingling Skin/Breast Denies rash, Denies unusual bruising and Denies wounds Neuro Denies abnormal gait, Denies dizziness, Denies headache(s), Denies memory loss, Denies numbness, Denies Sensory deficit (Neuro), Denies tingling and Denies weakness Psych Denies anxiety, Denies depression and Denies memory loss Endo Denies cold intolerance, Denies fatigue, Denies heat intolerance, Denies polydipsia and Denies polyuria Leon/Lymph Denies easy bleeding and Denies easy bruising Aller/Immun Denies wheezing Physical exam (Primary Care) Vital Signs: Last Vital Signs Temp 97.8 F 09/18/24 09:03 Pulse 66 09/18/24 09:03 Resp 14 09/18/24 09:03 BP 120/60 09/18/24 09:03 Pulse Ox 97 09/18/24 09:03 Oxygen Delivery Method Room Air 09/18/24 09:03 BMI result Body Mass Index 29.4 Tobacco/Smoking Status: Tobacco use Status Tobacco use date assessed 12/27/23 09/18/24 09:07 Patient Tobacco Use Status Never used Tobacco 09/18/24 09:07 Tobacco use type Cigar 09/18/24 09:07 e-Cigarette/Vaping Use Never Used 09/18/24 09:07 PHQ-9: PHQ-9 Score PHQ-9: Total score 0 09/18/24 09:29 Depression Screening Interpretation: Negative Thrive Assessment: Date of Thrive Assessment Date Thrive assessed 09/18/24 09/18/24 09:07 Currently or been in a relationship where the following occur: No concerns reported Const General: no acute distress, well developed, alert and awake Nutritional Appearance: well nourished Orientation/consciousness: patient oriented x3 HENMT Head: Yes normocephalic and Yes atraumatic Ears: hearing grossly normal bilaterally and TM's normal bilaterally General nose exam: Normal external nose present and Normal nares present Mouth: Normal oral and palatal mucosa present and moist mucous membranes Teeth and gingiva: dentition normal Throat: Yes posterior oropharynx normal Eyes General: appearance normal, both eyes and all related structures Pupils: Equal, round and reactive pupils present and Pupil accommodation reflex normal EOM: EOMs intact bilaterally Neck Neck: Yes normal visual inspection, Yes no lymphadenopathy and Yes trachea midline Thyroid: Thyroid normal Carotids: no bruits Lymphatic: no lymphadenopathy noted Chest Chest palpation & inspection: normal inspection of the chest Resp Effort & Inspection: normal respiratory effort Auscultation: clear to auscultation bilaterally Cardio Rate: regular rate Rhythm: regular rhythm Heart sounds: S1 normal heart sound present, S2 normal heart sound present, no gallops, no murmurs and no rubs Bruits: no abdominal aortic bruits and no carotid bruits GI Palpation (GI): No Abdominal aortic bruit present, Soft to palpation, nontender, No hepatosplenomegaly present and No Rebound tenderness present Auscultation: normal bowel sounds General: Yes no CVA tenderness Back/Spine/Pelvis Back: no CVA tenderness Cervical Spine: cervical ROM normal and No Cervical spine tenderness Thoracic/Lumbar Spine: thoraco-lumbar ROM normal, No pain with thoraco-lumbar ROM, No thoracic spinal tenderness and No lumbar spinal tenderness Skin Lesions: no lesions Rashes: no rashes Trauma: no lacerations or abrasions Wounds: no wounds Nails: normal Neuro General: patient oriented x3 Cranial nerves: Yes Equal, round and reactive pupils present Cognition (Neuro): normal cognition Gait exam (Neuro): Normal gait present Motor exam (neuro): 5/5 motor strength present throughout Sensory Exam: No Sensory deficit (Neuro) Deep tendon reflexes (DTR's): Right patellar reflex intensity grade: 2+ and Left patellar reflex intensity grade: 2+ Extrem General: Yes normal to inspection and No edema Psych Appearance: grossly normal Affect: normal affect Attitude: cooperative Thought process: Normal thought process present Coding Level of Care Code Est Pt Level 4 (95537) Diagnoses Chronic renal failure N18.9 Mild anemia D64.9 Low HDL (under 40) E78.6 Coronary artery disease I25.10 GERD (gastroesophageal reflux disease) K21.9 Shoulder pain M25.519 Hyperlipidemia E78.5 Hypertension I10 Screening for colon cancer Z12.11 Screening for prostate cancer Z12.5 Adult general medical exam Z00.00 Additional Codes EMIL-7 Assessment Billing - EMIL-7 Assessment Tool: EMIL-7 Assessment 85790 ([id number]) PHQ-9 - 30480 - PHQ-9 Billing: Yes ([id number]) Assessment & Plan Assessment & Plan (1) Chronic renal failure: Code(s): N18.9 - Chronic kidney disease, unspecified Category: Medical Plan: Currently?at?baseline Avoiding?NSAIDs.??Patient?is?on?a?low?dose?aspirin?due?to?coronary?artery?diseas e Follow-up?with?cupola operator insulation?as?recommended (2) Mild anemia: Code(s): D64.9 - Anemia, unspecified Category: Medical Plan: Improving He?can?continue?iron?every?other?day (3) Low HDL (under 40): Code(s): E78.6 - Lipoprotein deficiency Category: Medical Plan: Encouraged?exercise (4) Coronary artery disease: Code(s): I25.10 - Atherosclerotic heart disease of [place] coronary artery without angina pectoris Category: Medical Plan: Elevated?coronary?calcium?score?and?cardiomyopathy Stable Follow-up?with?Cardiology?as?recommended (5) GERD (gastroesophageal reflux disease): Code(s): K21.9 - Gastro-esophageal reflux disease without esophagitis Category: Medical Plan: Continue?PPI Anticipate?symptoms?prevent (6) Shoulder pain: Code(s): M25.519 - Pain in unspecified shoulder Category: Medical Plan: Patient?fell?onto?left?shoulder.??Has?jae e?pain?and?stiffness?with?some?decreased?range?of?motion.??He?had?gone?to?the?ur gent?care.??No?fracture. Improving?on?its?own?so?far. Encouraged?exercises?to?maintain?range?motion Will?give?him?medication?for?pain - can?not?take?NSAIDs?due?to?renal?function.??Will?give?him?a?short?course?of?Perc ocet?and?also?some?cyclobenzaprine.??Do?not?use?both?at?the?same?time.??Risks/be nefits?discussed (7) Hyperlipidemia: Code(s): E78.5 - Hyperlipidemia, unspecified Category: Medical Plan: HDL?mildly?low LDL?cholesterol?is?controlled?on?atorvastatin. Continue?atorvastatin?as?prescribed Increase?exercise (8) Hypertension: Code(s): I10 - Essential (primary) hypertension Category: Medical Plan: Blood?pressure?is?controlled.??Goal?is?less?than?130/80 Continue?current?medication?regimen (9) Screening for colon cancer: Code(s): Z12.11 - Encounter for screening for malignant neoplasm of colon Category: Medical Plan: Patient?says?his?last?colonoscopy? was?probably?about?8?years?and?he?thinks?this?was?with??Jhoan. Will?request?notes (10) Screening for prostate cancer: Code(s): Z12.5 - Encounter for screening for malignant neoplasm of prostate Category: Medical Plan: PSA?was?within?normal?range Already?followed?by?Urology - follow-up?as?recommended (11) Adult general medical exam: Code(s): Z00.00 - Encounter for general adult medical examination without abnormal findings Category: Medical Plan: 74-year-old?male?presents?for?extended?exam. Encouraged?healthy?diet?with?active?lifestyle?and?plenty?of?exercise Medications: New oxycodone-acetaminophen 5-325 mg (Percocet) Partial Fill upon patient request. 1 tab PO Q8H 3 days PRN 9 tabs 0RF pain cyclobenzaprine 10 mg PO TID 10 days PRN 30 tabs 0RF muscle spasm
[2024-09-18 09:03] VITALS: BP 120/60; PULSE 66; RESP 14; TEMP 36.6; O2SAT 97; BMI 29.4
--- OUTSIDE RECORDS SUMMARY | 2024-09-18 09:11 | XMS_ITS | Clinical Summary ---
Author Organization [facility] Address [address] [facility] [address] [place] [address] Phone Care Team Providers Care Distribution Collection Operator Name Role Phone Jalen Casiano MD Primary [...] Office Visit [facility] [address] [phone] Richmond Noble MD Stage 3a chronic kidney [...] Office Visit [facility] [address] [phone] Richmond Noble MD [address] [phone] Health Maintenance Due Date Last Done Comments [...] Creatinine, Ur 43.7 Not Estab. mg/dL [facility] Protein, Ur 4.0 Not Estab. mg/dL [facility] Urine Protein/Creatin ine Ratio 92 0 - 200 mg/g creat [facility] Urine (Urine, Clean Catch) 07/01/2024 3:08 PM EST 07/01/2024 us Richmond Noble MD LAB URINE ORDERABLES Final Resu lt [facility] [address] [place] [phone] * Vitamin D 25 hydroxy (07/01/2024 3:08 PM EST) Vitamin D, 25-OH, Total 52.0 30.0 - 100.0 ng/mL [facility] Comment: Vitamin D deficiency has been defined by the [employer] of [employer] and an Endocrine Society practice guideline as a level of serum 25-OH vitamin D less than 20 ng/mL (1,2). The Endocrine Society went on to further define vitamin D insufficiency as a level between 21 and 29 ng/mL (2). 1. IOM ([employer]ent[employer] of Medicine). 2010. Dietary reference ?? intakes for calcium and D. [place]: The ?? National [employer]. 2. Nemesio MF, Mickie PELAYO, Jeremias PEOPLES, et al. ?? Evaluation, treatment, and prevention of vitamin D ?? deficiency: an Endocrine Society clinical practice ?? guideline. JCEM. 2010; 96(7):1911-30. Blood (Blood, Venous) 07/01/2024 3:08 PM EST 07/01/2024 Richmond Noble MD LAB BLOOD ORDERABLES Final Resu lt [facility] [address] [place] [phone] * PTH, intact (07/01/2024 3:08 PM EST) PTH 33 15 - 65 pg/mL [facility] Blood (Blood, Venous) 07/01/2024 3:08 PM EST 07/01/2024 Richmond Noble MD LAB BLOOD ORDERABLES Final Resu lt [facility] [address] [place] [address] * (ABNORMAL) Renal function panel (07/01/2024 3:08 PM EST) Glucose 128(H) 70 - 99 mg/dL [facility] BUN 17 8 - 27 mg/dL [facility] Creatinine 1.45(H) 0.76 - 1.27 mg/dL [facility] eGFR CKD-EPI CR 2020 51(L) >59 mL/min/1.7 3 [facility] BUN/Creatinine Ratio 12 10 - 24 [facility] Sodium 139 134 - 144 mmol/L [facility] Potassium 4.5 3.5 - 5.2 mmol/L [facility] Chloride 102 96 - 106 mmol/L [facility] Bicarbonate (CO2) 22 20 - 29 mmol/L [facility] Calcium 9.6 8.6 - 10.2 mg/dL [facility] Phosphorus 3.6 2.8 - 4.1 mg/dL [facility] Albumin 4.5 3.8 - 4.8 g/dL [facility] Blood (Blood, Venous) 07/01/2024 3:08 PM EST 07/01/2024 us Richmond Noble MD LAB BLOOD ORDERABLES Final Resu lt [facility] [address] [place] [phone] from Last 3 Months Insurance [facility] Care Teams Distribution Collection Operator Relationship Specialty Start Date End Date Jalen Casiano MD [address] [place] [id number] PCP - General Family Medicine 08/22/22
== END 2024-09-18 09:58 | disposition home or self-care (01) ==
PROVIDERS: PCP Family Medicine; Visit Provider Family Medicine
DX: I12.9 Hypertensive chronic kidney disease with stage 1 through stage 4 chronic kidney disease, or unspecified chronic kidney disease (principal); N18.9 Chronic kidney disease, unspecified; D64.9 Anemia, unspecified; E78.6 Lipoprotein deficiency; I25.10 Atherosclerotic heart disease of native coronary artery without angina pectoris; K21.9 Gastro-esophageal reflux disease without esophagitis; M25.519 Pain in unspecified shoulder; E78.5 Hyperlipidemia, unspecified; Z12.11 Encounter for screening for malignant neoplasm of colon; Z12.5 Encounter for screening for malignant neoplasm of prostate

== ENCOUNTER → 2024-09-18 08:51 | Outpatient (BNVA) | payer MEDICARE, SELFPAY | PROVIDERS: PCP Family Medicine; Visit Provider Family Medicine | DX: I12.9 Hypertensive chronic kidney disease with stage 1 through stage 4 chronic kidney disease, or unspecified chronic kidney disease (principal); N18.9 Chronic kidney disease, unspecified; D64.9 Anemia, unspecified; E78.6 Lipoprotein deficiency; I25.10 Atherosclerotic heart disease of native coronary artery without angina pectoris; K21.9 Gastro-esophageal reflux disease without esophagitis; E78.5 Hyperlipidemia, unspecified | CPT/HCPCS: 96127; 99212 ==

== ENCOUNTER 2024-10-30 08:49 | Outpatient (AMB) | payer MEDICARE, SELFPAY ==
--- NOTE | 2024-10-30 09:02 | A.OFFVIS_ITS ---
Intake Visit Reasons: cysto Intake Note: Patient is present for Cystoscopy Urology Medication:SILDENAFIL,TERAZOSIN,BETHANECHOL CHLORIDE Antibiotic Allergy:NONE Blood Thinner:ASPIRIN Lot:[id number] Exp:12/12/2026 Deck[employer] Fishing Vessel Required: No Allergies codeine [From CODITUSSIN AC] Allergy (Intermediate, Verified 10/30/24 09:04) VOMITING guaifenesin [From CODITUSSIN AC] Allergy (Intermediate, Verified 10/30/24 09:04) VOMITING lactose [LACTOSE] Allergy (Intermediate, Verified 10/30/24 09:04) GI UPSET/DIARRHEA HPI Comments Details: Drew is a pleasant male. He is a patient Dr. Casiano. He seen for the following urologic conditions - neurogenic bladder - elevated PSA - erectile dysfunction Here for cystoscopy Had trial of bethanechol Prior discussion regarding InterStim Prior high PVR proximally 200 cc Open bladder neck Grade 3 trabeculations with cellules and small diverticula Continue on bethanechol PSA 11/27 4.5, 08/30 3.6 Neurogenic bladder On initial assessment found to have large postvoid residual of over 1000 cc PSA 11/26 5.1 Creatinine 1.7 Medical therapy finasteride, terazosin Imaging - 11/26 renal bladder ultrasound 80 g prostate GreenLight laser prostatectomy and suprapubic tube placement 05/28 [facility] Medical History Cardiomyopathy Heart murmur GERD (gastroesophageal reflux disease) Chronic renal insufficiency Arthritis High cholesterol HTN (hypertension) Surgical History Hx of total knee replacement History of esophagogastroduodenoscopy (EGD) H/O colonoscopy Hx of bilateral cataract extraction History of open reduction and internal fixation (ORIF) procedure Family History Father Diabetes Mother No problems noted. 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 Current occupational exposures/hazards: No Cognitive needs: No Hearing needs: No Vision needs: No Review of Systems Const Denies chills and Denies fever(s) Card Reports no additional complaints and Denies syncope Resp Denies cough GI Denies abdominal pain and Denies heartburn Reports as per HPI and Denies change in libido Neuro Denies syncope Psych Denies change in libido Endo Denies change in libido Physical Exam Const General: cooperative, healthy appearing, comfortable and no acute distress Orientation/consciousness: patient oriented x3 HEENT Face and sinus: Yes normal facial exam Mouth: moist mucous membranes Neck Neck: Yes normal visual inspection, Yes full ROM and Yes trachea midline Chest Chest palpation & inspection: normal inspection of the chest Resp Effort & Inspection: normal respiratory effort, able to speak in complete sentences and no respiratory distress GI Inspection: Yes normal to inspection Back/Spine/Pelvis Cervical Spine: normal cervical lordosis Thoracic/Lumbar Spine: thoracic and lumbar spine normal to inspection Skin General skin exam: no rashes or lesions noted Neuro General: patient oriented x3, gait normal, tone normal and moves all extremities Extrem General: Yes normal to inspection and Yes capillary refill normal Office Procedures Cystoscopy Consent Discussed risk and benefit or proposed procedure with the patient. Information consent for procedure given to the patient. Discussed technical aspects, risks, benefits and alternatives in full. Addressed all of the patient's questions and concerns regarding the procedure. The patient demonstrated knowledge and understanding. They wish to proceed with this procedure. Preparation The patient was prepped in the usual manner. A nursing unit manager was present and in the room. Genitalia was prepped with betadine solution in a sterile manner. Lidocaine Jelly 2% was placed into the urethra and 16Fr flexible Olympus cystoscope was inserted into the meatus after adequate lubrication. Procedure Cystoscopy performed using a disposable Urovue digital 16 Wallisian cystoscope. Meatus circumcised Urethra anterior and posterior urethra normal Prostatic Urethra unremarkable - open bladder neck Bladder examination with retroflexion of cystoscope Bladder Orifices normal shape and position Bladder Capacity Normal Trabeculations Grade 0 Cellule Formation None Diverticulum Formation None Mucosal Erythema None Bladder Tumor None [id number] DISPOSABLE SCOPE URO-G FLEXIBLE SCOPE Procedure code (CPT) selection complete Office Meds lidocaine HCl 2 % mucosal jelly in applicator Performing Provider: Juan Carlos Sommers MD [place] [facility] [place] [facility] Administered by: Lee Chavez LPN on 10/30/24 09:27 Dose Route Admin Location Dispensed Lot Number Expiration Date NDC Licensed Prosthetist/Orthotist 10 mL intra-urethral 10 mL nitrofurantoin monohydrate/macrocrystals 100 mg capsule Performing Provider: Juan Carlos Sommers MD [place] [facility] [place] [facility] Administered by: Lee Chavez LPN on 10/30/24 09:27 Dose Route Admin Location Dispensed Lot Number Expiration Date NDC Licensed Prosthetist/Orthotist 100 mg PO 1 cap Results AMB Urinalysis, Automated UA Leukoctes 0 [place]/uL Last Edit by MARIA FERNANDA Nicholas on 10/30/24 09:22 UA Nitrite Negative Last Edit by MARIA FERNANDA Nicholas on 10/30/24 09:22 UA Urobilinogen 3.5 mg/dL Last Edit by MARIA FERNANDA Nicholas on 10/30/24 09:2 2 UA Protein 0 mg/dL Last Edit by MARIA FERNANDA Nicholas on 10/30/24 09:22 UA pH 6.0 Last Edit by MARIA FERNANDA Nicholas on 10/30/24 09:22 UA Blood 0 Jose/uL Last Edit by MARIA FERNANDA Nicholas on 10/30/24 09:22 UA Specific [place] 1.015 Last Edit by MARIA FERNANDA Nicholas on 10/30/24 09: 22 UA Ketone Negative Last Edit by MARIA FERNANDA Nicholas on 10/30/24 09:22 UA Bilirubin 0 mg/dL Last Edit by MARIA FERNANDA Nicholas on 10/30/24 09:22 UA Glucose 0 mg/dL Last Edit by MARIA FERNANDA Nicholas on 10/30/24 09:22 AMB Urinalysis, Automated UA Leukoctes 0 [place]/uL Last Edit by MARIA FERNANDA Nicholas on 10/30/24 10:37 UA Nitrite Negative Last Edit by MARIA FERNANDA Nicholas on 10/30/24 10:37 UA Urobilinogen 3.5 mg/dL Last Edit by MARIA FERNANDA Nicholas on 10/30/24 10:3 7 UA Protein 0 mg/dL Last Edit by MARIA FERNANDA Nicholas on 10/30/24 10:37 UA pH 6.0 Last Edit by MARIA FERNANDA Nicholas on 10/30/24 10:37 UA Blood 0 [place]/uL Last Edit by MARIA FERNANDA Nicholas on 10/30/24 10:37 UA Specific [place] 1.015 Last Edit by MARIA FERNANDA Nicholas on 10/30/24 10: 37 UA Ketone Negative Last Edit by MARIA FERNANDA Nicholas on 10/30/24 10:37 UA Bilirubin 0 mg/dL Last Edit by MARIA FERNANDA Nicholas on 10/30/24 10:37 UA Glucose 0 mg/dL Last Edit by MARIA FERNANDA Nicholas on 10/30/24 10:37 Results Reviewed Results Reviewed: Laboratory Last Values Urine pH (Auto) 6.0 10/30/24 10:36 Specific [place] (Auto) 1.015 10/30/24 10:36 Urine Protein (Auto) 0 mg/dL 10/30/24 10:36 Glucose (UA)(Auto) 0 mg/dL 10/30/24 10:36 Urine Ketones (Auto) Negative 10/30/24 10:36 Urine Blood (Auto) 0 Jose/uL 10/30/24 10:36 Urine Nitrite (Auto) Negative 10/30/24 10:36 Urine Bilirubin (Auto) 0 mg/dL 10/30/24 10:36 Urine Urobilinogen (Auto) 3.5 mg/dL 10/30/24 10:36 Leukocyte Esterase (Auto) 0 [place]/uL 10/30/24 10:36 Assessment & Plan Assessment & Plan (1) Erectile dysfunction: Code(s): N52.9 - Male erectile dysfunction, unspecified Category: Medical (2) Incomplete bladder emptying: Code(s): R33.9 - Retention of urine, unspecified Category: Medical (3) Neurogenic urinary bladder disorder: Code(s): N31.9 - Neuromuscular dysfunction of bladder, unspecified Category: Medical Plan Continue bethanechol Orders: Orders AMB Urinalysis Automated 10/30/24 Z13.9 - Encounter for screening, unspecified AMB Cystoscopy 10/30/24 N31.9 - Neuromuscular dysfunction of bladder, unspecified, R33.9 - Retention of urine, unspecified, N39.490 - Overflow incontinence Medications: Changed From bethanechol chloride 50 mg PO BID 30 days 60 tabs 1RF R33.9 - Retention of urine, unspecified, N39.0 - Urinary tract infection, site not specified To bethanechol chloride 50 mg PO BID 180 tabs 1RF 90 days R33.9 - Retention of urine, unspecified, N39.0 - Urinary tract infection, site not specified Refilled 2 terazosin 5 mg PO BEDTIME 90 caps 1RF 90 days N40.1 - Benign prostatic hyperplasia with lower urinary tract symptoms, R35.0 - Frequency of micturition Patient Instructions: This note is constructed using voice recognition software. While every effort has been made to ensure accuracy vegetable farmworker errors may have been included. Imaging studies, laboratory and physical exam results were discussed and reviewed in detail. No major barriers to patient understanding were identified. An opportunity to ask questions regarding the treatment plan was provided. All questions were answered. The patient expressed understanding and agreement with the above treatment plan. The patient is aware they should contact our office by phone for worsening of their current condition or the appearance of new urologic symptoms. Compliance is encouraged with any medications and followup testing that is ordered. It is a privilege to participate in the urologic care of your patient. If you have any questions or concerns regarding treatment for the above conditions, or other urologic issues, please do not hesitate to contact me. The office telephone contact is [phone]. Sincerely, Dr Juan Carlos Sommers MD, [facility] - Urology Compassionate Specialist Care for the Genitourinary System Coding Level of Care Code Est Pt Level 3 (67666) Complex EM visit Add On G2211 Diagnoses Erectile dysfunction N52.9 Incomplete bladder emptying R33.9 Neurogenic urinary bladder disorder N31.9 CPT Codes Cystoscopy - CPT: 63741-[id number] ([id number])
== END 2024-10-30 09:47 | disposition home or self-care (01) ==
LOC: HO.HUSH 08:51
PROVIDERS: PCP Family Medicine; Visit Provider Urology
DX: N31.9 Neuromuscular dysfunction of bladder, unspecified (principal); R33.9 Retention of urine, unspecified; N39.490 Overflow incontinence; Z13.9 Encounter for screening, unspecified
CPT/HCPCS: 52000

== ENCOUNTER → 2024-10-30 08:49 | Outpatient (BNVA) | payer MEDICARE, SELFPAY | PROVIDERS: PCP Family Medicine; Visit Provider Urology | DX: N40.1 Benign prostatic hyperplasia with lower urinary tract symptoms (principal); N52.9 Male erectile dysfunction, unspecified; N31.9 Neuromuscular dysfunction of bladder, unspecified; R35.0 Frequency of micturition; R33.8 Other retention of urine | CPT/HCPCS: 52000; 81003 ==

== ENCOUNTER 2024-12-11 07:30 | Outpatient (REF) | payer MEDICARE, SELFPAY ==
--- OUTSIDE RECORDS SUMMARY | 2024-12-11 07:33 | XMS_ITS | Clinical Summary ---
Author Organization [facility] Address [address] [facility] [address] [place] [address] Phone Care Team Providers Care Composite Bond Worker Name Role Phone Jalen Casiano MD Primary [...] Encounters Date Type Department Care Team Description 12/01/2024 Orders Only [facility] [address] [phone] Richmond Noble MD Hypertensive chronic kidney disease; Stage 3a chronic kidney disease (HCC); Other acute kidney failure (HCC) from Last [...] Office Visit [facility] [address] [phone] Richmond Noble MD [address] [phone] Health Maintenance Due Date Last Done Comments Pneumococcal Vaccine: 50+ Ye ars (1 of 2 - PCV) 1970 Colorectal Cancer Screening: Annual FOBT 01/13/2000 Colorectal Cancer Screening: Colonoscopy 01/13/2000 Colorectal Cancer Screening: Sigmoidoscopy 01/13/2000 Influenza Vaccine (Season Ended) 2025 Hepatitis B Vaccine Aged Out No longe r eligible based on patient's age to complete this topic Insurance [facility] Care Teams Composite Bond Worker Relationship Specialty Start Date End Date Jalen Casiano MD [address] [address] PCP - General Family Medicine 08/22/22
[2024-12-11 11:41] LABS: Basophils Absolute Auto 0.1 X10*3/uL (0.0-0.2); Basophils Percent Auto 1.2 % (0-2); Eosinophils Absolute Auto 0.3 X10*3/uL (0.0-0.4); Eosinophils Percent Auto 7.8 % (0-4); Hematocrit 36.7 % (42.0-52.0); Hemoglobin 12.3 g/dl (14.0-18.0); Imm Gran Abs Auto 0.02 X10*3/uL (0.00-0.03); Imm Gran Pct Auto 0.5 % (0.0-0.4); Lymphocytes Absolute Auto 1.3 X10*3/uL (1.2-4.9); MANUAL DIFF FLAG SCAN; Mean Corpuscular HGB Conc 33.5 g/dl (31.0-36.0); Mean Corpuscular Hemoglobin 29.6 pg (27.0-33.0); Mean Corpuscular Volume 88.2 fL (80.0-98.0); Mean Platelet Volume 12.2 fL (9.4-12.4); Monocytes Absolute Auto 0.9 X10*3/uL (0.1-1.2); Monocytes Percent Auto 22.4 % (2-11); Neutrophils Absolute Auto 1.5 x10*3/uL (2.0-8.3); Neutrophils Percent Auto 36.1 % (45-73); Platelet Count 161 X10*3/uL (160-400); Red Blood Count 4.16 X10*6/uL (4.60-5.80); Red Cell Distribution Width 13.4 % (11.0-16.0); SCAN SMEAR FLAG 1; White Blood Count 4.1 X10*3/uL (4.8-10.8)
[2024-12-11 11:52] LABS: Anion Gap 12 (12-20); Blood Urea Nitrogen 21 mg/dL (9-16); Calcium 9.3 mg/dL (8.4-10.2); Carbon Dioxide 25 mmol/L (22-29); Chloride 106 mmol/L (96-108); Estimated Glomerular Filt Rate 45; Glucose Random 95 mg/dL (60-115); Potassium 4.2 mmol/L (3.3-5.1); Sodium 139 mmol/L (135-145)
[2024-12-11 11:58] LABS: Appearance Urine Clear; Color Urine Yellow; Glucose Urine UA Negative (Negative); Leukocyte Esterase Urine Negative (Negative); Nitrite Urine Negative (Negative); PH 6.5 (5.0-9.0); Urine Blood Negative (Negative); Urine Ketones Negative (Negative); Urine Protein Negative (Neg-Trace)
[2024-12-11 12:03] LABS: SLIDE REVIEW VERIFIED
[2024-12-11 12:12] LABS: Parathyroid Hormone Intact 40.9 pg/mL (8.7-77.1)
[2024-12-11 12:14] LABS: Vitamin D 25-OH Total 72.4 ng/mL (>30)
[2024-12-11 13:07] LABS: Creatinine Urine 41.92 mg/dL; Total Protein Urine Random < 7 mg/dL (<12)
== END 2024-12-11 07:31 | disposition home or self-care (01) ==
LOC: HO.WFDLDS 07:30
PROVIDERS: Internal Medicine Nephrology; Visit Provider Family Medicine
DX: Z00.00 Encounter for general adult medical examination without abnormal findings (principal); N18.31 Chronic kidney disease, stage 3a; I12.9 Hypertensive chronic kidney disease with stage 1 through stage 4 chronic kidney disease, or unspecified chronic kidney disease; N17.8 Other acute kidney failure
CPT/HCPCS: 36415; 80048; 81003; 82306; 82570; 83970; 84156; 85025

== ENCOUNTER 2024-12-19 11:16 | Outpatient (AMB) | payer MEDICARE, SELFPAY ==
[2024-12-19 11:26] VITALS: BMI 29.4
--- NOTE | 2024-12-19 11:26 | A.OFFVIS_ITS ---
Vital Signs 12/19/24 11:26 Height 6 ft 5 in Weight 248 lb BMI 29.4 Intake Visit Reasons: New prob- Left shoulder pain/injury Intake Note: Sami is a 74 year old male who presents today for an evaluation of left shoulder pain. Patient was seen by his PCP on 09/18/24 with complaints of left shoulder pain, stiffness with some decreased ROM. He was seen at an urgent care and was told no fracture. Today patient reports his ROM is better, at time with pain, states he has clicking in his shoulder, radiating sharp pain to his bicep and at times down his forearm. 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 Denies numbness or tingling in hand. No injury he can recall. Hx of B/L replacement with Dr Leal. Allergies codeine [From CODITUSSIN AC] Allergy (Intermediate, Verified 12/19/24 11:28) VOMITING guaifenesin [From CODITUSSIN AC] Allergy (Intermediate, Verified 12/19/24 11:28) VOMITING lactose [LACTOSE] Allergy (Intermediate, Verified 12/19/24 11:28) GI UPSET/DIARRHEA HPI HPI New prob- Left shoulder pain/injury: Details: 74-year-old gentleman presents to the office today for left shoulder pain. He denies specific injury but states the pain is present when he is performing overhead reaching or lifting activities. He feels the pain radiate down to the deltoid region. He has had no treatment to date. [facility] Medical History Cardiomyopathy Heart murmur GERD (gastroesophageal reflux disease) Chronic renal insufficiency Arthritis High cholesterol HTN (hypertension) Surgical History Hx of total knee replacement History of esophagogastroduodenoscopy (EGD) H/O colonoscopy Hx of bilateral cataract extraction History of open reduction and internal fixation (ORIF) procedure Family History Father Diabetes Mother No problems noted. 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 Full range of motion in all planes. Negative Vann negative cross-body abduction. 5/5 rotator cuff strength. Neurovascularly intact. Results Reviewed Results Reviewed: X-rays of the left shoulder obtained in the office today and reviewed by me do show a type 2 acromion. Assessment & Plan Assessment & Plan (1) Left shoulder tendonitis: Code(s): M77.8 - Other enthesopathies, not elsewhere classified Category: Medical Plan: I recommend a course of conservative management with physical therapy and steroid injections as needed. He would hold off on an injection today. I did place an order for physical therapy to work on range of motion rotator cuff and periscapular stabilization. If symptoms persist or worsen he will contact our office to discuss steroid injection otherwise he will follow up as needed. Orders: Orders PT Evaluation and Treatment Today M77.8 - Other enthesopathies, not elsewhere classified XR shoulder LT min 2V Today M25.512 - Pain in left shoulder Coding Level of Care Code Est Pt Level 3 (95745) Complex EM visit Add On G2211 Diagnoses Left shoulder tendonitis M77.8
--- OUTSIDE RECORDS SUMMARY | 2024-12-19 11:38 | XMS_ITS | Clinical Summary ---
Author Organization [facility] Address [address] [facility] [address] [place] [address] Phone Care Team Providers Care Medical Records Coder Name Role Phone Jalen Casiano MD Primary [...] 12/01/2024 Orders Only [facility] [address] [phone] Richmond Noble MD Hypertensive chronic kidney disease; [...] Office Visit [facility] [address] [phone] Richmond Noble MD [address] [phone] Health Maintenance Due Date Last [...] Procedure Name Priority Date/Time Associated Diagnosis Comments PROTEIN,TOTAL,URINE Routine 12/11/2024 1 1:41 AM EDT CREATININE, URINE, RANDOM Routine 12/11/2024 11:41 AM EDT VITAMIN D 25 HYDROXY Routine 12/11/2024 11:33 AM EDT Hypertensive chronic kidney disease Stage 3a chronic kidney disease (HCC) Other acute kidney failure (HCC) PTH, INTACT (HC) Routine 12/11/2024 11:2 5 AM EDT from Last 3 Months Results * Protein, Total, Urine (12/11/2024 11:41 AM EDT) Protein Urine Random <7 <12 mg/dL See order comments 12/11/2024 11:4 1 AM EDT 12/11/2024 11:41 AM EDT us Richmond Noble MD LAB URINE ORDERABLES Final Resu lt [place] See order comments [place] [address] * Creatinine, urine, random (12/11/2024 11:41 AM EDT) Creatinine, Urine 41.92 mg/dL See order comments 12/11/2024 11:4 1 AM EDT 12/11/2024 11:41 AM EDT us Richmond Noble MD LAB URINE ORDERABLES Final Resu lt [place] See order comments [place] [address] * Vitamin D 25 hydroxy (12/11/2024 11:33 AM EDT) Vitamin D, 25-Hydroxy 72.4 >30 ng/mL See order comments Comment: Health Based Reference Values* < 20 ??ng/mL ??Deficient 20-30 ng/mL ??Insufficient > 30 ??ng/mL ??Sufficient *Nemesio LAI. N Engl J Med. 2007;357:266-280 There is no well-established upper level of normal vitamin D levels. Some laboratories use 50 ng/mL as an upper limit of normal. However, toxicity is patient-dependent and may occur at any level. Careful correlation with the patient's presentation is necessary and, if there is concern for vitamin D toxicity, treatment should be considered irrespective of the serum level. Care must be taken in interpreting Vitamin D results from different laboratories and methodologies. ??Published data demonstrated that results from patients undergoing hemodialysis may show a negative bias when tested with various automated 25-OH vitamin D assays when compared to LC-MS/MS. When testing samples from patients whose predominant form of Vitamin D is Vitamin D2, such as patients receiving Vitamin D2 supplementation, results that are subtherapeutic should be confirmed with another method such as LC-MS/MS. Blood (Blood, Venous) 12/11/2024 11:33 AM EDT 12/11/2024 11:33 AM EDT us Richmond Noble MD LAB BLOOD ORDERABLES Final Resu lt [place] See order comments [place] [address] * PTH, Intact (12/11/2024 11:25 AM EDT) Parathyroid Hormone, Intact 40.9 8.7 - 77.1 pg/mL See order comments 12/11/2024 11:2 5 AM EDT 12/11/2024 11:25 AM EDT us Richmond Noble MD LAB [id number] LICITED RESULTS Final Result [place] See order comments [place] [address] from Last 3 Months Insurance [facility] Care Teams Medical Records Coder Relationship Specialty Start Date End Date Jalen Casiano MD [address] [address] PCP - General Family Medicine 08/22/22
== END 2024-12-19 12:00 | disposition home or self-care (01) ==
LOC: HO.HOS 11:16
PROVIDERS: PCP Family Medicine; Visit Provider Physician Assistant
DX: M77.8 Other enthesopathies, not elsewhere classified (principal)
CPT/HCPCS: 99213; G2211

== ENCOUNTER → 2024-12-19 11:18 | Outpatient (BNV) | payer MEDICARE, SELFPAY | PROVIDERS: Visit Provider Radiology Diagnostic Radiology | DX: M25.512 Pain in left shoulder (principal) | CPT/HCPCS: 73030 ==

== ENCOUNTER 2024-12-19 12:35 | Outpatient (REF) | payer MEDICARE, SELFPAY ==
--- NOTE | ~2024-12-19 | XR_ITS ---
EXAMINATION: XR SHOULDER, LEFT CLINICAL INFORMATION: M25.512 - Pain in left shoulder COMPARISON: 04/02/2014. TECHNIQUE: Three views of the left shoulder. FINDINGS: Normal bone mineralization. No fracture, dislocation, or suspicious bone lesion. Normal alignment. The glenohumeral joint is normal. The AC joint is normal. There is a type II acromion. No undersurface spurring. The subacromial space is preserved. Remainder of the soft tissue and bony structures appear normal. XR/XR shoulder LT min 2V IMPRESSION: Normal left shoulder. Electronically signed by: Mike Rondon MD 12/19/2024 12:57 PM EDT
--- OUTSIDE RECORDS SUMMARY | 2024-12-22 12:54 | XMS_ITS | Clinical Summary ---
Author Organization [facility] Address [address] [facility] [address] [place] [address] Phone Care Team Providers Care Radiographer Angiogram Name Role Phone Jalen Casiano MD Primary [...] 12/01/2024 Orders Only [facility] [address] [phone] Richmond Noble MD Hypertensive chronic kidney disease; [...] Office Visit [facility] [address] [phone] Richmond Noble MD [address] [phone] Health Maintenance Due Date Last [...] MD LAB URINE ORDERABLES Final Resu lt [place] See order comments [place] [address] * Creatinine, urine, random (12/11/2024 11:41 AM EDT) Creatinine, Urine 41.92 mg/dL See order comments 12/11/2024 11:4 1 AM EDT 12/11/2024 11:41 AM EDT us Richmond Noble MD LAB URINE ORDERABLES Final Resu lt [place] See order comments [place] [address] * Vitamin D 25 hydroxy (12/11/2024 11:33 [...] MD LAB BLOOD ORDERABLES Final Resu lt [place] See order comments [place] [address] * PTH, Intact (12/11/2024 11:25 AM EDT) Parathyroid Hormone, Intact 40.9 8.7 - 77.1 pg/mL See order comments 12/11/2024 11:2 5 AM EDT 12/11/2024 11:25 AM EDT us Richmond Noble MD LAB [id number] LICITED RESULTS Final Result [place] See order comments [place] [address] from Last 3 Months Insurance [facility] [employer] Care Teams Radiographer Angiogram Relationship Specialty Start Date End Date Jalen Casiano MD [address] [address] PCP - General Family Medicine 08/22/22
== END 2024-12-19 12:36 | disposition home or self-care (01) ==
LOC: HO.HOSX 12:35
PROVIDERS: Visit Provider Physician Assistant
DX: M25.512 Pain in left shoulder (principal); M25.612 Stiffness of left shoulder, not elsewhere classified
CPT/HCPCS: 73030; 99212

== ENCOUNTER 2025-01-06 09:25 | Outpatient (AMB) | payer MEDICARE, SELFPAY ==
--- NOTE | 2025-01-06 09:28 | MHC.PC.OV ---
Vital Signs 01/06/25 09:34 Height 6 ft 5 in Weight 244 lb 8 oz BMI 29.0 BP 124/62 Blood Pressure Location Rt brachial Position Sitting Respiration 16 Pulse 64 Pulse Source Pulse Oximeter Temp 97.7 F Temp Source Oral Pulse Oximetry (%) 98 Oxygen Delivery Method Room Air Intake Visit Reasons: f/u chronic conditions - see comments Intake Note: patient is scheduled follow-up chronic condition patient has no concern at this time. Patient also states that the medicaton that he's take for bladder is giving him side affects like cold sweat,dizzness that last for about hour. Allergies codeine [From CODITUSSIN AC] Allergy (Intermediate, Verified 12/19/24 11:28) VOMITING guaifenesin [From CODITUSSIN AC] Allergy (Intermediate, Verified 12/19/24 11:28) VOMITING lactose [LACTOSE] Allergy (Intermediate, Verified 12/19/24 11:28) GI UPSET/DIARRHEA Medication List - Last Reconciled 01/06/25 by Jalen Casiano MD amlodipine 10 mg PO DAILY 30 days aspirin 81 mg PO DAILY atorvastatin 40 mg PO DAILY 90 days bethanechol chloride 50 mg PO BID 90 days blood pressure monitor Automatic, Digital. Dx: I10. Daily As directed, 999 days/lifetime cholecalciferol (vitamin D3) 50 mcg PO DAILY 30 days cyclobenzaprine 10 mg PO TID PRN 10 days ferrous sulfate 325 mg PO Q OTHER DAY 30 days hydralazine 10 mg PO TID 30 days metoprolol succinate ER 200 mg PO DAILY 90 days omeprazole 40 mg PO QAM 90 days sildenafil 100 mg PO DAILY PRN 30 days terazosin 5 mg PO BEDTIME 90 days tramadol 50 mg PO DAILY PRN 28 days Tobacco use date assessed: 01/06/25 Fall risk assessment: No Falls in past year Dental Screening Dental Screen Date: 01/06/25 Did you have a dental visit in the last 12 months?: No Did you have a dental problem in the last 6 months where you did not have access to dental care?: No Was dental information given to patient?: No HPI f/u chronic conditions - see comments HPI Details 74 y/o male presents to f/u chronic conditions. BP today 124/62, 64p. He is on metoprolol 200mg, amlodipine 10mg, hydralazine 10mg t.i.d. Labs drawn 12/11/24. Reviewed labs with pt. Ongoing anemia. Creatinine level 1.53. Had been following up with orthopedics for L shoulder tendonitis. Reports sweats, dizziness about an hour after taking his bethanechol. HPI Comments History of Present Illness Details Documentation assistance for Jalen Casiano MD, was provided by Asim Kumar,? Footwear Machinery Instructor on 01/06/2025 at 10:03 AM EST. I, Dr. Casiano, have read, observed, and verified documentation. ?? PFSH Medical History Cardiomyopathy Heart murmur GERD (gastroesophageal reflux disease) Chronic renal insufficiency Arthritis High cholesterol HTN (hypertension) Surgical History Hx of total knee replacement History of esophagogastroduodenoscopy (EGD) H/O colonoscopy Hx of bilateral cataract extraction History of open reduction and internal fixation (ORIF) procedure Family History Father Diabetes Mother No problems noted. 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 1. Little interest or pleasure in doing things: not at all 2. Feeling down, depressed, or hopeless: not at all 3. Trouble falling or staying asleep, or sleeping too much: not at all 4. Feeling tired or having little energy: not at all 5. Poor appetite or overeating: not at all 6. Feeling bad about yourself - or that you are a failure or have let yourself or your family down: not at all 7. Trouble concentrating on things, such as reading the newspaper or watching television: not at all 8. Moving or speaking so slowly that other people could have noticed. Or the opposite - being so fidgety or restless that you have been moving around a lot more than usual: not at all 9. Thoughts that you would be better off or of hurting yourself in some way: not at all Total score: 0 Depression Screening Interpretation: Negative Depression Screening Done: Yes 83251 - PHQ-9 Billing: Yes Source: Developed by Drs. Yony Mora, Mariaelena Olguin, Anirudh Ferguson and colleagues, with an educational dieter from [employer]. Thrive Questionnaire Date Thrive assessed: 01/06/25 I am a: Patient What is your living situation today?: I have a steady place to live Within the past 12 months, did the food you bought not last and you didn't have the money to get more?: Never true Within the past 12 months, did you worry whether your food would run out before you got money to buy more?: Never true Do you have trouble paying for medicines?: No Do you have trouble getting transportation to medical appointments?: No Do you have trouble paying your heating and electricity bill?: No Do you have trouble taking care of your child, family member or friend?: No Do you have trouble with day-to-day activities such as bathing, preparing meals, shopping, managing finances, etc.?: No Are you currently unemployed and looking for a job?: No Are you interested in more education?: No Please select the resources that you would like help with: None Currently or been in a relationship where the following occur: No concerns reported THRIVE Score: 0 EMIL-7 AMB Questionnaire EMIL-7 Date EMIL - 7 assessed: 01/06/25 Source: Developed by Drs. Yony Mora, Mariaelena Olguin, Anirudh Ferguson and colleagues, with an educational dieter from [employer]. Review of Systems Const Denies chills, Denies fatigue, Denies fever(s), Denies headache(s) and Denies weakness ENT Denies dizziness and Denies headache(s) Card Denies dyspnea Resp Denies cough, Denies dyspnea, Denies wheezing and Denies other (shortness of breath) Musc Denies numbness and Denies tingling Neuro Denies dizziness, Denies headache(s), Denies numbness, Denies tingling and Denies weakness Psych Denies anxiety and Denies depression Endo Denies fatigue Aller/Immun Denies wheezing Physical exam (Primary Care) Vital Signs: Last Vital Signs Temp 97.7 F 01/06/25 09:34 Pulse 64 01/06/25 09:34 Resp 16 01/06/25 09:34 BP 124/62 01/06/25 09:34 Pulse Ox 98 01/06/25 09:34 Oxygen Delivery Method Room Air 01/06/25 09:34 BMI result Body Mass Index 29.0 Tobacco/Smoking Status: Tobacco use Status Tobacco use date assessed 01/06/25 01/06/25 09:39 Patient Tobacco Use Status Never used Tobacco 01/06/25 09:29 Tobacco use type Cigar 01/06/25 09:29 e-Cigarette/Vaping Use Never Used 01/06/25 09:29 PHQ-9: PHQ-9 Score PHQ-9: Total score 0 01/06/25 09:42 Depression Screening Interpretation: Negative Thrive Assessment: Date of Thrive Assessment Date Thrive assessed 01/06/25 01/06/25 09:39 Currently or been in a relationship where the following occur: No concerns reported Const General: well developed; No acute distress Nutritional Appearance: well nourished Orientation/consciousness: patient oriented x3 HENMT Head: Yes normocephalic and Yes atraumatic Eyes General: appearance normal, both eyes and all related structures Pupils: Equal, round and reactive pupils present EOM: EOMs intact bilaterally Resp Effort & Inspection: normal respiratory effort Neuro General: patient oriented x3 and gait normal Cranial nerves: Yes Equal, round and reactive pupils present Psych Affect: normal affect Coding Level of Care Code Est Pt Level 4 (02834) Diagnoses Hypertension I10 Anemia D64.9 Coronary artery disease I25.10 Chronic renal failure N18.9 Left shoulder tendonitis M77.8 Neurogenic urinary bladder disorder N31.9 Additional Codes PHQ-9 - 41430 - PHQ-9 Billing: Yes ([id number]) Assessment & Plan Assessment & Plan (1) Hypertension: Code(s): I10 - Essential (primary) hypertension Category: Medical Plan: Blood?pressure?is?controlled.??Goal?is?less?than?130/80 Continue?current?medications (2) Anemia: Code(s): D64.9 - Anemia, unspecified Category: Medical Plan: Mild?anemia?likely?secondary?to?chronic?renal?failure Improving Will?continue?to?monitor?periodically (3) Coronary artery disease: Code(s): I25.10 - Atherosclerotic heart disease of [place] coronary artery without angina pectoris Category: Medical Plan: Stable (4) Chronic renal failure: Code(s): N18.9 - Chronic kidney disease, unspecified Category: Medical Plan: Creatinine?1.54,?likely?at?baseline Continue?good?hydration Avoid?NSAIDs Control?blood?pressure?and?cholesterol (5) Left shoulder tendonitis: Code(s): M77.8 - Other enthesopathies, not elsewhere classified Category: Medical Plan: Patient?has?seen?ortho?and?they?recommended?conservative?care He?is?still?considering?steroid?treatment?but?wants?to?see?how?he?does?with?physical?therapy Starting?physical?therapy?soon (6) Neurogenic urinary bladder disorder: Code(s): N31.9 - Neuromuscular dysfunction of bladder, unspecified Category: Medical Plan: Bethanechol?and?terazosin?are?helping He?does?note?some?sweating?and?some?dizziness?but he?says?he?looked?up?adverse?effects?and?sees?that?these?are?fairly?common He?feels?he?can?tolerate?these. Advised?him?to?hydrate?well?and?stand?up?cautiously?before?walking?if?he?is?noting?any?dizziness.
[2025-01-06 09:34] VITALS: BP 124/62; PULSE 64; RESP 16; TEMP 36.5; O2SAT 98; BMI 29.0
--- OUTSIDE RECORDS SUMMARY | 2025-01-06 10:28 | XMS_ITS | Patient Health Record ---
Author Organization [facility] [place] Address [address] [place] [address] Care Team Providers Care Rn Bone Marrow Transplant Name Role Phone Ivana PETERS Jhoan Primary Care Provider UnaTom Stephens Unavailable [phone] Reason For Referral No Information Medications Medication SIG (Take, Route, Fr equency, Duration) Notes Start Date End Date Status Vitamin B50 Complex Active Vitamin D3 Active Magnesium Active Calcium Active Omeprazole Active Metoprolol-HCTZ ER A ctive amLODIPine-Atorvastatin Active Diovan Active Problems Problem Type SNOMED Code ICD Code Onset Dates Problem Status W/U Status Risk Notes Problem Acquired deformity of joint of big toe (disorder) (749075418) Hallux Limitus (735.8) Active confirmed Problem Hallux valgus (914136245) Hallux Valgus (735.0) Active confirmed Problem Polyostotic fibrous dysplasia of bone (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) Hypertrophy of Condyle (756.54) Active confirmed Problem Metatarsalgia (06892959) Metatarsalgia (726.70) Active confirmed Problem Metatarsalgia (finding) (74366042) Plantarflexed Metatarsal (838.04) Active confirmed Plan Of Treatment No Information Insurance Providers Payer Name Payer Address Payer Phone Subscriber Number Group Number Insured Name Patient Relationship to Insured Coverage Start Date Coverage End Date Blue Benefits [address] [address] [place] [address] [id number] Sami Lozoya Self - patient is the insured Medical (General) History Medical History History ICD Code Arthritis Back,Hip,and Knee pain Cholesterol High blood pressure Chicken pox Measles broken bones Reflux Surgical History Surgery Date(Month/Year) broken arm broken jaw
== END 2025-01-06 10:15 | disposition home or self-care (01) ==
LOC: HO.HMCFM 09:26
PROVIDERS: PCP Family Medicine; Visit Provider Family Medicine
DX: I12.9 Hypertensive chronic kidney disease with stage 1 through stage 4 chronic kidney disease, or unspecified chronic kidney disease (principal); D64.9 Anemia, unspecified; I25.10 Atherosclerotic heart disease of native coronary artery without angina pectoris; N18.9 Chronic kidney disease, unspecified; M77.8 Other enthesopathies, not elsewhere classified; N31.9 Neuromuscular dysfunction of bladder, unspecified

== ENCOUNTER → 2025-01-06 09:25 | Outpatient (BNVA) | payer MEDICARE, SELFPAY | PROVIDERS: PCP Family Medicine; Visit Provider Family Medicine | DX: I12.9 Hypertensive chronic kidney disease with stage 1 through stage 4 chronic kidney disease, or unspecified chronic kidney disease (principal); N18.9 Chronic kidney disease, unspecified; D63.1 Anemia in chronic kidney disease; I25.10 Atherosclerotic heart disease of native coronary artery without angina pectoris; M77.8 Other enthesopathies, not elsewhere classified; N31.9 Neuromuscular dysfunction of bladder, unspecified | CPT/HCPCS: 96127; 99212 ==

== ENCOUNTER 2025-01-29 09:06 | Outpatient (RCR) | payer MEDICARE, SELFPAY ==
--- NOTE | 2025-01-13 11:47 | MHC.PT.EP ---
[facility] [place] [facility] [place] [facility] [place] Office [address] Willow Tran [address] [phone] F: [phone] F: [phone] F: [phone] F: [phone] Physical Therapy Plan of Care Date of Evaluation: 01/13/25 Date of Surgery: Diagnosis: left shoulder tendonitis (RL) Assessment: pt is a 75 y/o male presenting to physical therapy w/ referring diagnosis of left shoulder tendonitis. Impairments include pain, decreased range of motion, decreased strength, impaired functional mobility, impaired postural awareness, and altered ambulation mechanics. pt is a good candidate for skilled PT due to age, potential remediation of impairments, typical disease/condition progression and prognosis, comorbidities, and motivation. pt would benefit from skilled PT intervention to provide a tailored strengthening and stretching exercise program, functional training, gait training, postural re-training, neuromuscular re-education, modalities as needed for pain, equipment safety demonstration. Frequency and Duration: The patient will be seen 2x/wk for 4 wks Short Term Goals: pt will be I w/ HEP to promote self-management of condition. pt will improve L shoulder flexion AROM by at least 15* to promote ease in overhead reaching into cabinets. Halfway Goals: pt will report a statistically significant improvement in self-reported outcome measure, SPADI, to promote return to PLOF. pt will improve L shoulder flexion and abduction strength to 5/5 to promote ease in lifting 5-10# overhead for work-related tasks. Treatment Plan: Modalities to reduce pain, spasms and effusion. Manual therapy to restore motion and function. Therapeutic exercise to improve strength and flexibility. Neuromuscular re-education for posture and balance. Therapeutic activities to return to functional activities of daily living. Electronically signed by: Margie Pepe PT, DPT Please sign and return to therapist. Thank you for your referral.
--- NOTE | 2025-02-13 09:36 | MHC.PT.DC ---
[facility] [place] Office [place] Office [place] Office [address] Willow Tran [address] [facility] [place] [phone] F: [phone] F: [phone] F: [phone] F: [phone] Physical Therapy Discharge Report Diagnosis: left shoulder tendonitis (RL) Date of Surgery: Date of Evaluation: 01/13/25 Date of Discharge: 02/13/25 Treatments to Date: 6 Cancellations to Date: 2 No Shows to Date: 0 Discharge Status: Patient Elected to Stop Discharge Summary: The patient overall reported his shoulder pain is less but still has some soreness. He stated his clicking is improving and does not happen as frequently. At this time, he feels he is independent with his home exercise program and would like to discharge from this plan of care. He is discharged per his request. Electronically signed by: Margie Pepe PT, DPT Please sign and return to therapist. Thank you for your referral.
== END 2025-02-13 09:37 | disposition home or self-care (01) ==
LOC: HO.PT 09:06
PROVIDERS: PCP Family Medicine; Visit Provider Physician Assistant
DX: M77.8 Other enthesopathies, not elsewhere classified (principal)
CPT/HCPCS: 97110; 97140; 97162

== ENCOUNTER 2025-04-02 10:51 | Outpatient (REF) | payer MEDICARE, SELFPAY ==
--- OUTSIDE RECORDS SUMMARY | 2024-09-08 14:55 | XMS_ITS | Encounter Summary ---
Author Organization [facility] Address [address] [facility] [address] [place] [phone] Phone Care Team Providers Care Director Of Digital Marketing Name Role Phone Jalen Casiano MD Primary Care Provider Encounter Details Date Type Department Care Team (Late st Contact Info) Description 09/08/2024 1:55 PM EST Hospital Encounter [facility] [address] [place] [address] [phone] Khushboo Parsons, EXHIBIT DISPLAY REPRESENTATIVE [address] [place] [address] Social History Tobacco Use Types Packs/Day Years [...] clinician's provided indication for this examination in [facility]: Pain; S/P Fall COMPARISON: None. Procedure Note Armani Ellis MD - 09/08/2024 XR SHOULDER 2 OR MORE VIEWS (LEFT) Referring clinician's provided indication for this examination in [facility]:Pain; S/P Fall COMPARISON: None. IMPRESSION: No acute fracture or dislocation. Mild to moderate degenerative changes ofthe acromioclavicular joint. No significant degenerative changes of theglenohumeral joint. No soft tissue calcification. us Khushboo Parsons EXHIBIT DISPLAY REPRESENTATIVE IMG XR UPPER EXTREMITY Final Result documented in this encounter Visit Diagnoses Not on filedocumented in this encounter Care Teams Director Of Digital Marketing Relationship Specialty Start Date End Date Jalen Casiano MD [address] [place] [address] PCP - General Family Medicine 09/08/24 documented as of this encounter Additional Source Comments The information contained in this document represents components of the legal health record. It is not the complete legal health record.[facility]
--- OUTSIDE RECORDS SUMMARY | 2025-04-02 12:20 | XMS_ITS | Patient Health Record ---
[facility] Organization [facility] [place] Address [address] [place] [address] Care Team Providers Care Transmission Builder Name Role Phone Ivana PETERS Jhoan Primary Care Provider UnaTom Stephens Unavailable [phone] Reason For Referral No Information Medications Medication [...] deformity of joint of big toe (disorder) (097159234) Hallux Limitus (735.8) Active confirmed Problem Hallux valgus (882832659) Hallux Valgus (735.0) Active confirmed Problem Polyostotic fibrous dysplasia of bone (41394016) Hypertrophy of Condyle (756.54) Active confirmed Problem Metatarsalgia (47986032) Metatarsalgia (726.70) Active confirmed Problem Metatarsalgia (finding) (30318850) Plantarflexed Metatarsal (838.04) Active confirmed Plan Of Treatment No Information Insurance Providers Payer Name Payer Address Payer Phone Subscriber Number Group Number Insured Name Patient Relationship to Insured Coverage Start Date Coverage End Date Blue Benefits [address] [address] [place] [address] [phone] [id number] Sami Lozoya Self - patient is the insured Medical (General) History Medical History History ICD Code Arthritis Back,Hip,and Knee pain Cholesterol High blood pressure Chicken pox Measles broken bones Reflux Surgical History Surgery Date(Month/Year) broken arm broken jaw
--- OUTSIDE RECORDS SUMMARY | 2025-04-02 12:20 | XMS_ITS | Patient Health Record ---
Author Organization [facility] Address [address] [place] [id number] Care Team Providers Care Sales Communications Manager Name Role Phone Ivana PETERS, Jhoan Primary Care Provider Tima Swartz Jr Allergies Allergen (clinical drug ingredient) Drug/Non Drug Allergy documented on EMR Reaction Allergy Type Onset Date Status Codeine Phosphate Unknown Drug Allergy Active Reason For Referral No Information Medications Medication SIG (Take, Route, Frequency, Duration) Notes Start Date End Date Status Omeprazole 20 MG 2 capsules Orally On ce a day Active Metoprolol Succinate ER 200 MG 1 tablet Orally Once a day A ctive Valsartan 160 MG 1 tablet Orally Once a day Active Suprep Bowel Prep 1 as directed Orally 1 for 1 dose 06/23/2015 Active amLODIPine-Atorvastatin 5-20 MG 1 tablet Orally Active Vitamin B50 Complex Orally Active Calcium Citrate + D3 250-200 MG-UNIT 1 tablet Orally ONCE A DAY Active Vitamin D3 2000 UNIT 1 capsule Orally On ce a day Active Magnesium 500 MG 1 capsule with food Orally Once a day Active Problems Problem Type SNOMED Code ICD Code Onset Dates Problem Status W/U Status Risk Notes Problem 561727503 Colon cancer screening (Z12.11) Active confirmed Problem 781210314 Gastroesophageal reflux disease without esophagitis (K21.9) Active confirmed Plan Of Treatment Future Test Test Name Order Date COLONOSCOPY 06/23/2015 Insurance Providers Payer Name Payer Address Payer Phone Subscriber Number Group Number Insured Name Patient Relationship to Insured Coverage Start Date Coverage End Date [facility] [address] [place] [phone] [id number] SARAH ZENG Self - patient is the insured Medical (General) History Medical History History ICD Code egd with bx 05-08-2008 colonoscopy 04-19-2005 gastric polyps duodenitis gastroesophageal reflux disease colitis hypertension elevated cholesterol degenerative joint disease involving the back Surgical History Surgery Date(Month/Year) nasal surgery knee surgery
--- OUTSIDE RECORDS SUMMARY | 2025-04-02 12:20 | XMS_ITS | Clinical Summary ---
Author Organization [facility] Address [address] [facility] [address] [place] [address] Phone Care Team Providers Care Supervisor Slitting And Shipping Name Role Phone Jalen Casiano MD Primary Care Provider [phone] Allergies No known active allergies Medications metoprolol [...] other day 30 tablet 3 3 Active bethanechol (URECHOLINE) 50 MG tablet Take 50 mg by mouth in the morning and 50 mg in the evening. Active terazosin (HYTRIN) 5 MG capsule Take 5 mg by mouth at bed time 5 Active hydrALAZINE (APRESOLINE) 10 MG tablet Take 1 tablet (10 mg total) by mouth in the morning and 1 tablet (10 mg total) in the evening and 1 tablet (10 mg total) before bedtime. Active Active Problems Problem Noted Date Diagnosed Date Benign prostatic hyperplasia with outflow obstru ction 2025 Acute nontraumatic kidney injury 06/18/2023 Hypertensive chronic kidney disease 11/20/2022 Essential (primary) hypertension 11/20/2022 Anemia, not otherwise specified 11/20/2022 Stage 3a chronic kidney disease 11/20/2022 Resolved Problems Problem Noted Date Diagnosed Date Resolved Date Stage 3b chronic kidney disease 06/18/2023 06/18/2023 Encounters Date Type Department Care Team Description 2025 3:30 PM EDT Office Visit [facility] [address] [phone] Richmond Noble MD Stage 3a chronic kidney disease (HCC) (Primary Dx); Hypertensive chronic kidney disease; Benign prostatic hyperplasia with outflow obstruction from Last 3 Months Family History Medical [...] Sign Reading Time Taken Comments Blood Pressure 116/60 2025 3:36 PM EDT Pulse 60 2025 3:36 PM EDT Temperature - - Respiratory Rate - - Oxygen Saturation 96% 2025 3:36 PM EDT Inhaled Oxygen Concentration - - Weight 111 kg (245 lb) 2025 3:36 PM EDT Height - - Body Mass Index - - Plan of Treatment Upcoming Encounters Date Type Department Care Team (Late st Contact Info) Description 09/14/2025 2:30 PM EST Office Visit [facility] [place] [id number] [phone] Richmond Noble MD [address] [facility] [address] [place] [phone] Health Maintenance Due Date Last Done Comments Pneumococcal Vaccine: 50+ Ye ars (1 of 2 - PCV) 1970 Colorectal Cancer Screening: Annual FOBT 01/13/2000 Colorectal Cancer Screening: Colonoscopy 01/13/2000 Colorectal Cancer Screening: Sigmoidoscopy 01/13/2000 Influenza Vaccine (#1) 2025 Hepatitis B Vaccine Aged Out No longe r eligible based on patient's age to complete this topic [place] [address] [facility] Care Teams Supervisor Slitting And Shipping Relationship Specialty Start Date End Date Jalen Casiano MD [address] [place] [phone] PCP - General Family Medicine 08/22/22
--- OUTSIDE RECORDS SUMMARY | 2025-04-02 12:20 | XMS_ITS | Clinical Summary ---
Author Organization [facility] Address [address] [address] Phone Care Team Providers Care Assistant Manager Bilingual Name Role Phone Jalen Casiano MD Primary Care Provider Allergies No known active allergies Medications amLODIPine (NORVASC) 10 MG tablet Take 1 tablet by mouth every morning. 08/10/2024 Active atorvastatin (LIPITOR) 40 MG tablet Take 1 tablet by mouth every morning. 08/18/2024 Active bethanechol (URECHOLINE) 50 MG tablet Take 1 tablet by mouth 2 (two) times a day. 08/28/2024 Active hydrALAZINE (APRESOLINE) 10 MG tablet Take 10 mg by mouth 3 (three) times a day. 08/20/2024 Active hydrALAZINE (APRESOLINE) 25 MG tablet take 1 tablet (25 mg total) by mouth in the morning and in the evening 07/11/2024 Active metoprolol succinate (TOPROL-XL) 200 MG 24 hr tablet Take 1 tablet by mouth every morning. 08/23/2024 Active omeprazole (PRILOSEC) 40 MG capsule TAKE 1 CAPSULE BY MOUTH EVERY MORNING FOR 90 DAYS 08/25/2024 Active traMADoL (ULTRAM) 50 mg tablet TAKE 1 TABLET BY MOUTH NEEDED NEEDED FOR PAIN FOR 28 DAYS 08/29/2024 Active Social History Tobacco Use Types Packs/Day Years [...] Sign Reading Time Taken Comments Blood Pressure 133/73 09/08/2024 1:47 PM EST Pulse 61 09/08/2024 1:47 PM EST Temperature 36.8 C (98.2 F) 09/08/2024 1:47 PM EST Respiratory Rate 17 09/08/2024 1:47 PM EST Oxygen Saturation 98% 09/08/2024 1:47 PM EST Inhaled Oxygen Concentration - - Weight - - Height - - Body Mass Index - - Plan of Treatment Health Maintenance Due Date Last Done Comments LIPID PANEL 1951 DEPRESSION SCREENING 1963 SMOKING Hx and SMOKELESS TOBACCO SCREENING 01/13/1964 HEPATITIS C SCREENING 1969 COLOGUARD 01/13/1996 COLONOSCOPY 01/13/1996 COLORECTAL CANCER SCREENING 01/13/1996 FIT TEST 01/13/1996 FOBT 01/13/1996 SIGMOIDOSCOPY 01/13/1996 VIRTUAL COLONOSCOPY 01/13/1996 PNEUMOCOCCAL VACCINES (50+ years) (1 of 1 - PCV) 2001 ZOSTER VACCINES (1 of 2) 2001 COVID-19 VACCINE (3 - 2023-2 5 season) 2024 12/15/2020, 11/17/2020 RSV VACCINE (1 - 1-dose 75+ series) 2026 Adult Td,Tdap Booster 01/25/2031 01/25/2021 HEPATITIS A VACCINES Aged Out No long er eligible based on patient's age to complete this topic HIB VACCINES Aged Out No longer eligi ble based on patient's age to complete this topic MENINGOCOCCAL VACCINES (ACWY) Aged Out No longer eligible based on patient's age to complete this topic MENINGOCOCCAL VACCINES (B) Aged Out N o longer eligible based on patient's age to complete this topic Medical Devices Not on file Insurance [employer] MEDICARE HMO REPLACEMENT MEDICARE HMO REPLACEMENT MEDICARE HMO REPLACEMENT MEDICARE HMO REPLACEMENT MEDICARE HMO REPLACEMENT MEDICARE HMO REPLACEMENT [employer] Care Teams Assistant Manager Bilingual Relationship Specialty Start Date End Date Jalen Casiano MD [address] [place] [address] PCP - General Family Medicine 09/08/24 Additional Source Comments The information contained in this document represents components of the legal health record. It is not the complete legal health record.[facility]
[2025-04-02 14:36] LABS: Appearance Urine Turbid; Glucose Urine UA Negative (Negative); PH 6.5 (5.0-9.0); Specific Gravity - Urine 1.010 (1.005-1.025); UMIC TRIGGER UA YES
== END 2025-04-02 10:52 | disposition home or self-care (01) ==
LOC: HO.WFDLDS 10:51
PROVIDERS: Visit Provider Urology
DX: R35.0 Frequency of micturition (principal); R39.15 Urgency of urination; R82.90 Unspecified abnormal findings in urine; N31.9 Neuromuscular dysfunction of bladder, unspecified
CPT/HCPCS: 81001; 87086; 87088; 87186

== ENCOUNTER 2025-04-30 11:18 | Outpatient (AMB) | payer MEDICARE, SELFPAY ==
--- NOTE | 2025-04-30 11:53 | MHC.OFFVIS ---
Intake Visit Reasons: 6M follow up/ PVR Intake Note: patient presents today for: 6mo follow up/PVR urology medications: sildenafil, terazosin blood thinners: aspirin today's PVR: 369mls Analyst Microbiology Lab Required: No Accompanied by: Self / Same As Patient Allergies codeine (From CODITUSSIN AC) Allergy (Intermediate, Verified 04/30/25 11:54) VOMITING guaifenesin (From CODITUSSIN AC) Allergy (Intermediate, Verified 04/30/25 11:54) VOMITING lactose (LACTOSE) Allergy (Intermediate, Verified 04/30/25 11:54) GI UPSET/DIARRHEA HPI Comments Details: Drew is a pleasant male. He is a patient Dr. Casiano. He seen for the following urologic conditions - neurogenic bladder - elevated PSA - erectile dysfunction Interval surveillance Continues with high PVR Prior discussion regarding InterStim Prior high PVR proximally 200 cc Open bladder neck - Grade 3 trabeculations with cellules and small diverticula - Continue on bethanechol PSA 11/27 4.5, 08/30 3.6 Neurogenic bladder On initial assessment found to have large postvoid residual of over 1000 cc PSA 11/26 5.1 Creatinine 1.7 Medical therapy finasteride, terazosin Imaging - 11/26 renal bladder ultrasound 80 g prostate GreenLight laser prostatectomy and suprapubic tube placement 05/28 [facility] Medical History Cardiomyopathy Heart murmur GERD (gastroesophageal reflux disease) Chronic renal insufficiency Arthritis High cholesterol HTN (hypertension) Surgical History Hx of total knee replacement History of esophagogastroduodenoscopy (EGD) H/O colonoscopy Hx of bilateral cataract extraction History of open reduction and internal fixation (ORIF) procedure Family History Father Diabetes Mother No problems noted. 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 Current occupational exposures/hazards: No Cognitive needs: No Hearing needs: No Vision needs: No Review of Systems Const Denies chills and Denies fever(s) Card Reports no additional complaints and Denies syncope Resp Denies cough GI Denies abdominal pain and Denies heartburn Reports as per HPI and Denies change in libido Neuro Denies syncope Psych Denies change in libido Endo Denies change in libido Physical Exam Const General: cooperative, healthy appearing, comfortable and no acute distress Orientation/consciousness: patient oriented x3 HEENT Face and sinus: Yes normal facial exam Mouth: moist mucous membranes Neck Neck: Yes normal visual inspection, Yes full ROM and Yes trachea midline Chest Chest palpation & inspection: normal inspection of the chest Resp Effort & Inspection: normal respiratory effort, able to speak in complete sentences and no respiratory distress GI Inspection: Yes normal to inspection Back/Spine/Pelvis Cervical Spine: normal cervical lordosis Thoracic/Lumbar Spine: thoracic and lumbar spine normal to inspection Skin General skin exam: no rashes or lesions noted Neuro General: patient oriented x3, gait normal, tone normal and moves all extremities Extrem General: Yes normal to inspection and Yes capillary refill normal Office Procedures Post Void Residual Post Residual Void Post Void Residual (PVR): 396 [id number]-Apcl Void Residual by ultrasound Results AMB Urinalysis, Automated UA Leukoctes 500 [place]/uL Last Edit by MARIA FERNANDA Cm on 04/30/25 13:21 UA Nitrite Last Edit by MARIA FERNANDA Cm on 04/30/25 13:21 UA Urobilinogen 0.2 mg/dL Last Edit by MARIA FERNANDA Cm on 04/30/25 13:21 UA Protein 15 mg/dL Last Edit by MARIA FERNANDA Cm on 04/30/25 13:21 UA pH 6.5 Last Edit by MARIA FERNANDA mC on 04/30/25 13:21 UA Blood 0 Jose/uL Last Edit by MARIA FERNANDA Cm on 04/30/25 13:21 UA Specific [place] 1.010 Last Edit by MARIA FERNANDA Cm on 04/30/25 13:21 UA Ketone Last Edit by MARIA FERNANDA Cm on 04/30/25 13:21 UA Bilirubin 1 mg/dL Last Edit by MARIA FERNANDA Cm on 04/30/25 13:21 UA Glucose 0 mg/dL Last Edit by MARIA FERNANDA Cm on 04/30/25 13:21 Results Reviewed Results Reviewed: Laboratory Last Values Urine pH (Auto) 6.5 04/30/25 13:20 Specific [place] (Auto) 1.010 04/30/25 13:20 Urine Protein (Auto) 15 mg/dL 04/30/25 13:20 Glucose (UA)(Auto) 0 mg/dL 04/30/25 13:20 Urine Blood (Auto) 0 Jose/uL 04/30/25 13:20 Urine Bilirubin (Auto) 1 mg/dL 04/30/25 13:20 Urine Urobilinogen (Auto) 0.2 mg/dL 04/30/25 13:20 Leukocyte Esterase (Auto) 500 [place]/uL 04/30/25 13:20 Assessment & Plan Assessment & Plan (1) Urinary hesitancy: Code(s): R39.11 - Hesitancy of micturition Category: Medical (2) Incomplete bladder emptying: Code(s): R33.9 - Retention of urine, unspecified Category: Medical Plan Six-month follow-up PVR Orders: Orders AMB Post Void Residual by ultrasound Today R39.15 - Urgency of urination AMB Urinalysis Automated Today Z13.9 - Encounter for screening, unspecified Patient Instructions: This note is constructed using voice recognition software. While every effort has been made to ensure accuracy medical assisting instructor errors may have been included. Imaging studies, laboratory and physical exam results were discussed and reviewed in detail. No major barriers to patient understanding were identified. An opportunity to ask questions regarding the treatment plan was provided. All questions were answered. The patient expressed understanding and agreement with the above treatment plan. The patient is aware they should contact our office by phone for worsening of their current condition or the appearance of new urologic symptoms. Compliance is encouraged with any medications and followup testing that is ordered. It is a privilege to participate in the urologic care of your patient. If you have any questions or concerns regarding treatment for the above conditions, or other urologic issues, please do not hesitate to contact me. The office telephone contact is [phone]. Sincerely, Dr Juan Carlos Sommers MD, [facility] - Urology Compassionate Specialist Care for the Genitourinary System Coding Level of Care Code Est Pt Level 3 (72616) Complex EM visit Add On G2211 Diagnoses Urinary hesitancy R39.11 Incomplete bladder emptying R33.9 CPT Codes Post Residual Void - PVR CPT Code: 76926-Kncd Void Residual by ultrasound ([id number])
== END 2025-04-30 12:12 | disposition home or self-care (01) ==
LOC: HO.HUSH 11:18
PROVIDERS: PCP Family Medicine; Visit Provider Urology
DX: R39.11 Hesitancy of micturition (principal); R33.9 Retention of urine, unspecified; Z13.9 Encounter for screening, unspecified
CPT/HCPCS: 99213; G2211

== ENCOUNTER → 2025-04-30 11:18 | Outpatient (BNVA) | payer MEDICARE, SELFPAY | PROVIDERS: PCP Family Medicine; Visit Provider Urology | DX: R39.11 Hesitancy of micturition (principal); R39.15 Urgency of urination; R33.9 Retention of urine, unspecified | CPT/HCPCS: 51798; 81003; 99212 ==

== ENCOUNTER 2025-05-11 07:28 | Outpatient (REF) | payer MEDICARE, SELFPAY ==
--- OUTSIDE RECORDS SUMMARY | 2024-09-08 14:55 | XMS_ITS | Encounter Summary ---
Author Organization [facility] Address [address] [facility] [address] [place] [phone] Phone Care Team Providers Care Research Chemical Engineer Name Role Phone Jalen Casiano MD Primary Care Provider Encounter Details Date Type Department Care Team (Late st Contact Info) Description 09/08/2024 1:55 PM EST Hospital Encounter [facility] [address] [place] [address] [phone] Khushboo Parsons, THREAD ROLLER [address] [place] [address] [email or web address] Social History Tobacco Use Types Packs/Day Years Used Date Smoking Tobacco: Never Assessed Education Answer Date Recorded Are you interested in more education? Not on yolanda e 09/08/2024 Are you concerned about learning? Not on file 09/08/2024 No 09/08/2024 No 09/08/2024 Digital Access Answer Date Recorded No 09/08/2024 No 09/08/2024 Reliable internet access at home? Not on file 09/08/2024 Device with a working camera? Not on file Sex and Gender Information Value Date Recorded Sex Assigned at Not on file Legal Sex Male 11:59 AM EST Gender Identity Not on file Sexual Orientation Not on file documented as of this encounter Plan of Treatment Not on file documented as of this encounter Procedures Procedure Name Priority Date/Time Associated Diagnosis Comments XR SHOULDER 2 VIEWS (LEFT) Urgent/patient waiting 09/08/2024 2:01 PM EST Acute pain of left shoulder documented in this encounter Results * XR SHOULDER 2 VIEWS (LEFT) (09/08/2024 2:01 PM EST) Anatomical Region Laterality Modality Shoulder Left Computed Radiogr aphy 09/08/2024 2:48 PM EST Impressions 09/08/2024 2:49 PM EST No acute fracture or dislocation. Mild to moderate degenerative changes of the acromioclavicular joint. No significant degenerative changes of the glenohumeral joint. No soft tissue calcification. Narrative 09/08/2024 2:49 PM EST XR SHOULDER 2 OR MORE VIEWS (LEFT) Referring clinician's provided indication for this examination in [facility]: Pain; S/P Fall COMPARISON: None. Procedure Note Armani Ellis MD - 09/08/2024 XR SHOULDER 2 OR MORE VIEWS (LEFT) Referring clinician's provided indication for this examination in [facility]:Pain; S/P Fall COMPARISON: None. IMPRESSION: No acute fracture or dislocation. Mild to moderate degenerative changes ofthe acromioclavicular joint. No significant degenerative changes of theglenohumeral joint. No soft tissue calcification. us Khushboo Parsons THREAD ROLLER IMG XR UPPER EXTREMITY Final Result documented in this encounter Visit Diagnoses Not on filedocumented in this encounter Care Teams Research Chemical Engineer Relationship Specialty Start Date End Date Jalen Casiano MD [address] [place] [address] PCP - General Family Medicine 09/08/24 documented as of this encounter Additional Source Comments The information contained in this document represents components of the legal health record. It is not the complete legal health record.[facility]
--- OUTSIDE RECORDS SUMMARY | 2025-05-11 07:31 | XMS_ITS | Clinical Summary ---
Author Organization [facility] Address [address] [facility] [address] [place] [address] Phone Care Team Providers Care Federal Mediator Name Role Phone Jalen Casiano MD Primary [...] Stage 3b chronic kidney disease 06/18/2023 06/18/2023 Family History Medical History Relation Comments Hypertension [...] Office Visit [facility] [address] [address] [place] Noble MD [address] [address] Health Maintenance Due Date Last Done Comments Pneumococcal Vaccine: 50+ Ye ars (1 of 2 - PCV) 1970 Colorectal Cancer Screening: Annual FOBT 01/13/2000 Colorectal Cancer Screening: Colonoscopy 01/13/2000 Colorectal Cancer Screening: Sigmoidoscopy 01/13/2000 Influenza Vaccine (#1) 2025 Hepatitis B Vaccine Aged Out No longe r eligible based on patient's age to complete this topic Insurance [facility] Care Teams Federal Mediator Relationship Specialty Start Date End Date Jalen Casiano MD [address] [address] PCP - General Family Medicine 08/22/22
--- OUTSIDE RECORDS SUMMARY | 2025-05-11 07:31 | XMS_ITS | Patient Health Record ---
Author Organization [facility] Address [address] [place] [address] Care Team Providers Care Engineering Analyst Name Role Phone Ivana PETERS, Jhoan Primary Care Provider iTma Swartz Jr [phone] Allergies Allergen (clinical drug ingredient) Drug/Non Drug [...] Problem Status W/U Status Risk Notes Problem [id number] Colon cancer screening (Z12.11) Active confirmed Problem [id number] Gastroesophageal reflux disease without esophagitis (K21.9) Active confirmed Plan Of Treatment Future Test Test Name Order Date COLONOSCOPY 06/23/2015 Insurance Providers Payer Name Payer Address Payer Phone Subscriber Number Group Number Insured Name Patient Relationship to Insured Coverage Start Date Coverage End Date [facility] [address] [place] [address] [id number] SARAH ZENG Self - patient is the insured Medical (General) History Medical History History ICD Code egd with bx 05-08-2008 colonoscopy 04-19-2005 gastric polyps duodenitis gastroesophageal reflux disease colitis hypertension elevated cholesterol degenerative joint disease involving the back Surgical History Surgery Date(Month/Year) nasal surgery knee surgery
--- OUTSIDE RECORDS SUMMARY | 2025-05-11 07:31 | XMS_ITS | Clinical Summary ---
Author Organization [facility] Address [address] [address] Phone Care Team Providers Care Cardiopulmonary Supervisor Name Role Phone Jalen Casiano MD Primary [...] 2001 ZOSTER VACCINES (1 of 2) 2001 INFLUENZA VACCINE (#1) 2025 COVID-19 VACCINE (3 - 2024-2 6 season) 2025 12/15/2020, 11/17/2020 RSV VACCINE (1 - 1-dose [...] Devices Not on file Insurance [employer] [place] MEDICARE HMO REPLACEMENT MEDICARE HMO REPLACEMENT MEDICARE HMO REPLACEMENT MEDICARE H[place] [address] [place] [address] MEDICARE HMO REPLACEMENT MEDICARE HMO REPLACEMENT [employer] Care Teams Cardiopulmonary Supervisor Relationship Specialty Start Date End Date Jalen Casiano MD [address] [place] [address] PCP - General Family Medicine 09/08/24 Additional Source Comments The information contained in this document represents components of the legal health record. It is not the complete legal health record.[facility]
--- OUTSIDE RECORDS SUMMARY | 2025-05-11 07:31 | XMS_ITS | Patient Health Record ---
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) Active confirmed Problem Metatarsalgia (19253057) Metatarsalgia (726.70) Active confirmed Problem Metatarsalgia (finding) (75451554) 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
[2025-05-11 12:01] LABS: Alanine Aminotransferase 29 U/L (0-40); Albumin Level 4.1 g/dL (3.5-5.0); Alkaline Phosphatase 72 U/L (39-117); Anion Gap 10 (12-20); Aspartate Amino Transferase 36 U/L (5-37); Blood Urea Nitrogen 25 mg/dL (9-16); Calcium 9.0 mg/dL (8.4-10.2); Carbon Dioxide 23 mmol/L (22-29); Chloride 109 mmol/L (96-108); Cholesterol 114 mg/dL (<200); Estimated Glomerular Filt Rate 39; HDL Cholesterol 38 mg/dL (>40); Potassium 4.1 mmol/L (3.3-5.1); Sodium 138 mmol/L (135-145); Total Protein 6.7 g/dL (6.5-8.0); Triglycerides 121 mg/dL (<150)
== END 2025-05-11 07:29 | disposition home or self-care (01) ==
LOC: HO.WFDLDS 07:28
PROVIDERS: Visit Provider Family Medicine
DX: Z00.00 Encounter for general adult medical examination without abnormal findings (principal); I25.10 Atherosclerotic heart disease of native coronary artery without angina pectoris
CPT/HCPCS: 36415; 80053; 80061

== ENCOUNTER 2025-05-13 09:08 | Outpatient (AMB) | payer MEDICARE, SELFPAY ==
--- NOTE | 2025-05-13 09:26 | A.OFFPC_ITS ---
Vital Signs 05/13/25 09:33 Height 6 ft 5 in Weight 238 lb 4 oz BMI 28.2 BP 123/57 L Blood Pressure Location Lt brachial Position Sitting Respiration 16 Pulse 62 Pulse Source Pulse Oximeter Temp 97.7 F Temp Source Oral Pulse Oximetry (%) 97 Oxygen Delivery Method Room Air Intake Visit Reasons: f/u HTN, kidney functions, labs Intake Note: patient here for follow up on HTN and kidney function, labs Functional Architect Required: No Allergies codeine (From CODITUSSIN AC) Allergy (Intermediate, Verified 05/13/25 09:29) VOMITING guaifenesin (From CODITUSSIN AC) Allergy (Intermediate, Verified 05/13/25 09:29) VOMITING lactose (LACTOSE) Allergy (Intermediate, Verified 05/13/25 09:29) GI UPSET/DIARRHEA Tobacco use date assessed: 05/13/25 Fall risk assessment: No Falls in past year Last assessed Fall Risk: 05/13/25 Dental Screening Dental Screen Date: 05/13/25 Did you have a dental visit in the last 12 months?: No Did you have a dental problem in the last 6 months where you did not have access to dental care?: No Was dental information given to patient?: No HPI f/u HTN, kidney functions, labs HPI Details 75 y/o male presents to f/u HTN, kidney functions, labs. BP today 123/57, 62p. He is on metoprolol 200mg, amlodipine 10mg. Labs drawn 05/11/25. Reviewed labs with pt. Creatinine level 1.72. Triglycerides 121. TC 114. LDL 52. HDL low at 38. He is on artovastatin 40mg daily. [facility] Medical History Cardiomyopathy Heart murmur GERD (gastroesophageal reflux disease) Chronic renal insufficiency Arthritis High cholesterol HTN (hypertension) Surgical History Hx of total knee replacement History of esophagogastroduodenoscopy (EGD) H/O colonoscopy Hx of bilateral cataract extraction History of open reduction and internal fixation (ORIF) procedure Family History Father Diabetes Mother No problems noted. 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 Current occupational exposures/hazards: No Cognitive needs: No Hearing needs: No Vision needs: No Questionnaire Thrive Questionnaire Date Thrive assessed: 09/11/24 I am a: Patient What is your living situation today?: I have a steady place to live Within the past 12 months, did the food you bought not last and you didn't have the money to get more?: Never true Within the past 12 months, did you worry whether your food would run out before you got money to buy more?: Never true Do you have trouble paying for medicines?: No Do you have trouble getting transportation to medical appointments?: No Do you have trouble paying your heating and electricity bill?: No Do you have trouble taking care of your child, family member or friend?: No Do you have trouble with day-to-day activities such as bathing, preparing meals, shopping, managing finances, etc.?: No Are you currently unemployed and looking for a job?: No Are you interested in more education?: No Please select the resources that you would like help with: None Currently or been in a relationship where the following occur: No concerns reported THRIVE Score: 0 EMIL-7 AMB Questionnaire EMIL-7 Date EMIL - 7 assessed: 01/06/25 Source: Developed by Drs. Yony Mora, Mariaelena Olguin, Anirudh Ferguson and colleagues, with an educational dieter from [employer]. Review of Systems Const Denies chills, Denies fatigue, Denies fever(s), Denies headache(s) and Denies weakness ENT Denies dizziness and Denies headache(s) Card Denies dyspnea Resp Denies cough, Denies dyspnea, Denies wheezing and Denies other (shortness of breath) Musc Denies numbness and Denies tingling Neuro Denies dizziness, Denies headache(s), Denies numbness, Denies tingling and Denies weakness Psych Denies anxiety and Denies depression Endo Denies fatigue Aller/Immun Denies wheezing Physical exam (Primary Care) Vital Signs: Last Vital Signs Temp 97.7 F 05/13/25 09:33 Pulse 62 05/13/25 09:33 Resp 16 05/13/25 09:33 BP 123/57 L 05/13/25 09:33 Pulse Ox 97 05/13/25 09:33 Oxygen Delivery Method Room Air 05/13/25 09:33 BMI result Body Mass Index 28.2 Tobacco/Smoking Status: Tobacco use Status Tobacco use date assessed 05/13/25 05/13/25 09:36 Patient Tobacco Use Status Never used Tobacco 05/13/25 09:28 Tobacco use type Cigar 05/13/25 09:28 e-Cigarette/Vaping Use Never Used 05/13/25 09:28 Thrive Assessment: Date of Thrive Assessment Date Thrive assessed 09/11/24 05/13/25 09:28 Currently or been in a relationship where the following occur: No concerns reported Const General: well developed; No acute distress Nutritional Appearance: well nourished Orientation/consciousness: patient oriented x3 HENMT Head: Yes normocephalic and Yes atraumatic Eyes General: appearance normal, both eyes and all related structures Pupils: Equal, round and reactive pupils present EOM: EOMs intact bilaterally Resp Effort & Inspection: normal respiratory effort Neuro General: patient oriented x3 and gait normal Cranial nerves: Yes Equal, round and reactive pupils present Psych Affect: normal affect Coding Level of Care Code Est Pt Level 4 (35715) Diagnoses Hypertension I10 Coronary artery disease I25.10 Chronic renal failure N18.9 Hyperlipidemia E78.5 Assessment & Plan Assessment & Plan (1) Hypertension: Code(s): I10 - Essential (primary) hypertension Category: Medical Plan: Blood pressure is well controlled. Goal is less than 130/80 Continue current medications (2) Coronary artery disease: Code(s): I25.10 - Atherosclerotic heart disease of [place] coronary artery without angina pectoris Category: Medical Plan: Stable HDL is slightly low and I encouraged ongoing exercise and shift in [place] 3 fatty acids in diet The rest of his lipid panel is controlled Will recheck again with next blood draw (3) Chronic renal failure: Code(s): N18.9 - Chronic kidney disease, unspecified Category: Medical Plan: Creatinine has risen from 1.54-1.72 Blood pressure is well controlled. No offending medications Encouraged good hydration Was recently seen by his flash developer and will follow-up as recommended (4) Hyperlipidemia: Code(s): E78.5 - Hyperlipidemia, unspecified Category: Medical Plan: As above, HDL slightly low Will continue to monitor Continue atorvastatin
[2025-05-13 09:33] VITALS: BP 123/57; PULSE 62; RESP 16; TEMP 36.5; O2SAT 97; BMI 28.2
== END 2025-05-13 10:20 | disposition home or self-care (01) ==
LOC: HO.HMCFM 09:09
PROVIDERS: PCP Family Medicine; Visit Provider Family Medicine
DX: I12.9 Hypertensive chronic kidney disease with stage 1 through stage 4 chronic kidney disease, or unspecified chronic kidney disease (principal); I25.10 Atherosclerotic heart disease of native coronary artery without angina pectoris; N18.9 Chronic kidney disease, unspecified; E78.5 Hyperlipidemia, unspecified

== ENCOUNTER → 2025-05-13 09:08 | Outpatient (BNVA) | payer MEDICARE, SELFPAY | PROVIDERS: PCP Family Medicine; Visit Provider Family Medicine | DX: I12.9 Hypertensive chronic kidney disease with stage 1 through stage 4 chronic kidney disease, or unspecified chronic kidney disease (principal); N18.9 Chronic kidney disease, unspecified; I25.10 Atherosclerotic heart disease of native coronary artery without angina pectoris; E78.5 Hyperlipidemia, unspecified; Z79.899 Other long term (current) drug therapy | CPT/HCPCS: 99212 ==

== ENCOUNTER 2025-05-25 12:56 | Outpatient (REF) | payer MEDICARE, SELFPAY ==
[2025-05-25 14:30] LABS: Appearance Urine Turbid; Glucose Urine UA Negative (Negative); PH 6.5 (5.0-9.0); Specific Gravity - Urine 1.015 (1.005-1.025); UMIC TRIGGER UA YES
== END 2025-05-25 12:57 | disposition home or self-care (01) ==
LOC: HO.WFDLDS 12:56
PROVIDERS: Visit Provider Urology
DX: R82.90 Unspecified abnormal findings in urine (principal)
CPT/HCPCS: 81001; 87086; 87088; 87186